=== PATIENT | female | born 1940 | race Caucasian/White ===

== ENCOUNTER 2016-09-05 13:29 | Emergency (ER) | payer MEDICARE ==
[~2016-09-05] VITALS: Ht 165.1 cm; Wt 73.0 kg
[~2016-09-05 13:29] MED LIST: AMLO10 PO; CLON.2 PO; ECOT81TA2 PO; ESTR.625 PO; LEVO.025 PO; LIPI10TA PO; LISI-363 PO; METO50TA PO; MULT-65 PO; OMEP20TA PO; TYLE3 PO
[2016-09-05 13:33] VITALS: BP 118/64; PULSE 64; RESP 16; TEMP 97.5; O2SAT 92
--- NOTE | 2016-09-05 15:45 | PD ---
HPI Chief Complaint: Fall Time Seen by Provider: 13:50 Travel History International Travel<30 days: No Contact w/Intl Traveler<30days: No Traveled to known affect area: No History of Present Illness HPI This 76-year-old woman who presents to the emergency department complaining of headache and drowsiness and dizziness since a fall about 7 AM. She has a history of chronic unsteadiness of frequent falls. States she always falls backwards. She has a meningioma, as well as vertebrobasilar vascular disease. She is not on any blood thinners. No other complaints. History Past Medical History Narrative Medical Meningioma Vertebrobasilar disease Recall his Hypertension AVR Hyperlipidemia Hypothyroidism Tetanus Vaccination: < 5 Years Influenza Vaccination: Yes Menopausal: Yes Social History Alcohol Use: No Tobacco Use: No Allergies-Medications (Allergen,Severity, Reaction): Coded Allergies: No Known Allergies (Verified , 09/05/16) Reported Meds & Prescriptions Reported Meds & Active Scripts Active Tylenol #3 (Acetaminophen/Codeine Phosphate) Acetaminophen 300/30 Codeine Tab 1 Tab PO Q6H PRN FOR PAIN Ecotrin (Aspirin) 81 Mg Tabec 81 Mg PO DAILY PRN Catapres 0.2 mg (Clonidine HCl) 0.2 Mg Tab 0.3 Mg PO BID Norvasc (Amlodipine Besylate) 10 Mg Tab 10 Mg PO DAILY PRN Reported Levothyroxine 25 mcg (Levothyroxine Sodium) 25 Mcg Tab 50 Mcg PO DAILY Multi-Vitamin Daily (Multivitamins) Daily Tab 1 PO Omeprazole 20 mg (Omeprazole) 20 Mg Tab 20 Mg PO DAILY Lipitor 10 Mg Tab (Atorvastatin Calcium) 10 Mg Tab 10 Mg PO HS Metoprolol Tartrate 50 mg (Metoprolol Tartrate) 50 Mg Tab 75 Mg PO BID Lisinopril 20 mg (Lisinopril) 20 Mg Tab 20 Mg PO BID Premarin (Estrogens Conjugated) 0.625 Mg Tab 0.5 Mg PO Review of Systems Except as stated in HPI: all other systems reviewed are Neg Physical Exam Narrative GENERAL: [-76-year-old woman, no acute distress. SKIN: Focused skin assessment warm/dry. HEAD: Normocephalic. Acetaminophen evidence of trauma. EYES: Pupils equal and round. No scleral icterus. No injection or drainage. ENT: No nasal bleeding or discharge. Mucous membranes pink and moist. NECK: Minimal midline tenderness. Moves neck freely. No guarding. CARDIOVASCULAR: Regular rate and rhythm. No murmur appreciated. RESPIRATORY: No accessory muscle use. Clear to auscultation. Breath sounds equal bilaterally. GASTROINTESTINAL: Abdomen soft, non-tender, nondistended. Hepatic and splenic margins not palpable. MUSCULOSKELETAL: No obvious deformities. No clubbing. No cyanosis. No edema. NEUROLOGICAL: Awake and alert. No obvious cranial nerve deficits. Motor grossly within normal limits. Normal speech. Data Data Last Documented VS Vital Signs Date Time Temp Pulse Resp B/P Pulse Ox O2 Delivery O2 Flow Rate FiO2 09/05/16 17:08 58 16 153/72 98 Room Air 09/05/16 13:[address] Brain W/O Iv Contrast(Rout) (09/05/16 ) [facility] Medical Decision Making Medical Screen Exam Complete: Yes Emergency Medical Condition: Yes Interpretation(s) CT head: Increase in size of injury cranial mass, as probable meningioma. Otherwise Negative. Differential Diagnosis Head injury, bleed, chronic dizziness, other Narrative Course Medical decision making INITIAL: 76-year-old woman, presents after a fall. History of chronic unsteadiness and frequent falls. We'll check CT, if negative discharge. Diagnosis Primary Impression: Headache Additional Impression: Fall Additional Instructions: Follow-up with your primary doctor in the next 2-4 days. Take every precaution prevent falls. Consider weaning off her sedating medication including Restoril, Xanax, and tramadol. Med/Other Pt SpecificInfo: No Change to Meds Disposition: 01 DISCHARGE HOME Condition: Stable Josep Garrison MD Sep 05, 2016 15:45
[2016-09-05 17:08] VITALS: BP 153/72; PULSE 58; RESP 16; O2SAT 98
--- NOTE | 2016-09-05 17:09 | RADRPT ---
EXAM DATE/TIME: 09/05/2016 16:22 [facility] COMPARISON: CT BRAIN W/O CONTRAST, September 05, 2014, 15:12. INDICATIONS : Fell today hit back of head. RADIATION DOSE: 56.37 CTDIvol (mGy) MEDICAL HISTORY : Hypertension. Hypothyroidism. Meningioma,vertebrobasilar disease SURGICAL HISTORY : None. ENCOUNTER: Initial ACUITY: 1 day PAIN SCALE: 3/10 LOCATION: cranial TECHNIQUE: Multiple contiguous axial images were obtained of the head. Using automated exposure control and adj ustment of the mA and/or kV according to patient size, radiation dose was kept as low as reasonably a chievable to obtain optimal diagnostic quality images. 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 No evidence of intracranial hemorrhage, new mass, or a cute infarct. Ventricles within normal limits. POSTERIOR FOSSA: The cerebellum and brainstem are intact. The 4th ventricle is midline. The cerebellopontine angle i s unremarkable. EXTRACRANIAL: The visualized portion of the orbits is intact. SKULL: The calvaria is intact. No evidence of skull fracture. CONCLUSION: 1. Right-sided lateral temporoparietal extra-axial mass is again identified. It has increased in size when compared to the prior study of 09/05/2014. Now measuring 2.8 x 1.4 cm compared to 2.1 x 1.0 cm. A gain may represent a meningioma but is nonspecific, particularly given its increase in size.. 2. No acute hemorrhage. Galdino Alegria MD on September 05, 2016 at 17:03 Board Certified Radiologist. This report was verified electronically.
== END 2016-09-05 17:38 | disposition home or self-care (01) ==
LOC: PHED 13:29
DX: R51 Headache (principal); W19.XXXA Unspecified fall, initial encounter
CPT/HCPCS: 70450; 99284

== ENCOUNTER 2017-03-03 12:56 | Emergency (ER) | payer MEDICARE ==
[~2017-03-03] VITALS: Ht 162.6 cm; Wt 85.0 kg
[2017-03-03 13:03] VITALS: BP 131/60; PULSE 51; RESP 16; TEMP 97.5; O2SAT 98
== END 2017-03-03 14:15 | disposition left against medical advice (07) ==
LOC: PHED 12:56
DX: S09.90XA Unspecified injury of head, initial encounter (principal); W01.0XXA Fall on same level from slipping, tripping and stumbling without subsequent striking against object, initial encounter; Z53.21 Procedure and treatment not carried out due to patient leaving prior to being seen by health care provider
CPT/HCPCS: 99281

== ENCOUNTER 2017-04-16 12:36 | Inpatient (IN) | payer MEDICARE ==
[~2017-04-16 12:36] MED LIST changes: +DEXAMETHASONE SOD PHOS 4 MG/ML VIAL IV ONE; +GLYCOPYRROLATE 1 MG/5 ML SYRINGE IV PUSH ONE; +LIDOCAINE HCL 1% PF 5 ML SYRINGE OTHER ONE; +ONDANSETRON HCL 4 MG/2 ML VIAL IV ONE; +PROPOFOL 200 MG/20 ML AMP IV ONE; +ROCURONIUM INJ 50 MG/5 ML SYRINGE IV PUSH ONE
[2017-04-16 12:47] VITALS: BP 144/63; PULSE 87; RESP 18; TEMP 97.8; O2SAT 96
--- NOTE | 2017-04-16 13:29 | PD ---
HPI Chief Complaint: Fall Time Seen by Provider: 13:18 Travel History International Travel<30 days: No Contact w/Intl Traveler<30days: No Traveled to known affect area: No History of Present Illness HPI 77-year-old female that presents to the ED for evaluation of head injury. Per patient apparently she was seen at a different hospital yesterday roxanna Bhat had a CAT scan that showed bleeding. The time patient apparently left the hospital. Unclear as to why. Apparently the patient no wide to stay at the hospital at the time. She apparently was contacted today and was told that she had a severe head bleed and needed to come to the ED immediately. She has a history of brain tumor and is currently being under the watch of Dr. Gutierres. Per patient she was referred to a neurosurgeon who "wanted to cut it off" but she did not believe him and did not want to have it done at the time. She states that she's been having problems with balance since around Christmastime she fell and hit her head. She has been having issues since. Unclear as to what brought the examination yesterday but she states that she had a fall. Again unclear what she left but it seems like she left AMA. She did not want to stay at the time. Unclear as to why. She reports that she still having balance issues. She does have a slight headache. She does have a skin abrasion to the right side of the head. Per patient she's been feeling a little more lethargic. She denies any chest pain or shortness of breath. No blood thinner use. No leg or arm weakness. Slight headache of 2 out of 10. PFSH Past Medical History Autoimmune Disease: No Blood Disorders: No Anxiety: Yes Heart Rhythm Problems: Yes Cancer: No Cardiovascular Problems: Yes High Cholesterol: Yes Cerebrovascular Accident: Yes (09/2014) Diminished Hearing: No Endocrine: No Gastrointestinal Disorders: Yes GERD: Yes Genitourinary: No Headaches: Yes Hypertension: Yes Immune Disorder: No Musculoskeletal: Yes Neurologic: No Psychiatric: No Reproductive: No Respiratory: No ?: Not Menopausal: Yes Past Surgical History Abdominal Aneurysm Repair: Yes Abdominal Surgery: Yes (AORTIC ANEURYSM REPAIR, appendectomy) AICD: No Appendectomy: Yes Arteriovenous Shunt: No Cardiac Surgery: Yes (2006 AORTIC ANEURYSM REPAIR WITH AORTIC VALVE REPLACEMENT) Cholecystectomy: Yes (1998) Gynecologic Surgery: Yes (HYSTERECTOMY) Hysterectomy: Yes (COMPLETE AGE 48) Insulin Pump: No Joint Replacement: No Pacemaker: No Thoracic Surgery: No Tonsillectomy: Yes ( CHILD) Valve Replacement: Yes (X2) Other Surgery: Yes Social History Alcohol Use: No Tobacco Use: No Substance Use: No Allergies-Medications (Allergen,Severity, Reaction): Coded Allergies: No Known Allergies (Verified Adverse Reaction, Unknown, 04/16/17) Reported Meds & Prescriptions Reported Meds & Active Scripts Active Reported Pilocarpine 5 Mg Tab 5 Mg PO Q6HR Tramadol (Tramadol HCl) 50 Mg Tab 50 Mg PO Q6H PRN Temazepam 15 Mg Cap 15 Mg PO HS PRN Multi-Vitamin Daily (Multiple Vitamin) 1 Tab Tab 1 Tab PO DAILY Omeprazole 20 Mg Tab 20 Mg PO DAILY Metoprolol Tartrate 25 Mg Tab 25 Mg PO BID Lisinopril 5 Mg Tab 5 Mg PO DAILY Levothyroxine (Levothyroxine Sodium) 50 Mcg Tab 50 Mcg PO DAILY Hydrocodone-Acetaminophen 5-325 mg Tab 1 Tab PO Q4H PRN Estradiol 1 Mg Tab 1 Mg PO DAILY Clonidine (Clonidine HCl) 0.1 Mg Tab 0.1 Mg PO BID Atorvastatin (Atorvastatin Calcium) 20 Mg Tab 20 Mg PO HS Aspirin Low Dose (Aspirin) 81 Mg Chew 81 Mg CHEW DAILY Amlodipine (Amlodipine Besylate) 10 Mg Tab 10 Mg PO DAILY Alprazolam 0.5 Mg Tab 0.5 Mg PO Q6H PRN Review of Systems Except as stated in HPI: all other systems reviewed are Neg Physical Exam Narrative GENERAL: SKIN: Warm and dry. HEAD: Atraumatic. Normocephalic. Patient has a skin abrasion with skin tear on the right side of the forehead. Slightly tender to touch. Minimal bleeding noted. EYES: Pupils equal and round 2 mm reactive to light and accommodation. No scleral icterus. No injection or drainage. ENT: No nasal bleeding or discharge. Mucous membranes pink and moist. Tongue is midline. No uvula deviation. NECK: Trachea midline. No JVD. CARDIOVASCULAR: Regular rate and rhythm. No murmurs, S3, S4. RESPIRATORY: No accessory muscle use. Clear to auscultation. Breath sounds equal bilaterally. GASTROINTESTINAL: Abdomen soft, non-tender, nondistended. Hepatic and splenic margins not palpable. MUSCULOSKELETAL: Extremities without clubbing, cyanosis, or edema. No obvious deformities. Full range of motion of the upper and lower extremities bilaterally. 2+ pulses bilaterally. NEUROLOGICAL: Awake and alert. No obvious cranial nerve deficits. Motor grossly within normal limits. Five out of 5 muscle strength in the arms and legs. Normal speech. PSYCHIATRIC: Appropriate mood and affect; insight and judgment normal. Data Data Last Documented VS Vital Signs Date Time Temp Pulse Resp B/P (MAP) Pulse Ox O2 Delivery O2 Flow Rate FiO2 04/16/17 14:05 52 18 173/71 (105) 95 Room Air 04/16/17 12:[address] Brain W/O Iv Contrast(Rout) (04/16/17 ) Ct Cerv Spine W/O Contrast (04/16/17 ) Complete Blood Count With Diff (04/16/17 13:26) Comprehensive Metabolic Panel (04/16/17 13:26) Prothrombin Time / Inr (Pt) (04/16/17 13:26) Act Partial Throm Time (Ptt) (04/16/17 13:26) Urinalysis - C+S If Indicated (04/16/17 13:26) Magnesium (Mg) (04/16/17 13:26) Chest, Single Ap (04/16/17 13:26) Iv Access Insert/Monitor (04/16/17 13:26) Ecg Monitoring (04/16/17 13:26) Oximetry (04/16/17 13:26) Admit Order (Ed Use Only) (04/16/17 14:09) Labs Laboratory Tests Test 04/16/17 13:50 White Blood Count 12.1 TH/MM3 Red Blood Count 3.90 MIL/MM3 Hemoglobin 11.4 GM/DL Hematocrit 35.0 % Mean Corpuscular Volume 89.9 FL Mean Corpuscular Hemoglobin 29.3 PG Mean Corpuscular Hemoglobin Concent 32.6 % Red Cell Distribution Width 14.5 % Platelet Count 197 TH/MM3 Mean Platelet Volume 8.4 FL Neutrophils (%) (Auto) 76.4 % Lymphocytes (%) (Auto) 15.5 % Monocytes (%) (Auto) 7.7 % Eosinophils (%) (Auto) 0.0 % Basophils (%) (Auto) 0.4 % Neutrophils # (Auto) 9.3 TH/MM3 Lymphocytes # (Auto) 1.9 TH/MM3 Monocytes # (Auto) 0.9 TH/MM3 Eosinophils # (Auto) 0.0 TH/MM3 Basophils # (Auto) 0.0 TH/MM3 CBC Comment DIFF FINAL Differential Comment Prothrombin Time 11.1 SEC Prothromb Time International Ratio 1.1 RATIO Activated Partial Thromboplast Time 22.7 SEC Blood Urea Nitrogen 24 MG/DL Creatinine 1.12 MG/DL Random Glucose 118 MG/DL Total Protein 6.8 GM/DL Albumin 3.5 GM/DL Calcium Level 8.8 MG/DL Magnesium Level 2.8 MG/DL Alkaline Phosphatase 114 U/L Aspartate Amino Transf (AST/SGOT) 23 U/L Alanine Aminotransferase (ALT/SGPT) 29 U/L Total Bilirubin 0.2 MG/DL Sodium Level 143 MEQ/L Potassium Level 4.1 MEQ/L Chloride Level 108 MEQ/L Carbon Dioxide Level 31.0 MEQ/L Anion Gap 4 MEQ/L Estimat Glomerular Filtration Rate 47 ML/MIN MDM Medical Decision Making Medical Screen Exam Complete: Yes Emergency Medical Condition: Yes Medical Record Reviewed: Yes Interpretation(s) CBC & BMP Diagram 04/16/17 13:50 Total Protein 6.8, Albumin 3.5, Calcium Level 8.8, Magnesium Level 2.8 H, Alkaline Phosphatase 114, Aspartate Amino Transf (AST/SGOT) 23, Alanine Aminotransferase (ALT/SGPT) 29, Total Bilirubin 0.[address] 04/16/17 0000 Signed Impressions: Service Date/Time: Sunday, April 16, 2017 13:22 - CONCLUSION: 1.8 cm left subdural hygroma. Acute blood products there is well. 7 mm left to right shift. Benito Dai MD FACR Cervical Spine CT 04/16/17 0000 Signed Impressions: Service Date/Time: Sunday, April 16, 2017 13:22 - CONCLUSION: Degenerative changes. Degenerative retrolisthesis C5 on C6 and anterolisthesis C4 on 5. No fracture. Ramiro Romeo MD Differential Diagnosis ICH versus brain bleed versus brain mass versus CVA versus TIA versus headache Narrative Course 77-year-old female that presents to the ED for evaluation of brain bleed. Patient was properly examined and was found to have signs and symptoms concerning for brain bleed. Labs and imaging were ordered. I instructed ED nurse in charge nurse to make a priority for this patient to have bedrest patient likely has a brain bleed. CT and labs were positive for brain bleed. Case discussed with [place] for Dr. España who states to admit patient to insurance agency manager and Dr. España will likely do surgery today. This was discussed with the patient and family who agree with plan. Case discussed with Dr. Macias who agrees to admission. Diagnosis Primary Impression: Subdural bleeding Additional Impressions: Brain bleed Brain mass Admitting Information Admitting Physician Requests: Admit Devon Melton Apr 16, 2017 13:29
--- NOTE | 2017-04-16 13:45 | RADRPT ---
EXAM DATE/TIME: 04/16/2017 13:22 [facility] COMPARISON: CT BRAIN W/O CONTRAST, September 05, 2016, 16:22. INDICATIONS : Head pain due to recent falls. RADIATION DOSE: 56.35 CTDIvol (mGy) MEDICAL HISTORY : Hypertension. Cerebrovascular disease. Cardiovascular disease SURGICAL HISTORY : Hysterectomy. ENCOUNTER: Initial ACUITY: 2 days PAIN SCALE: 3/10 LOCATION: Bilateral cranial TECHNIQUE: Multiple contiguous axial images were obtained of the head. Using automated exposure control and adj ustment of the mA and/or kV according to patient size, radiation dose was kept as low as reasonably a chievable to obtain optimal diagnostic quality images. DICOM format image data is available electro nically for review and comparison. FINDINGS: There is 1.8 cm left subdural hygroma does have some acute blood proximal. 7 millimeters of left-to- right shift with moderate ventricular mass effect.. Right hemisphere is unremarkable There is no skull fracture. Posterior fossa is unremarkable.. CONCLUSION: 1.8 cm left subdural hygroma. Acute blood products there is well. 7 mm left to right shift. Benito Dai MD FACR on April 16, 2017 at 13:38 Board Certified Radiologist. This report was verified electronically.
[2017-04-16 14:05] VITALS: BP 173/71; PULSE 51; PULSE 52; RESP 18; O2SAT 95; O2SAT 96
[2017-04-16 14:06] LABS: AUTOMATED NEUTROPHIL # 9.3 TH/MM3 (1.8-7.7); BASOPHIL % 0.4 % (0.0-2.0); HEMOGLOBIN 11.4 GM/DL (11.6-15.3); LYMPH % 15.5 % (9.0-44.0); LYMPHOCYTE # 1.9 TH/MM3 (1.0-4.8); MEAN CELL VOLUME 89.9 FL (80.0-100.0); MEAN CORPUSCULAR HEMOGLOBIN 29.3 PG (27.0-34.0); MEAN CORPUSCULAR HGB CONC 32.6 % (32.0-36.0); MEAN PLATELET VOLUME 8.4 FL (7.0-11.0); MONO % 7.7 % (0.0-8.0); MONOCYTE # 0.9 TH/MM3 (0-0.9); NEUT % 76.4 % (16.0-70.0); PLATELET COUNT 197 TH/MM3 (150-450); RED CELL DISTRIBUTION WIDTH 14.5 % (11.6-17.2); WHITE BLOOD COUNT 12.1 TH/MM3 (4.0-11.0)
--- NOTE | 2017-04-16 14:09 | PD.CONS ---
(Matti España MD) HPI Consult Requested By Primary Care Physician Unknown (Matti España MD) Service NRS Consult Requested By ED Physician Reason for Consult Subdural Hematoma History of Present Illness Ms. Uribe is a 77 year old female who presents to [facility] today following a fall and head trauma. Ms. Uribe has had repeated falls at home due to chronic gait and balance instability. She went to [facility] ED yesterday where a CT head showed a moderate left subdural hematoma. However it was reported the patient left AMA. She had a fall again this morning and hit her head. She has had progressive headaches. She also complains of some speech difficulties, some weakness to her right side. CT Head obtained today showed large left chronic subdural hygroma with acute components with significant mass effect and 7-8 mm midline shift. She is becoming increasingly drowsy. A neurosurgical evaluation was requested. (Bonny Salmon) Review of Systems Constitutional: DENIES: Fever, Chills Eyes: DENIES: Vision loss Respiratory: DENIES: Hemoptysis, Shortness of breath Cardiovascular: DENIES: Chest pain Gastrointestinal: DENIES: Nausea, Vomiting Neurologic: COMPLAINS OF: Abnormal gait, Headache, Localized weakness, Speech Problems, Poor Balance, DENIES: Paresthesias, Seizures (Bonny Salmon) Past Family Social History Allergies: Coded Allergies: No Known Allergies (Verified Adverse Reaction, Unknown, 04/16/17) Past Medical History History of known right side meningioma CVA Hypertension Hyperlipidemia GERD Anxiety Past Surgical History Appendectomy Aortic aneurysm repair Hysterectomy Cholecystectomy Tonsillectomy Reported Medications reviewed in EMR Family History reviewed, noncontributory to her current subdural hematoma Social History lives with , she denies tobacco, etoh, or illicit drug use (Bonny Salmon) Physical Exam Vital Signs Vital Signs Date Time Temp Pulse Resp B/P (MAP) Pulse Ox O2 Delivery O2 Flow Rate FiO2 04/16/17 14:05 52 18 173/71 (105) 95 Room Air 04/16/17 14:05 51 18 173/71 (105) 96 Room Air 04/16/17 12:47 97.8 87 18 144/63 (90) 96 Physical Exam Ms Uribe is awake but appears mildly drowsy, oriented to time, place and person. Speech is slow and intermittently aphasia. Following simple commands. Cranial nerve examination: pupils to be equal, round, and reactive to light. Extra-ocular movements are intact. Facial motor and sensory function are normal and symmetrical. The uvula is midline and elevates symmetrically with the soft palate. Gross hearing intact to finger rub bilaterally. Sternocleidomastoid and trapezius muscles have normal and symmetrical strength. Neck is soft and supple. Muscle testing reveals normal bulk and tone overall. 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 Right lower extremity 2-3/5, left lower extremity 4/5. Sensory examination is intact to light touch in both the upper and lower extremities, symmetrically. Deep tendon reflexes are 1+ and symmetrical in the biceps, triceps, and brachioradialis, bilaterally, in the upper extremities. In the lower extremities , the patellar and Achilles are 1+, bilaterally. There is a bilateral plantar flexion response. There is no ankle clonus. Cerebellar examination is grossly intact to [id number] test. Heart: Normal sinus rhythm Respiratory: clear to auscultate bilaterally Skin: Right forehead skin abrasion with bleeding. Diffuse bruising in her lower extremities Laboratory Laboratory Tests Test 04/16/17 13:50 White Blood Count 12.1 Red Blood Count 3.90 Hemoglobin 11.4 Hematocrit 35.0 Mean Corpuscular Volume 89.9 Mean Corpuscular Hemoglobin 29.3 Mean Corpuscular Hemoglobin Concent 32.6 Red Cell Distribution Width 14.5 Platelet Count 197 Mean Platelet Volume 8.4 Neutrophils (%) (Auto) 76.4 Lymphocytes (%) (Auto) 15.5 Monocytes (%) (Auto) 7.7 Eosinophils (%) (Auto) 0.0 Basophils (%) (Auto) 0.4 Neutrophils # (Auto) 9.3 Lymphocytes # (Auto) 1.9 Monocytes # (Auto) 0.9 Eosinophils # (Auto) 0.0 Basophils # (Auto) 0.0 CBC Comment DIFF FINAL Differential Comment (Matti España MD) Physical Exam Ms. Uribe is awake but appears mildly drowsy, oriented to time, place and person. Speech is slow and intermittently dysphasic. Following simple commands. Cranial nerve examination: pupils to be equal, round, and reactive to light. Extra-ocular movements are intact. Facial motor and sensory function are normal and symmetrical. The uvula is midline and elevates symmetrically with the soft palate. Gross hearing intact to finger rub bilaterally. Sternocleidomastoid and trapezius muscles have normal and symmetrical strength. Neck is soft and supple. Muscle testing reveals normal bulk and tone overall. 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 Right lower extremity 2-3/5, left lower extremity 4/5. Sensory examination is intact to light touch in both the upper and lower extremities, symmetrically. Deep tendon reflexes are 1+ and symmetrical in the biceps, triceps, and brachioradialis, bilaterally, in the upper extremities. In the lower extremities , the patellar and Achilles are 1+, bilaterally. There is a bilateral plantar flexion response. There is no ankle clonus. Cerebellar examination is grossly intact to [id number] test. Heart: Normal sinus rhythm Respiratory: clear, nonlabored breathing Skin: Right forehead skin abrasion with bleeding. Diffuse bruising in her lower extremities from recurrent falls. (Bonny Salmon) Result Diagram: 04/16/17 1350 Imaging Last [address] 04/16/17 0000 Signed Impressions: Service Date/Time: Sunday, April 16, 2017 13:22 - CONCLUSION: 1.8 cm left subdural hygroma. Acute blood products there is well. 7 mm left to right shift. Benito Dai MD FACR Last 48 hours Impressions Chest X-Ray 04/16/17 1326 Signed Impressions: Service Date/Time: Sunday, April 16, 2017 13:59 - CONCLUSION: 1. Minimal left lower lung zone airspace disease, likely atelectasis. Kaiden Shields MD Head CT 04/16/17 0000 Signed Impressions: Service Date/Time: Sunday, April 16, 2017 13:22 - CONCLUSION: 1.8 cm left subdural hygroma. Acute blood products there is well. 7 mm left to right shift. Benito Dai MD FACR Cervical Spine CT 04/16/17 0000 Signed Impressions: Service Date/Time: Sunday, April 16, 2017 13:22 - CONCLUSION: Degenerative changes. Degenerative retrolisthesis C5 on C6 and anterolisthesis C4 on 5. No fracture. Ramiro Romeo MD (Matti España MD) Imaging Laboratory Tests Test 04/16/17 13:50 White Blood Count 12.1 TH/MM3 Red Blood Count 3.90 MIL/MM3 Hemoglobin 11.4 GM/DL Hematocrit 35.0 % Mean Corpuscular Volume 89.9 FL Mean Corpuscular Hemoglobin 29.3 PG Mean Corpuscular Hemoglobin Concent 32.6 % Red Cell Distribution Width 14.5 % Platelet Count 197 TH/MM3 Mean Platelet Volume 8.4 FL Neutrophils (%) (Auto) 76.4 % Lymphocytes (%) (Auto) 15.5 % Monocytes (%) (Auto) 7.7 % Eosinophils (%) (Auto) 0.0 % Basophils (%) (Auto) 0.4 % Neutrophils # (Auto) 9.3 TH/MM3 Lymphocytes # (Auto) 1.9 TH/MM3 Monocytes # (Auto) 0.9 TH/MM3 Eosinophils # (Auto) 0.0 TH/MM3 Basophils # (Auto) 0.0 TH/MM3 CBC Comment DIFF FINAL Differential Comment Prothrombin Time 11.1 SEC Prothromb Time International Ratio 1.1 RATIO Activated Partial Thromboplast Time 22.7 SEC Blood Urea Nitrogen 24 MG/DL Creatinine 1.12 MG/DL Random Glucose 118 MG/DL Total Protein 6.8 GM/DL Albumin 3.5 GM/DL Calcium Level 8.8 MG/DL Magnesium Level 2.8 MG/DL Alkaline Phosphatase 114 U/L Aspartate Amino Transf (AST/SGOT) 23 U/L Alanine Aminotransferase (ALT/SGPT) 29 U/L Total Bilirubin 0.2 MG/DL Sodium Level 143 MEQ/L Potassium Level 4.1 MEQ/L Chloride Level 108 MEQ/L Carbon Dioxide Level 31.0 MEQ/L Anion Gap 4 MEQ/L Estimat Glomerular Filtration Rate 47 ML/MIN (Bonny Salmon) Assessment and Plan Assessment and Plan Caprini VTE Risk Assessment Caprini VTE Risk Assessment Caprini VTE Risk Assessment: Mod/High Risk (score >= 2) VTE Pharm Contraindication: Hemorrhage Caprini Risk Assessment Model Point Value = 1 Point Value = 2 Point Value = 3 Point Value = 5 Age 41-60 Minor surgery BMI > 25 kg/m2 Swollen legs Varicose veins or History of unexplained or recurrent spontaneous Oral contraceptives or hormone replacement Sepsis (< 1 month) Serious lung disease, including pneumonia (< 1 month) Abnormal pulmonary function Acute myocardial infarction Congestive heart failure (< 1 month) History of inflammatory bowel disease Medical patient at bed rest Age 61-74 Arthroscopic surgery Major open surgery (> 45 min) Laparoscopic surgery (> 45 min) Malignancy Confined to bed (> 72 hours) Immobilizing plaster cast Central venous access Age >= 75 History of VTE Family history of VTE Factor V Leiden Prothrombin [id number] Lupus anticoagulant Anticardiolipin antibodies Elevated serum homocysteine Heparin-induced thrombocytopenia Other congenital or acquired thrombophilia Stroke (< 1 month) Elective arthroplasty Hip, pelvis, or leg fracture Acute spinal cord injury (< 1 month) Prophylaxis Regimen Total Risk Factor Score Risk Level Prophylaxis Regimen 0-1 Low Early ambulation 2 Moderate Order ONE of the following: *Sequential Compression Device (SCD) *Heparin 5000 units SQ BID 3-4 Higher Order ONE of the following medications: *Heparin 5000 units SQ TID *Enoxaparin/Lovenox 40 mg SQ daily (WT < 150 kg, CrCl > 30 mL/min) *Enoxaparin/Lovenox 30 mg SQ daily (WT < 150 kg, CrCl > 10-29 mL/min) *Enoxaparin/Lovenox 30 mg SQ BID (WT < 150 kg, CrCl > 30 mL/min) AND/OR *Sequential Compression Device (SCD) 5 or more Highest Order ONE of the following medications: *Heparin 5000 units SQ TID (Preferred with Epidurals) *Enoxaparin/Lovenox 40 mg SQ daily (WT < 150 kg, CrCl > 30 mL/min) *Enoxaparin/Lovenox 30 mg SQ daily (WT < 150 kg, CrCl > 10-29 mL/min) *Enoxaparin/Lovenox 30 mg SQ BID (WT < 150 kg, CrCl > 30 mL/min) AND *Sequential Compression Device (SCD) (Matti España MD) Attending Statement neuro checks in a serial fashion. Given the large size location on mass effect I recommend a surgical decompression via a left frontal temporal parietal craniotomy with evacuation of subdural hematoma in an attempt to save her life.I have discussed the details including the [id number] details of the surgical procedure, its indications, alternatives, risks, and potential complications. Risks and potential complications include, but are not limited to, infection, blood loss, CSF leak, partial or complete loss of sight in one or both eyes, paresis, paralysis, permanent pain or difficulty swallowing, loss of bowel or bladder function, complications from anesthesia, blood clot, stroke , myocardial infarction, or even . Keppra for seizure prophylaxis A follow-up CT of the head will be obtained in 24 hours. acetaminophen/cooling blanket as needed for temperature greater than 100.4 Pulmonary. aggressive pulmonary toilette, nasotracheal suction, and breathing treatments with nebulizers. Nutrition. NPO Renal. monitor closely urine output, BUN and creatinine Ortega. Monitor intake and output. Monitor electrolytes and replace as indicated per ICU electrolyte replacement protocol. ENDO: Monitor bedside glucose and initiate low-dose insulin sliding scale as indicated for glucose greater than 180 Protonix for stress ulcer prophylaxis Yunior hose and SCD's for DVT prophylaxis. The exam, history, and the medical decision-making described in the above note were completed with the assistance of the mid-level provider. I reviewed and agree with the findings presented. I attest that I had a [id number] encounter with the patient on the same day, and personally performed and documented my assessment and findings in the medical record. (Matti España MD) Matti España MD Apr 16, 2017 14:09 Bonny Salmon Apr 16, 2017 14:41
--- NOTE | 2017-04-16 14:11 | RADRPT ---
EXAM DATE/TIME: 04/16/2017 13:22 [facility] COMPARISON: No previous studies available for comparison. INDICATIONS : Neck pain due to recent falls. RADIATION DOSE: 32.74 CTDIvol (mGy) MEDICAL HISTORY : Hypertension. Cerebrovascular disease. Cardiovascular disease SURGICAL HISTORY : Hysterectomy. ENCOUNTER: Initial ACUITY: 2 days PAIN SCALE: 4/10 LOCATION: Bilateral neck region. TECHNIQUE: Volumetric scanning of the cervical spine was performed. Multiplanar reconstructions in the sagittal, coronal and oblique axial planes were performed. Using automated exposure control and adjustment o f the mA and/or kV according to patient size, radiation dose was kept as low as reasonably achievable to obtain optimal diagnostic quality images. DICOM format image data is available electronically f or review and comparison. FINDINGS: VERTEBRAE: Normal vertebral body height. ALIGNMENT: Minimal anterolisthesis C4 on C5 and minimal retrolisthesis C5 on C6. Multilevel degenerative changes greatest from C4-C7.. C2-C3: The bony spinal canal is normal in size. No evidence of disc bulge or herniation. The neural forami na are bilaterally patent. C3-C4: The bony spinal canal is normal in size. No evidence of disc bulge or herniation. The neural forami na are bilaterally patent. C4-C5: The bony spinal canal is normal in size. No evidence of disc bulge or herniation. The neural forami na are bilaterally patent. C5-C6: Osteophytic ridging without canal stenosis. Bilateral neural foraminal encroachment, moderate severit y. C6-C7: Osteophytic ridging without canal stenosis. Bilateral neural foraminal encroachment, moderate severit y. C7-T1: The bony spinal canal is normal in size. No evidence of disc bulge or herniation. The neural forami na are bilaterally patent. CONCLUSION: Degenerative changes. Degenerative retrolisthesis C5 on C6 and anterolisthesis C4 on 5. No fracture. Ramiro Romeo MD on April 16, 2017 at 14:07 Board Certified Radiologist. This report was verified electronically.
[2017-04-16 14:17] LABS: INTERNATIONAL NORMALIZED RATIO 1.1 RATIO; PROTHROMBIN TIME - PATIENT 11.1 SEC (9.8-11.6)
[2017-04-16] MEDS ORDERED: METO25TA3 PO (14:27)
[2017-04-16] MEDS ORDERED: PILO5TAB3 PO (14:27)
[2017-04-16] MEDS ORDERED: OMEP20TA93 PO (14:27)
[2017-04-16] MEDS ORDERED: TRAM50TA PO (14:27)
[2017-04-16] MEDS ORDERED: CLON0.1T PO (14:27)
[2017-04-16] MEDS ORDERED: HYDR-3516 PO (14:27)
[2017-04-16] MEDS ORDERED: ESTR1TAB PO (14:27)
[2017-04-16] MEDS ORDERED: MULT-65 PO (14:27)
[2017-04-16] MEDS ORDERED: ASPI81CH6 CHEW (14:27)
[2017-04-16] MEDS ORDERED: LEVO50TA4 PO (14:27)
[2017-04-16] MEDS ORDERED: ALPR0.5T3 PO (14:27)
[2017-04-16] MEDS ORDERED: TEMA15CA PO (14:27)
[2017-04-16] MEDS ORDERED: AMLO10TA2 PO (14:27)
[2017-04-16] MEDS ORDERED: LISI-519 PO (14:27)
[2017-04-16] MEDS ORDERED: ATOR20TA15 PO (14:27)
[2017-04-16 14:31] LABS: ALBUMIN 3.5 GM/DL (3.4-5.0); ALT (GPT) 29 U/L (10-53); AST (GOT) 23 U/L (15-37); BLOOD UREA NITROGEN 24 MG/DL (7-18); CALCIUM 8.8 MG/DL (8.5-10.1); CHLORIDE 108 MEQ/L (98-107); CREATININE 1.12 MG/DL (0.50-1.00); GLOMERULAR FILTRATION RATE 47 ML/MIN (>89); GLUCOSE,RANDOM 118 MG/DL (74-106); MAGNESIUM 2.8 MG/DL (1.5-2.5); SODIUM (NA) 143 MEQ/L (136-145)
[2017-04-16 14:33] LABS: ALKALINE PHOSPHATASE 114 U/L (45-117); TOTAL BILIRUBIN ADULT 0.2 MG/DL (0.2-1.0); TOTAL PROTEIN 6.8 GM/DL (6.4-8.2)
[2017-04-16 14:58] VITALS: BP 179/76; PULSE 49; RESP 16; O2SAT 98
--- NOTE | 2017-04-16 14:58 | RADRPT ---
EXAM DATE/TIME: 04/16/2017 13:59 [facility] COMPARISON: No previous studies available for comparison. INDICATIONS : Syncope. MEDICAL HISTORY : Hypertension. Hypothyroidism. meningioma, vertrbrobasilar disease, anerysm SURGICAL HISTORY : CABG. ENCOUNTER: Initial ACUITY: 1 day PAIN SCORE: 0/10 LOCATION: Bilateral chest FINDINGS: Minimal airspace disease in the left lower lung zone. Post surgical features of prior cardiac surgery . Cardiomediastinal contours are within normal limits and portable technique. Likely tortuous thoraci c aorta. Osseous structures are intact. CONCLUSION: 1. Minimal left lower lung zone airspace disease, likely atelectasis. Kaiden Shields MD on April 16, 2017 at 14:53 Board Certified Radiologist. This report was verified electronically.
[2017-04-16 15:38] LABS: BILIRUBIN, URINE NEG (NEG); BLOOD, URINE NEG (NEG); GLUCOSE,URINE NEG (NEG); HYALINE CAST, URINE 10 /lpf (RARE); KETONE, URINE NEG (NEG); NITRITE,URINE NEG (NEG); PH, URINE 7.5 (5.0-8.5); SQUAMOUS EPITHELIAL CELL URINE 1 /hpf (0-5); TRANSITIONAL EPI CELLS, URINE <1 /hpf; URINE COLOR YELLOW (YELLW/STRAW); URINE LEUKOCYTE ESTERASE NEG (NEG)
[2017-04-16] MEDS ORDERED: ceFAZolin 2 GM PREMIX 50 ML ONE (15:47)
[2017-04-16] MEDS ORDERED: MICROFIBRILLAR COLLAGEN HEMOSTAT 70 X 35 MM BANDAGE ONE (15:47)
[2017-04-16] MEDS ORDERED: GELFOAM SIZE 100 ONE (15:47)
[2017-04-16] MEDS ORDERED: THROMBIN (TOPICAL) 5,000 UNIT VIAL ONE (15:49)
[2017-04-16] MEDS ORDERED: GENTAMICIN SULFATE 80 MG/2 ML VIAL ONE (15:49)
[2017-04-16] MEDS ORDERED: SODIUM CHLOR 0.9% 1000 ML INJ 1,000 ML IV SCH (16:00)
[2017-04-16] MEDS ORDERED: SENNOSIDES 8.6 MG TAB PO PRN (16:00)
[2017-04-16] MEDS ORDERED: ONDANSETRON HCL 4 MG/2 ML VIAL IV PUSH PRN ×2 (16:00→18:15)
[2017-04-16] MEDS ORDERED: CHLORHEXIDINE GLUCONATE 2 % 1 PACK (2 CLOTHS) TOP PRN (16:00)
[2017-04-16] MEDS ORDERED: ACETAMINOPHEN/HYDROcodone 325 MG/5 MG TAB PO PRN (16:00)
[2017-04-16] MEDS ORDERED: LACTULOSE SYRUP 20 GM/30 ML CUP PO PRN (16:00)
[2017-04-16] MEDS ORDERED: BISACODYL 10 MG SUPP RECTAL PRN ×2 (16:00→18:15)
[2017-04-16] MEDS ORDERED: RESP: ALBUTEROL 2.5 MG/3 ML NEB (PRN) INH (16:00)
[2017-04-16] MEDS ORDERED: MAGNESIUM HYDROXIDE SUSP 30 ML CUP PO PRN (16:00)
[2017-04-16] MEDS ORDERED: ACETAMINOPHEN 325 MG TAB PO PRN ×2 (16:00→18:15)
[2017-04-16] MEDS ORDERED: traMADol HCL 50 MG TAB PO PRN (16:00)
[2017-04-16] MEDS ORDERED: MISCELLANEOUS NURSING INFORMATION XX SCH (16:00)
[2017-04-16] MEDS ORDERED: SODIUM CHLORIDE 0.9% FLUSH 10 ML FLUSH IV FLUSH PRN (16:00)
--- NOTE | 2017-04-16 16:13 | HHI.HP ---
[facility] Service Critical Care Medicine Primary Care Physician Jonny Mcmillan MD Admission Diagnosis acute subdural with shift, traumatic head injury Diagnosis: (1) Subdural hygroma Diagnosis: Principal (2) Dyslipidemia Diagnosis: Secondary (3) Hypertension Diagnosis: Principal (4) History of meningioma of the brain Diagnosis: Principal (5) Sinus bradycardia Diagnosis: Secondary (6) Leukocytosis Diagnosis: Secondary (7) Hormone replacement therapy (HRT) Diagnosis: Secondary (8) Hypothyroidism Diagnosis: Secondary (9) Gastroesophageal reflux disease Diagnosis: Principal (10) Hypermagnesemia Diagnosis: Principal (11) Normocytic anemia Diagnosis: Secondary (12) Dry mouth, unspecified Diagnosis: Secondary (13) Gait disorder Diagnosis: Secondary (14) CKD (chronic kidney disease) stage 3, GFR 30-59 ml/min Diagnosis: Secondary Chief Complaint: Frequent falls, subdural hygroma left-sided Travel History International Travel<30 Days: No Contact w/Intl Traveler <30 Da: No Traveled to Known Affected Are: No History of Present Illness This is a 77-year-old female. Date of admission 04/16/2017. Past medical history includes anxiety, prior CVA, known meningioma, hypertension, disc edema, hypothyroidism, gastroesophageal reflux disease, hormone replacement therapy, chronic kidney disease stage IIIa, history of aVR, history of thoracic aortic aneurysm repaired 2006. Dyslipidemia [facility] yesterday status post fall which is diagnosed with a "brain bleed". She left the facility. She had another mechanical fall today presented to [facility] for further evaluation treatment. This revealed a 1.8 cm left subdural hygroma. Components with a 7 mm [id number]-[id number] shift. Due to these findings, neurosurgery consultation recommended evacuation which was performed on 04/16. Patient focal weakness in the right lower greater than left lower extremity. Positive headache. Visible trauma to the right forehead. Patient is not on any systemic blood thinners however is on aspirin 81 mg daily. Review of Systems Constitutional: COMPLAINS OF: Fatigue, Fever, DENIES: Diaphoretic episodes, Weight gain, Weight loss Endocrine: DENIES: Polydipsia, Polyuria Eyes: DENIES: Blurred vision, Vision loss Ears, nose, mouth, throat: DENIES: Tinnitus, Epistaxis, Sinus Pain, Toothache Respiratory: DENIES: Apneas Cardiovascular: DENIES: Chest pain Gastrointestinal: DENIES: Abdominal pain Genitourinary: DENIES: Urinary incontinence Musculoskeletal: COMPLAINS OF: Joint pain, Neck pain, DENIES: Joint Swelling, Back pain Integumentary: DENIES: Rash Hematologic/lymphatic: DENIES: Bruising Immunologic/allergic: DENIES: Eczema Neurologic: COMPLAINS OF: Headache, Localized weakness, Poor Balance, DENIES: Seizures Psychiatric: COMPLAINS OF: Anxiety, Confusion, DENIES: Agitation, Delusions Past Family Social History Allergies: Coded Allergies: No Known Allergies (Verified Adverse Reaction, Unknown, 04/16/17) Past Medical History Hormone replacement therapy History meningioma History of CVA Hypertension Dyslipidemia Hypothyroidism Gastroesophageal reflux disease Dry mouth Chronic kidney disease stage IIIa Past Surgical History Appendectomy Brow left Porcine aVR Thoracic aortic aneurysm. 2006 Hysterectomy T&A Cholecystectomy Left rotator cuff repair Reported Medications Pilocarpine 5 mg every 6 hours Atorvastatin 20 mg by mouth daily Clonidine 0.1 mg by mouth twice a day Metoprolol 25 mg by mouth twice a day Amlodipine 10 mg by mouth daily Lisinopril 5 mg by mouth daily Aspirin 81 mg by mouth daily Tramadol 50 mg every 6 hours when necessary pain Alprazolam 0.5 mg by mouth every 6 hours when necessary anxiety Temazepam 15 mg at night as needed insomnia Omeprazole 20 mg by mouth daily Levothyroxine 50 g daily Estradiol 1 mg by mouth daily Active Ordered Medications Reviewed in EMR Family History Positive for hypertension, dyslipidemia, coronary disease Social History Denies tobacco, alcohol or illicit drug use Physical Exam Vital Signs Vital Signs Date Time Temp Pulse Resp B/P (MAP) Pulse Ox O2 Delivery O2 Flow Rate FiO2 04/16/17 14:58 49 16 179/76 (110) 98 Nasal Cannula 2.00 04/16/17 14:05 52 18 173/71 (105) 95 Room Air 04/16/17 14:05 51 18 173/71 (105) 96 Room Air 04/16/17 12:47 97.8 87 18 144/63 (90) 96 Physical Exam GENERAL: 77-year-old male resting in bed in no acute distress SKIN: Warm and dry. Abrasions over right forehead. HEAD: Traumatic as above. EYES: Pupils equal and round around 2-3 mm bilaterally and reactive. No scleral icterus. No injection or drainage. ENT: No nasal bleeding or discharge. Mucous membranes pink and moist. NECK: Trachea midline. No JVD. CARDIOVASCULAR: Bradycardic, RR. S1, S2. No S4. Without murmur RESPIRATORY: No accessory muscle use. Clear to auscultation. Breath sounds equal bilaterally. GASTROINTESTINAL: Abdomen soft, non-tender, nondistended. Hypoactive bowel sounds appreciated MUSCULOSKELETAL: Extremities with trace lower extremity edema. 5 NEUROLOGICAL: Awake and alert. No obvious cranial nerve deficits. Strength Right upper extremity 4-5. Right lower extremity 3 out of 5. Left lower extremity 4/5. Left upper extremity 5 out of 5 Laboratory Laboratory Tests Test 04/16/17 13:50 04/16/17 14:45 White Blood Count 12.1 Red Blood Count 3.90 Hemoglobin 11.4 Hematocrit 35.0 Mean Corpuscular Volume 89.9 Mean Corpuscular Hemoglobin 29.3 Mean Corpuscular Hemoglobin Concent 32.6 Red Cell Distribution Width 14.5 Platelet Count 197 Mean Platelet Volume 8.4 Neutrophils (%) (Auto) 76.4 Lymphocytes (%) (Auto) 15.5 Monocytes (%) (Auto) 7.7 Eosinophils (%) (Auto) 0.0 Basophils (%) (Auto) 0.4 Neutrophils # (Auto) 9.3 Lymphocytes # (Auto) 1.9 Monocytes # (Auto) 0.9 Eosinophils # (Auto) 0.0 Basophils # (Auto) 0.0 CBC Comment DIFF FINAL Differential Comment Prothrombin Time 11.1 Prothromb Time International Ratio 1.1 Activated Partial Thromboplast Time 22.7 Blood Urea Nitrogen 24 Creatinine 1.12 Random Glucose 118 Total Protein 6.8 Albumin 3.5 Calcium Level 8.8 Magnesium Level 2.8 Alkaline Phosphatase 114 Aspartate Amino Transf (AST/SGOT) 23 Alanine Aminotransferase (ALT/SGPT) 29 Total Bilirubin 0.2 Sodium Level 143 Potassium Level 4.1 Chloride Level 108 Carbon Dioxide Level 31.0 Anion Gap 4 Estimat Glomerular Filtration Rate 47 Urine Color YELLOW Urine Turbidity CLEAR Urine pH 7.5 Urine Specific [place] 1.019 Urine Protein TRACE Urine Glucose (UA) NEG Urine Ketones NEG Urine Occult Blood NEG Urine Nitrite NEG Urine Bilirubin NEG Urine Urobilinogen LESS THAN 2.0 Urine Leukocyte Esterase NEG Urine RBC 1 Urine WBC 2 Urine Squamous Epithelial Cells 1 Urine Transitional Epithelial Cells <1 Urine Hyaline Casts 10 Microscopic Urinalysis Comment CULT NOT INDICATED Result Diagram: 04/16/17 1350 04/16/17 1350 Imaging Last Impressions Chest X-Ray 04/16/17 1326 Signed Impressions: Service Date/Time: Sunday, April 16, 2017 13:59 - CONCLUSION: 1. Minimal left lower lung zone airspace disease, likely atelectasis. Kaiden Shields MD Head CT 04/16/17 0000 Signed Impressions: Service Date/Time: Sunday, April 16, 2017 13:22 - CONCLUSION: 1.8 cm left subdural hygroma. Acute blood products there is well. 7 mm left to right shift. Benito Dai MD FACR Cervical Spine CT 04/16/17 0000 Signed Impressions: Service Date/Time: Sunday, April 16, 2017 13:22 - CONCLUSION: Degenerative changes. Degenerative retrolisthesis C5 on C6 and anterolisthesis C4 on 5. No fracture. Ramiro Romeo MD Septic Shock Reassessment Septic shock perfusion: reassessment completed Caprini VTE Risk Assessment Caprini VTE Risk Assessment: Mod/High Risk (score >= 2) VTE Pharm Contraindication: Active bleeding Caprini Risk Assessment Model Point Value = 1 Point Value = 2 Point Value = 3 Point Value = 5 Age 41-60 Minor surgery BMI > 25 kg/m2 Swollen legs Varicose veins or History of unexplained or recurrent spontaneous Oral contraceptives or hormone replacement Sepsis (< 1 month) Serious lung disease, including pneumonia (< 1 month) Abnormal pulmonary function Acute myocardial infarction Congestive heart failure (< 1 month) History of inflammatory bowel disease Medical patient at bed rest Age 61-74 Arthroscopic surgery Major open surgery (> 45 min) Laparoscopic surgery (> 45 min) Malignancy Confined to bed (> 72 hours) Immobilizing plaster cast Central venous access Age >= 75 History of VTE Family history of VTE Factor V Leiden Prothrombin [id number] Lupus anticoagulant Anticardiolipin antibodies Elevated serum homocysteine Heparin-induced thrombocytopenia Other congenital or acquired thrombophilia Stroke (< 1 month) Elective arthroplasty Hip, pelvis, or leg fracture Acute spinal cord injury (< 1 month) Prophylaxis Regimen Total Risk Factor Score Risk Level Prophylaxis Regimen 0-1 Low Early ambulation 2 Moderate Order ONE of the following: *Sequential Compression Device (SCD) *Heparin 5000 units SQ BID 3-4 Higher Order ONE of the following medications: *Heparin 5000 units SQ TID *Enoxaparin/Lovenox 40 mg SQ daily (WT < 150 kg, CrCl > 30 mL/min) *Enoxaparin/Lovenox 30 mg SQ daily (WT < 150 kg, CrCl > 10-29 mL/min) *Enoxaparin/Lovenox 30 mg SQ BID (WT < 150 kg, CrCl > 30 mL/min) AND/OR *Sequential Compression Device (SCD) 5 or more Highest Order ONE of the following medications: *Heparin 5000 units SQ TID (Preferred with Epidurals) *Enoxaparin/Lovenox 40 mg SQ daily (WT < 150 kg, CrCl > 30 mL/min) *Enoxaparin/Lovenox 30 mg SQ daily (WT < 150 kg, CrCl > 10-29 mL/min) *Enoxaparin/Lovenox 30 mg SQ BID (WT < 150 kg, CrCl > 30 mL/min) AND *Sequential Compression Device (SCD) Assessment and Plan Assessment and Plan Neuro/Psych: Postop day #0 Left frontal craniotomy, evacuation of subdural hematoma 1.8 cm left frontal hygroma with 7 mm bbdv-sm-ubcuy shift C4/C5 anterolisthesis C 5/C6 retrolisthesis Anxiety disorder NOS History meningioma History of CVA Dry mouth Chronic benzodiazepine use Insomnia Postop day #0 for left frontal craniotomy with evacuation of left subdural hematomata by Dr. España CT brain on admission revealed 1.8 cm left frontal hygroma with a 7 mm left-to- right shift. Goal keep systolic blood pressure less than 160 Currently holding alprazolam 0.5 milligrams every 6 hours when necessary Holding temazepam 15 mg a night for insomnia Holding tramadol 50 mill grams every 6 hours Continue pilocarpine 5 mill grams every 6 hours for dry mouth CV: Hypertension Dyslipidemia Continue clonidine 0.1 mg twice a day, metoprolol 25 mg by mouth twice a day, amlodipine 10 mg daily lisinopril 5 mg daily for hypertension. Continue atorvastatin 20 mg daily for dyslipidemia As needed labetalol and hydralazine to keep systolic blood pressure less than 160 Holding aspirin 81 mg daily light of subdural hematoma as above Resp: Nasal cannula to maintain saturations greater than equal to 92% Incentive spirometry while awake GI: Gastroesophageal reflux disease Patient is currently nothing by mouth. 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 Resume when clinically indicated Endo: Hypothyroidism Sliding-scale insulin with Novulin N with Accu-Cheks before meals/at bedtime to maintain euglycemia/low regimen Continue levothyroxine 50 mcg by mouth daily. Check TSH Renal: Chronic kidney disease stage IIIa Monitor urine output Accurate I's and O's Currently on normal saline with KCl at 100 cc an hour per neurosurgery Heme: Normocytic anemia Leukocytosis Monitor CBC daily. Follow trends Does not meet transfusion thresholds at this time. ID: Monitor for infection Follow-up on UA MSK: Gait and balance disorder PT/OT evaluate and treat FEN: Hyper-magnesium Replace electrolytes as clinically indicated Access - utilize peripheral IV. Central line if indicated Prophylaxis - GI - pantoprazole - DVT - SCD/pharmacological prophylaxis when okay with neurosurgery Level III admission Code Status Full code Discussed Condition With Patient and . Care plan discussed and all questions answered. Problem Qualifiers (1) Hypertension: Qualified Codes: I10 - Essential (primary) hypertension (2) Leukocytosis: Qualified Codes: D72.829 - Elevated white blood cell count, unspecified (3) Hypothyroidism: Qualified Codes: E03.9 - Hypothyroidism, unspecified (4) Gastroesophageal reflux disease: Qualified Codes: K21.9 - Gastro-esophageal reflux disease without esophagitis Alexander Macias MD Apr 16, 2017 16:13
[2017-04-16 16:27] VITALS: BP 181/84
[2017-04-16] MEDS ORDERED: MORPHINE SULFATE 2 MG/ML INJ IV PUSH PRN (16:30)
[2017-04-16] MEDS ORDERED: BUPIVACAINE/EPINEPHRINE 0.25% PF 30 ML VIAL ONE (16:58)
[2017-04-16] MEDS ORDERED: levETIRAcetam 500 MG/5 ML VIAL IV ONE (17:20)
[2017-04-16] MEDS ORDERED: SUGAMMADEX SODIUM 200 MG/2 ML VIAL IV PUSH ONE (17:37)
[2017-04-16] MEDS: levETIRAcetam INJ 500 MG in SODIUM CHLORIDE 0.9% INJ 100 ML IV SCH (18:00)
[2017-04-16] MEDS: NS + KCL 20 MEQ INJ 1,000 ML IV SCH (18:04)
--- NOTE | 2017-04-16 18:12 | PD.OP ---
Operative Report Date of Surgery: Apr 16, 2017 Preoperative Diagnosis: Leftt subdural hematoma Postoperative Diagnosis: Leftt subdural hematoma Procedure: Left frontal craniotomy, evacuation of subdural hematoma Anesthesia: general Surgeon: Matti España Network Intern(s): Beau Lr Operation and Findings: INDICATIONS FOR THE PROCEDURE Ms Uribe is a 66 year old male who was brought to [facility] with recurrent spells of altered mental status. CT of the brain showed a large subdural hematoma on the left parietasl region with increasing maximun thickness of 18mm, mass effect and midline shift of 7mm. A surgical decompression was indicated as recommended by the Trauma Committee of [employer] I have discussed the details including the [id number] details of the surgical procedure, its indications, alternatives, risks, and potential complications. Risks and potential complications include, but are not limited to, infection, blood loss, CSF leak, partial or complete loss of sight in one or both eyes, paresis, paralysis, permanent pain or difficulty swallowing, loss of bowel or bladder function, complications from anesthesia, blood clot, stroke, myocardial infarction, or even . He fully understood. All his questions were answered. No guaranties were given. He voiced requesting the procedure and signed informed consents. He was offered the possibility of delaying the procedure and continues nonoperative treatment. DETAILS OF THE SURGICAL PROCEDURE After the induction of general anesthesia the patient was endotracheally intubated and mechanically ventilated. A Ortega catheter, bilateral SHAHEEN hose and sequential compression devices were placed and kept throughout the procedure. The patient was positioned supine on a 3080 table over a soft mattress. The eyes were tapped shut after ointment was applied by the anesthesiologist to prevent corneal abrasion. A Christine hugger was placed over the exposed lower body to maintain control of the core body temperature. The head was placed on a horseshoe gamboa. All pressure points were carefully padded with egg crate mattress. The left parietal area was shaved, prepped and draped in the usual sterile fashion. Initially, a small linear incision was outlined on the left frontal scalp and infiltrated with 1% lidocaine with epinephrine. A skin incision was made with a #10 blade down to the level of the periosteum. Using the TPS drill and craniotome attachment, a jeevan hole was made in the left fontal region. Small bleeders were coagulated with a bipolar. The dura was carefully coagulated with the bipolar in a cruciform fashion and opened with a 15 blade. There was a thick hematoma with associated thick membranes, and despite attempt, a proper decompression could not be achieved through the jeevan hole. The incision was then extended with a #10 blade, and a withlander retractor was placed. Using the TPS and using the footplate attachment, a parietal craniotomy flap was elevated. The dura was bulging, with underlying dark coloration related to the subdural hematoma. The dura was opened with a 15 blade and metzembaun scissors and a the subdural hematoma was causing significant mass effect over the brain, was evacuated by gentle irrigation and sent to the lab for histologic analysis. The subdural membranes were opened under direct visualization, and bleeding was controlled using the bipolar transformer mechanic. Then the incision was irrigated with saline solution. The dural edges were tacked to the bone. The craniotomy flap was then repositioned and secured in place using Striker plates and screws. A 7 millimeter Bud-Gomez drain was then left in the subdural space and externalized through a separate stab incision. The incision was then closed in layers. 0 Vicryl in interrupted sutures were used to close the temporalis fascia. The galea was closed with interrupted 3- 0 Vicryl. Grant were applied to the skin. The drain was secured with a 3-0 nylon. At the end of the procedure, the sponge, needle and instrument counts were all correct. Estimated blood loss was less than 50 cc. No blood transfusion was given. No intraoperative complications occurred. The patient received prophylactic antibiotics. The patient was then transferred to the recovery room in stable condition. Matti España MD Apr 16, 2017 18:12
[2017-04-16] MEDS ORDERED: DO NOT ADM ANY ANTICOAGULANT DRUGS PRN (18:14)
[2017-04-16] MEDS ORDERED: MAGNESIUM SULFATE INJ 4 GM in SODIUM CHLORIDE 0.9% INJ 100 ML IV PRN (18:15)
[2017-04-16] MEDS ORDERED: POTASSIUM CHLOR 20 MEQ PREMIX 100 ML IV PRN (18:15)
[2017-04-16] MEDS ORDERED: CALCIUM GLUCONATE 10% 1 GM/10 ML VIAL IV PRN (18:15)
[2017-04-16] MEDS ORDERED: MORPHINE SULFATE 2 MG/ML INJ IV PRN (18:15)
[2017-04-16] MEDS: MORPHINE SULFATE 2 MG/ML INJ IV PRN ×2 (18:30→23:38)
[2017-04-16] MEDS ORDERED: DEXTROSE 50% IN WATER 50 ML VIAL(D50) IV PUSH PRN (18:30)
[2017-04-16] MEDS ORDERED: GLUCAGON 1 MG/ML VIAL OTHER PRN (18:30)
[2017-04-16] MEDS: hydrALAZINE HCL 20 MG/ML VIAL IV PUSH PRN ×2 (18:40→23:39)
[2017-04-16 19:52] VITALS: O2SAT 97
[2017-04-16 20:00] VITALS: BP 132/67; PULSE 62; RESP 16; TEMP 97.6; O2SAT 97
[2017-04-16] MEDS: ACETAMINOPHEN/HYDROcodone 325 MG/10 MG TAB PO PRN (20:10)
[2017-04-16] MEDS: ALPRAZolam 0.5 MG TAB PO PRN (20:10)
[2017-04-16] MEDS: SODIUM CHLORIDE 0.9% FLUSH 10 ML FLUSH IV FLUSH SCH (20:10)
[2017-04-16] MEDS: DOCUSATE SODIUM 100 MG CAP PO SCH (20:11)
[2017-04-16] MEDS: METOPROLOL TARTRATE 25 MG TAB PO SCH (20:11)
[2017-04-16] MEDS: ATORVASTATIN 20 MG TAB PO SCH (20:11)
[2017-04-16] MEDS: cloNIDine HCL 0.1 MG TAB PO SCH (20:11)
[2017-04-16] MEDS ORDERED: DOCUSATE SODIUM 50 MG/SENNA 8.6 MG TAB PO SCH (21:00)
[2017-04-16] MEDS: INSULIN NovoLIN REGULAR SUPPLEMENTAL SCALE SQ SCH (21:00)
[2017-04-16] MEDS: ARTIFICIAL TEARS OPTH SOLN 15 ML BTL EACH EYE SCH (23:38)
[2017-04-16] MEDS: LABETALOL HCL 100 MG/20 ML VIAL IV PUSH PRN (23:40)
[2017-04-17] VITALS (8 sets, daily range): BP systolic 148–167; BP diastolic 67–70; PULSE 56–76; RESP 13–18; TEMP 97.7–98.4; O2SAT 92–97
[2017-04-17] MEDS: ACETAMINOPHEN/HYDROcodone 325 MG/10 MG TAB PO PRN (03:30)
[2017-04-17] MEDS: CHLORHEXIDINE GLUCONATE 2 % 1 PACK (2 CLOTHS) TOP SCH (03:42)
[2017-04-17 04:50] LABS: INTERNATIONAL NORMALIZED RATIO 1.1 RATIO; PROTHROMBIN TIME - PATIENT 11.1 SEC (9.8-11.6)
[2017-04-17 05:01] LABS: ALBUMIN 3.2 GM/DL (3.4-5.0); ALT (GPT) 29 U/L (10-53); AST (GOT) 21 U/L (15-37); BICARBONATE 26.8 MEQ/L (21.0-32.0); BLOOD UREA NITROGEN 14 MG/DL (7-18); CALCIUM 8.3 MG/DL (8.5-10.1); CHLORIDE 110 MEQ/L (98-107); CREATININE 0.98 MG/DL (0.50-1.00); GLOMERULAR FILTRATION RATE 55 ML/MIN (>89); GLUCOSE,RANDOM 143 MG/DL (74-106); MAGNESIUM 2.2 MG/DL (1.5-2.5); PHOSPHORUS 3.3 MG/DL (2.5-4.9); SODIUM (NA) 144 MEQ/L (136-145)
[2017-04-17 05:11] LABS: ALKALINE PHOSPHATASE 118 U/L (45-117); TOTAL BILIRUBIN ADULT 0.2 MG/DL (0.2-1.0); TOTAL PROTEIN 6.6 GM/DL (6.4-8.2)
[2017-04-17] MEDS: PILOCARPINE HCL 5 MG TAB PO SCH ×5 (06:07→23:05)
[2017-04-17] MEDS: NS + KCL 20 MEQ INJ 1,000 ML IV SCH ×3 (06:08→20:45)
[2017-04-17] MEDS: levETIRAcetam INJ 500 MG in SODIUM CHLORIDE 0.9% INJ 100 ML IV SCH ×2 (06:09→17:16)
[2017-04-17] MEDS: ceFAZolin 2 GM PREMIX 50 ML IV SCH ×2 (06:09→12:53)
[2017-04-17] MEDS: LEVOTHYROXINE SODIUM 50 MCG TAB PO SCH (06:09)
--- NOTE | 2017-04-17 06:19 | HHI.CCPN ---
Subjective Remarks/Hospital Course This is a 77-year-old female. Date of admission 04/16/2017. Past medical history includes anxiety, prior CVA, known meningioma, hypertension, disc edema, hypothyroidism, gastroesophageal reflux disease, hormone replacement therapy, chronic kidney disease stage IIIa, history of aVR, history of thoracic aortic aneurysm repaired 2006. Dyslipidemia [facility] yesterday status post fall which is diagnosed with a "brain bleed". She left the facility. She had another mechanical fall today presented to [facility] for further evaluation treatment. This revealed a 1.8 cm left subdural hygroma. Components with a 7 mm yrsw-gw-pgblg shift. Due to these findings, neurosurgery consultation recommended evacuation which was performed on 04/16. Patient focal weakness in the right lower greater than left lower extremity. Positive headache. Visible trauma to the right forehead. Patient is not on any systemic blood thinners however is on aspirin 81 mg daily. Subjective 04/17: Afebrile. Resting comfortably in bed in no acute distress. No seizure activity. No change in mental status. Objective Vital Signs Date Time Temp Pulse Resp B/P (MAP) Pulse Ox O2 Delivery O2 Flow Rate FiO2 04/17/17 04:30 16 04/17/17 04:00 97.8 63 148/70 (96) 92 04/16/17 19:52 Nasal Cannula 1.00 Intake and Output 04/17/17 04/17/17 04/18/17 08:00 16:00 00:00 Intake Total 420 ml Output Total 1125 ml Balance -705 ml Result Diagram: 04/16/17 1350 04/17/17 0354 Imaging Last Impressions Chest X-Ray 04/16/17 1326 Signed Impressions: Service Date/Time: Sunday, April 16, 2017 13:59 - CONCLUSION: 1. Minimal left lower lung zone airspace disease, likely atelectasis. Kaiden Shields MD Head CT 04/16/17 0000 Signed Impressions: Service Date/Time: Sunday, April 16, 2017 13:22 - CONCLUSION: 1.8 cm left subdural hygroma. Acute blood products there is well. 7 mm left to right shift. Benito Dai MD FACR Cervical Spine CT 04/16/17 0000 Signed Impressions: Service Date/Time: Sunday, April 16, 2017 13:22 - CONCLUSION: Degenerative changes. Degenerative retrolisthesis C5 on C6 and anterolisthesis C4 on 5. No fracture. Ramiro Romeo MD Objective Remarks GENERAL: 77-year-old male resting in bed in no acute distress SKIN: Warm and dry. Abrasions over right forehead. HEAD: Head wrapped in Kerlix status post craniotomy. THANG -125 SS EYES: Pupils equal and round around 2-3 mm bilaterally and reactive. No scleral icterus. No injection or drainage. ENT: No nasal bleeding or discharge. Mucous membranes pink and moist. NECK: Trachea midline. No JVD. CARDIOVASCULAR: Bradycardic, RR. S1, S2. No S4. Without murmur RESPIRATORY: No accessory muscle use. Clear to auscultation. Breath sounds equal bilaterally. GASTROINTESTINAL: Abdomen soft, non-tender, nondistended. Hypoactive bowel sounds appreciated MUSCULOSKELETAL: Extremities with trace lower extremity edema. 5 NEUROLOGICAL: Awake and alert. No obvious cranial nerve deficits. Strength Right upper extremity 4-5. Right lower extremity 4 out of 5. Left lower extremity 4/5. Left upper extremity 5 out of 5 A/P Assessment and Plan Neuro/Psych: Postop day #1 Left frontal craniotomy, evacuation of subdural hematoma 1.8 cm left frontal hygroma with 7 mm fyjb-ka-mfysr shift C4/C5 anterolisthesis C 5/C6 retrolisthesis Anxiety disorder NOS History meningioma History of CVA Dry mouth Chronic benzodiazepine use Insomnia Postop day #0 for left frontal craniotomy with evacuation of left subdural hematomata by Dr. España CT brain on admission revealed 1.8 cm left frontal hygroma with a 7 mm left-to- right shift. Goal keep systolic blood pressure less than 160 Currently continuing alprazolam 0.5 milligrams every 6 hours when necessary On hydrocodone/acetaminophen 10/325 one to 2 tablets every 4 hours when necessary pain 1-10 Morphine sulfate 2-4 mg IV every 2 hours. Pain 1/10 Acetaminophen 650 mg every 4 hours when necessary fever Levetiracetam 500 mg IV twice a day seizure prophylaxis 7 days Holding temazepam 15 mg a night for insomnia Holding tramadol 50 mill grams every 6 hours Continue pilocarpine 5 mill grams every 6 hours for dry mouth CV: Hypertension Dyslipidemia Continue clonidine 0.1 mg twice a day, metoprolol 25 mg by mouth twice a day, amlodipine 10 mg daily lisinopril 5 mg daily for hypertension. 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 Resume when clinically indicated Endo: Hypothyroidism Sliding-scale insulin with Novulin N with Accu-Cheks before meals/at bedtime to maintain euglycemia/low regimen Continue levothyroxine 50 mcg by mouth daily. Check TSH - 1.3 Renal: Chronic kidney disease stage IIIa Monitor urine output Accurate I's and O's Currently on normal saline with KCl at 100 cc an hour per neurosurgery Heme: Normocytic anemia Leukocytosis Monitor CBC daily. Follow trends Does not meet transfusion thresholds at this time. ID: Monitor for infection Follow-up on UA MSK: Gait and balance disorder PT/OT evaluate and treat FEN: Hyper-magnesium Replace electrolytes as clinically indicated Access - utilize peripheral IV. Central line if indicated Prophylaxis - GI - pantoprazole - DVT - SCD/pharmacological prophylaxis when okay with neurosurgery Level II follow-up Alexander Macias MD Apr 17, 2017 06:19
[2017-04-17 07:03] LABS: AUTOMATED NEUTROPHIL # 10.8 TH/MM3 (1.8-7.7); BASOPHIL % 0.1 % (0.0-2.0); HEMATOCRIT 33.8 % (35.0-46.0); HEMOGLOBIN 10.8 GM/DL (11.6-15.3); LYMPH % 7.4 % (9.0-44.0); LYMPHOCYTE # 0.9 TH/MM3 (1.0-4.8); MEAN CELL VOLUME 89.5 FL (80.0-100.0); MEAN CORPUSCULAR HEMOGLOBIN 28.5 PG (27.0-34.0); MEAN CORPUSCULAR HGB CONC 31.9 % (32.0-36.0); MEAN PLATELET VOLUME 8.5 FL (7.0-11.0); MONO % 2.5 % (0.0-8.0); MONOCYTE # 0.3 TH/MM3 (0-0.9); PLATELET COUNT 179 TH/MM3 (150-450); RED BLOOD COUNT 3.78 MIL/MM3 (4.00-5.30); RED CELL DISTRIBUTION WIDTH 14.6 % (11.6-17.2); WHITE BLOOD COUNT 11.9 TH/MM3 (4.0-11.0)
[2017-04-17] MEDS: INSULIN NovoLIN REGULAR SUPPLEMENTAL SCALE SQ SCH ×4 (07:55→21:00)
[2017-04-17] MEDS ORDERED: PANTOPRAZOLE SODIUM 40 MG VIAL IVP SCH (09:00)
[2017-04-17] MEDS ORDERED: PANTOPRAZOLE SOD 20 MG DELAYED RELEASE TAB PO SCH (09:00)
[2017-04-17] MEDS: cloNIDine HCL 0.1 MG TAB PO SCH ×2 (09:18→20:44)
[2017-04-17] MEDS: MULTIVITAMIN TAB PO SCH (09:18)
[2017-04-17] MEDS: PANTOPRAZOLE SOD 40 MG DELAYED RELEASE TAB PO SCH (09:18)
[2017-04-17] MEDS: DOCUSATE SODIUM 100 MG CAP PO SCH ×2 (09:18→20:44)
[2017-04-17] MEDS: METOPROLOL TARTRATE 25 MG TAB PO SCH ×2 (09:18→20:44)
[2017-04-17] MEDS: LISINOPRIL 5 MG TAB PO SCH (09:18)
[2017-04-17] MEDS: SODIUM CHLORIDE 0.9% FLUSH 10 ML FLUSH IV FLUSH SCH ×2 (09:19→20:44)
[2017-04-17] MEDS: ARTIFICIAL TEARS OPTH SOLN 15 ML BTL EACH EYE SCH ×3 (09:19→17:16)
--- NOTE | 2017-04-17 13:41 | HHI.NSPN ---
(Bonny Salmon) Note Status Status: Progress Note (Bonny Salmon) Interval History Interval History 04/17: s/p left frontal craniotomy for evac of SDH 04/16/17. currently doing well , she appears more awake, surgical pain controlled. no new neurological complaints (Bonny Salmon) Labs, Micro, & Vital Signs Results Date Time Temp Pulse Resp B/P (MAP) Pulse Ox O2 Delivery O2 Flow Rate FiO2 04/17/17 12:00 98.4 60 14 167/70 (102) 97 04/17/17 08:00 98.2 62 17 157/67 (97) 93 04/17/17 07:00 Room Air 04/17/17 04:30 16 04/17/17 04:00 97.8 63 16 148/70 (96) 92 04/17/17 00:00 97.7 70 13 152/69 (96) 94 04/16/17 20:00 97.6 62 16 132/67 (88) 97 04/16/17 19:52 97 Nasal Cannula 1.00 04/16/17 18:45 62 16 148/68 (94) 99 Nasal Cannula 2 04/16/17 18:35 64 16 162/64 (96) 99 Nasal Cannula 2 04/16/17 18:28 63 16 147/62 (90) 99 Nasal Cannula 2 04/16/17 18:20 62 16 151/67 (95) 99 Nasal Cannula 2 04/16/17 18:11 97.5 65 16 170/72 (104) 99 Nasal Cannula 2 04/16/17 16:27 49 18 181/84 (116) 96 Nasal Cannula 2.00 04/16/17 14:58 49 16 179/76 (110) 98 Nasal Cannula 2.00 04/16/17 14:05 52 18 173/71 (105) 95 Room Air 04/16/17 14:05 51 18 173/71 (105) 96 Room Air Constitutional Vital Signs Date Time Temp Pulse Resp B/P (MAP) Pulse Ox O2 Delivery O2 Flow Rate FiO2 04/17/17 12:00 98.4 60 14 167/70 (102) 97 04/17/17 08:00 98.2 62 17 157/67 (97) 93 04/17/17 07:00 Room Air 04/17/17 04:30 16 04/17/17 04:00 97.8 63 16 148/70 (96) 92 04/17/17 00:00 97.7 70 13 152/69 (96) 94 04/16/17 20:00 97.6 62 16 132/67 (88) 97 04/16/17 19:52 97 Nasal Cannula 1.00 04/16/17 18:45 62 16 148/68 (94) 99 Nasal Cannula 2 04/16/17 18:35 64 16 162/64 (96) 99 Nasal Cannula 2 04/16/17 18:28 63 16 147/62 (90) 99 Nasal Cannula 2 04/16/17 18:20 62 16 151/67 (95) 99 Nasal Cannula 2 04/16/17 18:11 97.5 65 16 170/72 (104) 99 Nasal Cannula 2 04/16/17 16:27 49 18 181/84 (116) 96 Nasal Cannula 2.00 04/16/17 14:58 49 16 179/76 (110) 98 Nasal Cannula 2.00 04/16/17 14:05 52 18 173/71 (105) 95 Room Air 04/16/17 14:05 51 18 173/71 (105) 96 Room Air (Bonny Salmon) Review of Systems Constitutional: DENIES: Fever Neurologic: COMPLAINS OF: Abnormal gait, Headache (better), Poor Balance (Bonny Salmon) Physical Exam Alert, mildly confused but conversing. follows commands pupils equal, facial motor symmetric Moves all four extremities, mild right lower extremity paresis Wound clean and dry, karoline intact Left THANG drain intact with moderate serosanguineous drainage (Bonny Salmon) Medications Current Medications Current Medications Medications (Trade) Dose Ordered Sig/Felice Route PRN Reason Start Time Stop Time Status Last Admin Dose Admin Alprazolam (Xanax) 0.5 mg Q6H PRN PO ANXIETY 04/16/17 16:00 04/16/17 20:10 Amlodipine Besylate (Norvasc) 10 mg DAILY PO 04/17/17 09:00 04/17/17 09:18 Atorvastatin Calcium (Lipitor) 20 mg HS PO 04/16/17 21:00 04/16/17 20:11 Clonidine (Catapres) 0.1 mg BID PO 04/16/17 21:00 04/17/17 09:18 Levothyroxine Sodium (Synthroid) 50 mcg DAILY@0600 PO 04/17/17 06:00 04/17/17 06:09 Lisinopril (Prinivil) 5 mg DAILY PO 04/17/17 09:00 04/17/17 09:18 Metoprolol Tartrate (Lopressor) 25 mg BID PO 04/16/17 21:00 04/17/17 09:18 Pilocarpine (Salagen) 5 mg Q6HR PO 04/16/17 18:00 04/17/17 12:53 Multivitamins (Theragran) 1 tab DAILY PO 04/17/17 09:00 04/17/17 09:18 Sodium Chloride (NS Flush) 2 ml UNSCH PRN IV FLUSH FLUSH AFTER USING IV ACCESS 04/16/17 16:00 Sodium Chloride (NS Flush) 2 ml BID IV FLUSH 04/16/17 21:00 04/17/17 09:19 Artificial Tears (Tears Naturale Opth Soln) 1 drop TID EACH EYE 04/16/17 18:00 04/17/17 12:53 Albuterol Sulfate (Albuterol Neb) 2.5 mg Q2HR NEB PRN INH SOB/WHEEZING 04/16/17 16:00 Miscellaneous Information 1 Q361D XX 04/16/17 16:00 Chlorhexidine Gluconate (Chlorhexidine 2% Cloth) 3 pack Taper DAILY@04 TOP 04/17/17 04:00 04/13/18 03:59 04/17/17 03:42 Chlorhexidine Gluconate (Chlorhexidine 2% Cloth) 3 pack UNSCH PRN TOP HYGIENIC CARE 04/16/17 16:00 Magnesium Hydroxide (Milk Of Magnesia Liq) 30 ml Q12H PRN PO Mild constipation 04/16/17 16:00 Sennosides (Senokot) 17.2 mg Q12H PRN PO Moderate constipation 04/16/17 16:00 Bisacodyl (Dulcolax Supp) 10 mg DAILY PRN RECTAL SEVERE CONSITIPATION 04/16/17 16:00 Lactulose (Lactulose Liq) 30 ml DAILY PRN PO SEVERE CONSITIPATION 04/16/17 16:00 Potassium Chloride/Sodium Chloride 1,000 ml @ 100 mls/hr Q10H IV 04/16/17 18:04 04/17/17 06:08 Levetriacetam 500 mg/Sodium Chloride 105 ml @ 400 mls/hr Q12H IV 04/16/17 18:00 04/17/17 06:09 Docusate Sodium (Colace) 100 mg BID PO 04/16/17 21:00 04/17/17 09:18 Pantoprazole Sodium (Protonix) 40 mg DAILY PO 04/17/17 09:00 04/17/17 09:18 Ondansetron HCl (Zofran Inj) 4 mg Q6H PRN IV PUSH NAUSEA OR VOMITING 04/16/17 18:15 Calcium Gluconate (Calcium Gluconate Inj) 1 gm UNSCH PRN IV SEE LABEL COMMENTS 04/16/17 18:15 Potassium Chloride 100 ml @ 50 mls/hr UNSCH PRN IV POTASSIUM LESS THAN 4 04/16/17 18:15 Magnesium Sulfate 4 gm/Sodium Chloride 108 ml @ 108 mls/hr UNSCH PRN IV MAGNESIUM LESS THAN 2 04/16/17 18:15 Acetaminophen/ Hydrocodone Bitart ([place] 10-325 Mg) 1 tab Q4H PRN PO PAIN SCALE 1 TO 5 04/16/17 18:15 04/17/17 03:30 Acetaminophen/ Hydrocodone Bitart ([place] 10-325 Mg) 2 tab Q4H PRN PO PAIN SCALE 6 TO 10 04/16/17 18:15 Morphine Sulfate (Morphine Inj) 2 mg Q2H PRN IV PAIN 1-6 04/16/17 18:15 04/16/17 23:38 Morphine Sulfate (Morphine Inj) 4 mg Q2H PRN IV PAIN 7-10 04/16/17 18:15 Acetaminophen (Tylenol) 650 mg Q4H PRN PO TEMPERATURE > 101.5 F 04/16/17 18:15 Dextrose (D50w (Vial) Inj) 50 ml UNSCH PRN IV PUSH HYPOGLYCEMIA-SEE COMMENTS 04/16/17 18:30 Glucagon (Glucagon Inj) 1 mg UNSCH PRN OTHER HYPOGLYCEMIA-SEE COMMENTS 04/16/17 18:30 Insulin Human Regular (NovoLIN R SUPPLEMENTAL SCALE) 1 ACHS SLIDING SCALE SQ 04/16/17 21:00 Labetalol HCl (Trandate Inj) 10 mg Q1HR PRN IV PUSH SBP>160, DBP>90, HR>65 04/16/17 19:00 04/16/17 23:40 Hydralazine HCl (Apresoline Inj) 10 mg Q1HR PRN IV PUSH SBP>160, DBP>90 04/16/17 19:00 04/16/17 23:39 Miscellaneous Information ALL NURSING DEPARTME... UNSCH PRN .XX SEE LABEL COMMENTS 04/16/17 18:14 04/17/17 18:13 (Bonny Salmon) Medical Decision Making MDM Remarks 77 y/o female with acute on chronic subdural hematoma s/p left frontal craniotomy evac of SDH 04/16/17 (Bonny Salmon) Plan Plan Remarks cont neuro checks in [facility] PT, start mobilize OOB cont nonchemical dvt prophylaxis in view of ICH Protonix for stress ulcer proph critical care management (Bonny Salmon) Attending Statement The exam, history, and the medical decision-making described in the above note were completed with the assistance of the mid-level provider. I reviewed and agree with the findings presented. I attest that I had a [id number] encounter with the patient on the same day, and personally performed and documented my assessment and findings in the medical record. (Matti España MD) Bonny Salmon Apr 17, 2017 13:41 Matti España MD Apr 20, 2017 10:27
--- NOTE | 2017-04-17 16:16 | ECHRPT ---
Indication: HEART FAILURE CONCLUSIONS Normal left ventricular size. Mild concentric left ventricular hypertrophy. The left ventricular systolic function is low normal with an estimated ejection fraction in the rang e of 50- 55%. Trace mitral valve regurgitation. Mild aortic valve regurgitation. There is mild to moderate tricuspid valve regurgitation. The estimated pulmonary arterial pressure is 40.8 mmHg. There is a trivial pericardial effusion present. BP: 148 / 70 HR: 63 Rhythm: MEASUREMENTS (Male / Female) Normal Values Technical Quality:Good 2D ECHO LV Diastolic Diameter PLAX 4.6 cm 4.2 - 5.9 / 3.9 - 5.3 cm LV Systolic Diameter PLAX 3.6 cm IVS Diastolic Thickness 1.6 cm 0.6 - 1.0 / 0.6 - 0.9 cm LVPW Diastolic Thickness 0.6 cm 0.6 - 1.0 / 0.6 - 0.9 cm LV Relative Wall Thickness 0.5 RV Internal Dim ED PLAX 2.0 cm LA Systolic Diameter LX 3.4 cm 3.0 - 4.0 / 2.7 - 3.8 cm M-MODE Aortic Root Diameter MM 3.0 cm AV Cusp Separation MM 1.8 cm DOPPLER Mitral E Point Velocity 84.9 cm/s Mitral A Point Velocity 73.5 cm/s Mitral E to A Ratio 1.2 TR Peak Velocity 299.0 cm/s TR Peak Gradient 35.8 mmHg Right Atrial Pressure 5.0 mmHg Pulmonary Artery Systolic Pressu 40.8 mmHg Right Ventricular Systolic Press 40.8 mmHg FINDINGS LEFT VENTRICLE Normal left ventricular size. Mild concentric left ventricular hypertrophy. The left ventricular systolic function is low normal with an estimated ejection fraction in the rang e of 50- 55%. RIGHT VENTRICLE Normal right ventricular size and systolic function. LEFT ATRIUM The left atrial size is normal. RIGHT ATRIUM The right atrial size is normal. ATRIAL SEPTUM Normal atrial septal thickness without atrial level shunting by limited color doppler interrogation. AORTA The aortic root and proximal ascending aorta are normal in size on limited imaging. MITRAL VALVE Trace mitral valve regurgitation. AORTIC VALVE Mild aortic valve regurgitation. TRICUSPID VALVE There is mild to moderate tricuspid valve regurgitation. The estimated pulmonary arterial pressure is 40.8 mmHg. PULMONARY VALVE No pulmonary valve regurgitation or stenosis. VESSELS The inferior vena cava is normal in size. PERICARDIUM There is a trivial pericardial effusion present. Adria Gallardo MD (Electronically Signed) Final Date:17 April 2017 16:15
[2017-04-17] MEDS: ALPRAZolam 0.5 MG TAB PO PRN ×2 (16:29→23:06)
[2017-04-17] MEDS: hydrALAZINE HCL 20 MG/ML VIAL IV PUSH PRN ×2 (17:23→23:38)
[2017-04-17] MEDS: ATORVASTATIN 20 MG TAB PO SCH (20:44)
[2017-04-18] VITALS (9 sets, daily range): BP systolic 156–182; BP diastolic 69–74; PULSE 66–78; RESP 15–22; TEMP 98.2–98.6; O2SAT 94–95
[2017-04-18] MEDS: ACETAMINOPHEN/HYDROcodone 325 MG/10 MG TAB PO PRN ×3 (00:08→18:39)
[2017-04-18] MEDS: LABETALOL HCL 100 MG/20 ML VIAL IV PUSH PRN ×2 (01:32→03:12)
[2017-04-18] MEDS: CHLORHEXIDINE GLUCONATE 2 % 1 PACK (2 CLOTHS) TOP SCH ×2 (03:10→23:58)
[2017-04-18] MEDS: PILOCARPINE HCL 5 MG TAB PO SCH ×3 (05:25→18:00)
[2017-04-18] MEDS: levETIRAcetam INJ 500 MG in SODIUM CHLORIDE 0.9% INJ 100 ML IV SCH ×2 (05:25→18:00)
--- NOTE | 2017-04-18 06:18 | EKG ---
Date Performed: 04/16/2017 Time Performed: 14:43:56 PTAGE: 77 years EKG: SINUS BRADYCARDIA PROLONGED QT INTERVAL ABNORMAL ECG Compared to PREVIOUS TRACING , there has been resolution of the inferior lateral ST segment changes. PREVIOUS TRACIN09/05/2014 14.54 DOCTOR: Samina Quinteros Interpretating Date/Time 04/18/2017 06:16:13
[2017-04-18] MEDS: LEVOTHYROXINE SODIUM 50 MCG TAB PO SCH (07:12)
[2017-04-18] MEDS: INSULIN NovoLIN REGULAR SUPPLEMENTAL SCALE SQ SCH ×4 (08:00→21:50)
[2017-04-18] MEDS: DOCUSATE SODIUM 100 MG CAP PO SCH ×2 (08:40→20:25)
[2017-04-18] MEDS: ALPRAZolam 0.5 MG TAB PO PRN ×2 (08:40→18:39)
[2017-04-18] MEDS: PANTOPRAZOLE SOD 40 MG DELAYED RELEASE TAB PO SCH (08:40)
[2017-04-18] MEDS: METOPROLOL TARTRATE 25 MG TAB PO SCH ×2 (08:40→20:24)
[2017-04-18] MEDS: cloNIDine HCL 0.1 MG TAB PO SCH (08:40)
[2017-04-18] MEDS: MULTIVITAMIN TAB PO SCH (08:40)
[2017-04-18] MEDS: LISINOPRIL 5 MG TAB PO SCH ×2 (08:40→20:25)
[2017-04-18] MEDS: SODIUM CHLORIDE 0.9% FLUSH 10 ML FLUSH IV FLUSH SCH ×2 (08:41→20:25)
[2017-04-18] MEDS: NS + KCL 20 MEQ INJ 1,000 ML IV SCH (08:41)
[2017-04-18] MEDS: ARTIFICIAL TEARS OPTH SOLN 15 ML BTL EACH EYE SCH (08:41)
[2017-04-18] MEDS: cloNIDine HCL 0.2 MG TAB PO SCH ×2 (09:46→20:24)
--- NOTE | 2017-04-18 09:53 | HHI.NSPN ---
(Bonny Salmon) Note Status Status: Progress Note (Bonny Salmon) Interval History Interval History 04/17: s/p left frontal craniotomy for evac of SDH 04/16/17. currently doing well , she appears more awake, surgical pain controlled. no new neurological complaints 04/18: headaches much better today, very eager to go home. blood pressure still elevated - being managed per critical care. reports increased strength right side (Bonny Salmon) Labs, Micro, & Vital Signs Results Date Time Temp Pulse Resp B/P (MAP) Pulse Ox O2 Delivery O2 Flow Rate FiO2 04/18/17 07:00 92 Room Air 04/18/17 06:00 68 04/18/17 04:00 71 04/18/17 04:00 71 16 162/69 (100) 94 04/18/17 02:00 74 04/18/17 00:00 75 22 164/70 (101) 94 04/18/17 00:00 75 04/17/17 22:00 76 04/17/17 21:58 95 21 04/17/17 21:33 90 Nasal Cannula 2.00 04/17/17 20:00 97.9 63 16 161/67 (98) 94 04/17/17 20:00 63 04/17/17 19:00 94 Room Air 04/17/17 16:00 98.2 56 18 165/70 (101) 93 04/17/17 12:00 98.4 60 14 167/70 (102) 97 Constitutional Vital Signs Date Time Temp Pulse Resp B/P (MAP) Pulse Ox O2 Delivery O2 Flow Rate FiO2 04/18/17 07:00 92 Room Air 04/18/17 06:00 68 04/18/17 04:00 71 04/18/17 04:00 71 16 162/69 (100) 94 04/18/17 02:00 74 04/18/17 00:00 75 22 164/70 (101) 94 04/18/17 00:00 75 04/17/17 22:00 76 04/17/17 21:58 95 21 04/17/17 21:33 90 Nasal Cannula 2.00 04/17/17 20:00 97.9 63 16 161/67 (98) 94 04/17/17 20:00 63 04/17/17 19:00 94 Room Air 04/17/17 16:00 98.2 56 18 165/70 (101) 93 04/17/17 12:00 98.4 60 14 167/70 (102) 97 (Bonny Salmon) Physical Exam Alert and oriented, conversing well. follows commands well pupils equal, facial motor symmetric Moves all four extremities, mild right lower extremity paresis 4/5 Wound clean and dry, karoline intact Left THANG drain intact serosanguineous drainage (Bonny Salmon) Medications Current Medications Current Medications Medications (Trade) Dose Ordered Sig/Felice Route PRN Reason Start Time Stop Time Status Last Admin Dose Admin Alprazolam (Xanax) 0.5 mg Q6H PRN PO ANXIETY 04/16/17 16:00 04/18/17 08:40 Amlodipine Besylate (Norvasc) 10 mg DAILY PO 04/17/17 09:00 04/18/17 08:40 Atorvastatin Calcium (Lipitor) 20 mg HS PO 04/16/17 21:00 04/17/17 20:44 Levothyroxine Sodium (Synthroid) 50 mcg DAILY@0600 PO 04/17/17 06:00 04/18/17 07:12 Metoprolol Tartrate (Lopressor) 25 mg BID PO 04/16/17 21:00 04/18/17 08:40 Pilocarpine (Salagen) 5 mg Q6HR PO 04/16/17 18:00 04/18/17 05:25 Multivitamins (Theragran) 1 tab DAILY PO 04/17/17 09:00 04/18/17 08:40 Sodium Chloride (NS Flush) 2 ml UNSCH PRN IV FLUSH FLUSH AFTER USING IV ACCESS 04/16/17 16:00 Sodium Chloride (NS Flush) 2 ml BID IV FLUSH 04/16/17 21:00 04/18/17 08:41 Artificial Tears (Tears Naturale Opth Soln) 1 drop TID EACH EYE 04/16/17 18:00 04/18/17 08:41 Albuterol Sulfate (Albuterol Neb) 2.5 mg Q2HR NEB PRN INH SOB/WHEEZING 04/16/17 16:00 Miscellaneous Information 1 Q361D XX 04/16/17 16:00 Chlorhexidine Gluconate (Chlorhexidine 2% Cloth) 3 pack Taper DAILY@04 TOP 04/17/17 04:00 04/13/18 03:59 04/17/17 03:42 Chlorhexidine Gluconate (Chlorhexidine 2% Cloth) 3 pack UNSCH PRN TOP HYGIENIC CARE 04/16/17 16:00 Magnesium Hydroxide (Milk Of Magnesia Liq) 30 ml Q12H PRN PO Mild constipation 04/16/17 16:00 Sennosides (Senokot) 17.2 mg Q12H PRN PO Moderate constipation 04/16/17 16:00 Bisacodyl (Dulcolax Supp) 10 mg DAILY PRN RECTAL SEVERE CONSITIPATION 04/16/17 16:00 Lactulose (Lactulose Liq) 30 ml DAILY PRN PO SEVERE CONSITIPATION 04/16/17 16:00 Potassium Chloride/Sodium Chloride 1,000 ml @ 100 mls/hr Q10H IV 04/16/17 18:04 04/17/17 20:45 Levetriacetam 500 mg/Sodium Chloride 105 ml @ 400 mls/hr Q12H IV 04/16/17 18:00 04/18/17 05:25 Docusate Sodium (Colace) 100 mg BID PO 04/16/17 21:00 04/18/17 08:40 Pantoprazole Sodium (Protonix) 40 mg DAILY PO 04/17/17 09:00 04/18/17 08:40 Ondansetron HCl (Zofran Inj) 4 mg Q6H PRN IV PUSH NAUSEA OR VOMITING 04/16/17 18:15 Calcium Gluconate (Calcium Gluconate Inj) 1 gm UNSCH PRN IV SEE LABEL COMMENTS 04/16/17 18:15 Potassium Chloride 100 ml @ 50 mls/hr UNSCH PRN IV POTASSIUM LESS THAN 4 04/16/17 18:15 Magnesium Sulfate 4 gm/Sodium Chloride 108 ml @ 108 mls/hr UNSCH PRN IV MAGNESIUM LESS THAN 2 04/16/17 18:15 Acetaminophen/ Hydrocodone Bitart ([place] 10-325 Mg) 1 tab Q4H PRN PO PAIN SCALE 1 TO 5 04/16/17 18:15 04/17/17 03:30 Acetaminophen/ Hydrocodone Bitart ([place] 10-325 Mg) 2 tab Q4H PRN PO PAIN SCALE 6 TO 10 04/16/17 18:15 04/18/17 08:40 Morphine Sulfate (Morphine Inj) 2 mg Q2H PRN IV PAIN 1-6 04/16/17 18:15 04/16/17 23:38 Morphine Sulfate (Morphine Inj) 4 mg Q2H PRN IV PAIN 7-10 04/16/17 18:15 Acetaminophen (Tylenol) 650 mg Q4H PRN PO TEMPERATURE > 101.5 F 04/16/17 18:15 Dextrose (D50w (Vial) Inj) 50 ml UNSCH PRN IV PUSH HYPOGLYCEMIA-SEE COMMENTS 04/16/17 18:30 Glucagon (Glucagon Inj) 1 mg UNSCH PRN OTHER HYPOGLYCEMIA-SEE COMMENTS 04/16/17 18:30 Insulin Human Regular (NovoLIN R SUPPLEMENTAL SCALE) 1 ACHS SLIDING SCALE SQ 04/16/17 21:00 Labetalol HCl (Trandate Inj) 10 mg Q1HR PRN IV PUSH SBP>160, DBP>90, HR>65 04/16/17 19:00 04/18/17 03:12 Hydralazine HCl (Apresoline Inj) 10 mg Q1HR PRN IV PUSH SBP>160, DBP>90 04/16/17 19:00 04/17/17 23:38 Clonidine (Catapres) 0.2 mg BID PO 04/18/17 09:00 04/18/17 09:46 Lisinopril (Prinivil) 5 mg BID PO 04/18/17 21:00 (Bonny Salmon) Medical Decision Making MDM Remarks 77 y/o female with acute on chronic subdural hematoma s/p left frontal craniotomy evac of SDH 04/16/17 (Bonny Salmon) Plan Plan Remarks for f/u CT head, cont PT mobilize OOB cont nonchemical dvt prophylaxis in view of ICH Protonix for stress ulcer proph ok NRS to transfer out of [facility] to 5N f/u CT Head completed and reviewed with near resolution of SDH, returned and removed THANG drain, steri-strips placed. (Bonny Salmon) Attending Statement The exam, history, and the medical decision-making described in the above note were completed with the assistance of the mid-level provider. I reviewed and agree with the findings presented. I attest that I had a [id number] encounter with the patient on the same day, and personally performed and documented my assessment and findings in the medical record. (Matti España MD) Bonny Salmon Apr 18, 2017 09:53 Matti España MD Apr 20, 2017 10:40
--- NOTE | 2017-04-18 11:06 | HHI.CCPN ---
Subjective Remarks/Hospital Course This is a 77-year-old female. Date of admission 04/16/2017. Past medical history includes anxiety, prior CVA, known meningioma, hypertension, disc edema, hypothyroidism, gastroesophageal reflux disease, hormone replacement therapy, chronic kidney disease stage IIIa, history of aVR, history of thoracic aortic aneurysm repaired 2006. Dyslipidemia [facility] yesterday status post fall which is diagnosed with a "brain bleed". She left the facility. She had another mechanical fall today presented to [facility] for further evaluation treatment. This revealed a 1.8 cm left subdural hygroma. Components with a 7 mm [id number] shift. Due to these findings, neurosurgery consultation recommended evacuation which was performed on 04/16. Patient focal weakness in the right lower greater than left lower extremity. Positive headache. Visible trauma to the right forehead. Patient is not on any systemic blood thinners however is on aspirin 81 mg daily. 04/17: Afebrile. Resting comfortably in bed in no acute distress. No seizure activity. No change in mental status. Subjective 04/18: Afebrile. Resting comfortably in bed in no acute distress. No seizure activity. No change in mental status. Desires to go home. Objective Vital Signs Date Time Temp Pulse Resp B/P (MAP) Pulse Ox O2 Delivery O2 Flow Rate FiO2 04/18/17 10:00 70 04/18/17 08:00 98.2 17 169/70 (103) 95 04/18/17 07:00 Room Air 04/17/17 21:58 21 04/17/17 21:33 2.00 Intake and Output 04/18/17 04/18/17 04/19/17 08:00 16:00 00:00 Intake Total 1164 ml Output Total 50 ml Balance 1114 ml Result Diagram: 04/17/17 0631 04/17/17 0354 Imaging Last Impressions Chest X-Ray 04/16/17 1326 Signed Impressions: Service Date/Time: Sunday, April 16, 2017 13:59 - CONCLUSION: 1. Minimal left lower lung zone airspace disease, likely atelectasis. Kaiden Shields MD Head CT 04/16/17 0000 Signed Impressions: Service Date/Time: Sunday, April 16, 2017 13:22 - CONCLUSION: 1.8 cm left subdural hygroma. Acute blood products there is well. 7 mm left to right shift. Benito Dai MD FACR Cervical Spine CT 04/16/17 0000 Signed Impressions: Service Date/Time: Sunday, April 16, 2017 13:22 - CONCLUSION: Degenerative changes. Degenerative retrolisthesis C5 on C6 and anterolisthesis C4 on 5. No fracture. Ramiro Romeo MD Objective Remarks GENERAL: 77-year-old male resting in bed in no acute distress SKIN: Warm and dry. Abrasions over right forehead. HEAD: Head wrapped in Kerlix status post craniotomy. THANG -140 SS EYES: Pupils equal and round around 2-3 mm bilaterally and reactive. No scleral icterus. No injection or drainage. ENT: No nasal bleeding or discharge. Mucous membranes pink and moist. NECK: Trachea midline. No JVD. CARDIOVASCULAR: Bradycardic, RR. S1, S2. No S4. Without murmur RESPIRATORY: No accessory muscle use. Clear to auscultation. Breath sounds equal bilaterally. GASTROINTESTINAL: Abdomen soft, non-tender, nondistended. Hypoactive bowel sounds appreciated MUSCULOSKELETAL: Extremities with trace lower extremity edema. 5 NEUROLOGICAL: Awake and alert. No obvious cranial nerve deficits. Strength Right upper extremity 4-5. Right lower extremity 4 out of 5. Left lower extremity 4/5. Left upper extremity 5 out of 5 A/P Assessment and Plan Neuro/Psych: Postop day #2 Left frontal craniotomy, evacuation of subdural hematoma 1.8 cm left frontal hygroma with 7 mm [id number] shift C4/C5 anterolisthesis C 5/C6 retrolisthesis Anxiety disorder NOS History meningioma History of CVA Dry mouth Chronic benzodiazepine use Insomnia Postop day #0 for left frontal craniotomy with evacuation of left subdural hematomata by Dr. España CT brain on admission revealed 1.8 cm left frontal hygroma with a 7 mm left-to- right shift. Goal keep systolic blood pressure less than 160 Currently continuing alprazolam 0.5 milligrams every 6 hours when necessary On hydrocodone/acetaminophen 10/325 one to 2 tablets every 4 hours when necessary pain 1-10 Morphine sulfate 2-4 mg IV every 2 hours. Pain 1/10 Acetaminophen 650 mg every 4 hours when necessary fever Levetiracetam 500 mg IV twice a day seizure prophylaxis 7 days Holding temazepam 15 mg a night for insomnia Holding tramadol 50 mill grams every 6 hours Continue pilocarpine 5 mill grams every 6 hours for dry mouth CV: Hypertension Dyslipidemia Continue clonidine 0.1 mg twice a day but increased to 0.2 mg twice daily, metoprolol 25 mg by mouth twice a day, amlodipine 10 mg daily lisinopril 5 mg daily for hypertension increased to 5 mg twice a day. Continue atorvastatin 20 mg daily for dyslipidemia As needed labetalol and hydralazine to keep systolic blood pressure less than 160 Holding aspirin 81 mg daily light of subdural hematoma as above Echo - Normal left ventricular size. Mild concentric left ventricular hypertrophy. The left ventricular systolic function is low normal with an estimated ejection fraction in the range of 50-55%. Trace mitral valve regurgitation. Mild aortic valve regurgitation. There is mild to moderate tricuspid valve regurgitation. The estimated pulmonary arterial pressure is 40.8 mmHg. There is a trivial pericardial effusion present. Resp: Nasal cannula to maintain saturations greater than equal to 92% Incentive spirometry while awake Chest x-ray admission revealed left lower lobe atelectasis GI: Gastroesophageal reflux disease Regular diet Continue omeprazole 20 mg daily/home medication substitution pantoprazole 40 mg daily Docusate sodium/100 mg twice a day for bowel regimen : No indication for Ortega catheter [employer]: Holding the estradiol 1 mg by mouth daily. Resume when clinically indicated Endo: Hypothyroidism Sliding-scale insulin with Novulin N with Accu-Cheks before meals/at bedtime to maintain euglycemia/low regimen Continue levothyroxine 50 mcg by mouth daily. Check TSH - 1.3 Renal: Chronic kidney disease stage IIIa Monitor urine output Accurate I's and O's Currently on normal saline with KCl at 50 cc an hour per neurosurgery Heme: Normocytic anemia Leukocytosis Monitor CBC daily. Follow trends Does not meet transfusion thresholds at this time. ID: Monitor for infection Follow-up on UA MSK: Gait and balance disorder PT/OT evaluate and treat FEN: Hyper-magnesium Replace electrolytes as clinically indicated Access - utilize peripheral IV. Central line if indicated Prophylaxis - GI - pantoprazole - DVT - SCD/pharmacological prophylaxis when okay with neurosurgery Level II follow-up. Patient is stable from a critical care medicine standpoint. Assign care to hospitalist in a.m. 04/19. Transfer to floor Alexander Macias MD Apr 18, 2017 11:06
--- NOTE | 2017-04-18 12:02 | RADRPT ---
EXAM DATE/TIME: 04/18/2017 11:38 [place] COMPARISON: CT BRAIN W/O CONTRAST, April 16, 2017, 13:22. INDICATIONS : Acute subdural hematoma. RADIATION DOSE: 35.23 CTDIvol (mGy) MEDICAL HISTORY : Cerebrovascular disease. Cardiovascular disease Hypertension. SURGICAL HISTORY : Abdominal aortic aneurysm repair. Appendectomy.Cholecystectomy.Left frontal craniotomy ENCOUNTER: Initial ACUITY: 3 days PAIN SCALE: Non-responsive LOCATION: cranial TECHNIQUE: Multiple contiguous axial images were obtained of the head. Using automated exposure control and adj ustment of the mA and/or kV according to patient size, radiation dose was kept as low as reasonably a chievable to obtain optimal diagnostic quality images. DICOM format image data is available electro nically for review and comparison. FINDINGS: There has been interval placement of a left frontal subdural drain. There is been near complete evacu ation of subdural fluid. Minimal residual subfalcine midline shift. No new acute findings are identif ied. CONCLUSION: Interval subdural drain placement with near complete evacuation of left subdural. Martin Altamirano MD on April 18, 2017 at 11:57 Board Certified Radiologist. This report was verified electronically.
[2017-04-18 12:56] LABS: HEMATOCRIT 32.2 % (35.0-46.0); HEMOGLOBIN 10.3 GM/DL (11.6-15.3); MEAN CELL VOLUME 88.4 FL (80.0-100.0); MEAN CORPUSCULAR HEMOGLOBIN 28.3 PG (27.0-34.0); MEAN PLATELET VOLUME 8.2 FL (7.0-11.0); PLATELET COUNT 183 TH/MM3 (150-450); RED BLOOD COUNT 3.65 MIL/MM3 (4.00-5.30); RED CELL DISTRIBUTION WIDTH 14.5 % (11.6-17.2); WHITE BLOOD COUNT 10.9 TH/MM3 (4.0-11.0)
[2017-04-18 13:17] LABS: BICARBONATE 26.6 MEQ/L (21.0-32.0); CALCIUM 8.3 MG/DL (8.5-10.1); CREATININE 0.87 MG/DL (0.50-1.00)
[2017-04-18] MEDS: ATORVASTATIN 20 MG TAB PO SCH (20:25)
[2017-04-19] VITALS: BP 195/81; PULSE 71; RESP 21; TEMP 98.3; O2SAT 95
[2017-04-19] MEDS: PILOCARPINE HCL 5 MG TAB PO SCH ×4 (00:03→17:38)
[2017-04-19] MEDS: ACETAMINOPHEN/HYDROcodone 325 MG/10 MG TAB PO PRN ×2 (00:08→04:38)
[2017-04-19] MEDS: hydrALAZINE HCL 20 MG/ML VIAL IV PUSH PRN ×3 (00:45→08:03)
[2017-04-19] MEDS: LABETALOL HCL 100 MG/20 ML VIAL IV PUSH PRN ×2 (02:30→08:29)
[2017-04-19] MEDS: ALPRAZolam 0.5 MG TAB PO PRN ×3 (03:20→20:56)
[2017-04-19 04:00] VITALS: BP 167/81; PULSE 74; PULSE 81; RESP 24; TEMP 98.2; O2SAT 96
[2017-04-19] MEDS: LEVOTHYROXINE SODIUM 50 MCG TAB PO SCH (04:38)
[2017-04-19] MEDS: levETIRAcetam INJ 500 MG in SODIUM CHLORIDE 0.9% INJ 100 ML IV SCH ×2 (04:39→18:00)
[2017-04-19] MEDS: NS + KCL 20 MEQ INJ 1,000 ML IV SCH (04:39)
[2017-04-19 06:07] LABS: BASOPHIL # 0.1 TH/MM3 (0-0.2); BASOPHIL % 0.5 % (0.0-2.0); HEMATOCRIT 34.2 % (35.0-46.0); HEMOGLOBIN 11.1 GM/DL (11.6-15.3); LYMPH % 14.1 % (9.0-44.0); LYMPHOCYTE # 1.7 TH/MM3 (1.0-4.8); MEAN CELL VOLUME 88.3 FL (80.0-100.0); MEAN CORPUSCULAR HEMOGLOBIN 28.7 PG (27.0-34.0); MEAN CORPUSCULAR HGB CONC 32.6 % (32.0-36.0); MEAN PLATELET VOLUME 8.3 FL (7.0-11.0); MONO % 9.6 % (0.0-8.0); MONOCYTE # 1.1 TH/MM3 (0-0.9); NEUT % 75.8 % (16.0-70.0); PLATELET COUNT 187 TH/MM3 (150-450); RED BLOOD COUNT 3.87 MIL/MM3 (4.00-5.30); RED CELL DISTRIBUTION WIDTH 14.5 % (11.6-17.2); WHITE BLOOD COUNT 11.9 TH/MM3 (4.0-11.0)
[2017-04-19 07:18] LABS: ALBUMIN 3.3 GM/DL (3.4-5.0); ALKALINE PHOSPHATASE 114 U/L (45-117); ALT (GPT) 15 U/L (10-53); AST (GOT) 27 U/L (15-37); BICARBONATE 24.9 MEQ/L (21.0-32.0); BLOOD UREA NITROGEN 8 MG/DL (7-18); CALCIUM 8.4 MG/DL (8.5-10.1); CHLORIDE 109 MEQ/L (98-107); CREATININE 0.77 MG/DL (0.50-1.00); GLOMERULAR FILTRATION RATE 73 ML/MIN (>89); GLUCOSE,RANDOM 141 MG/DL (74-106); MAGNESIUM 1.7 MG/DL (1.5-2.5); PHOSPHORUS 2.6 MG/DL (2.5-4.9); SODIUM (NA) 143 MEQ/L (136-145); TOTAL BILIRUBIN ADULT 0.4 MG/DL (0.2-1.0); TOTAL PROTEIN 6.6 GM/DL (6.4-8.2)
[2017-04-19 08:00] VITALS: BP 210/89; PULSE 84; RESP 16; TEMP 98.2; O2SAT 95
[2017-04-19] MEDS: INSULIN NovoLIN REGULAR SUPPLEMENTAL SCALE SQ SCH ×4 (08:00→20:56)
[2017-04-19] MEDS: SODIUM CHLORIDE 0.9% FLUSH 10 ML FLUSH IV FLUSH SCH ×2 (08:02→20:56)
[2017-04-19] MEDS: MULTIVITAMIN TAB PO SCH (08:03)
[2017-04-19] MEDS: PANTOPRAZOLE SOD 40 MG DELAYED RELEASE TAB PO SCH (08:03)
[2017-04-19] MEDS: LISINOPRIL 5 MG TAB PO SCH (08:03)
[2017-04-19] MEDS: cloNIDine HCL 0.2 MG TAB PO SCH (08:03)
[2017-04-19] MEDS: METOPROLOL TARTRATE 25 MG TAB PO SCH (08:03)
[2017-04-19] MEDS: DOCUSATE SODIUM 100 MG CAP PO SCH ×2 (08:04→20:56)
[2017-04-19] MEDS ORDERED: POTASSIUM PHOSPHATE MONOBASIC 500 MG TAB PO/TUBE PRN (09:30)
[2017-04-19] MEDS ORDERED: POTASSIUM PHOSPHATE INJ 30 MMOL in SODIUM CHLOR 0.9% 250 ML INJ 250 ML IV PRN (09:30)
[2017-04-19] MEDS ORDERED: MAGNESIUM SULFATE INJ 4 GM in SODIUM CHLORIDE 0.9% INJ 92 ML IV PRN (09:30)
[2017-04-19] MEDS ORDERED: POTASSIUM CHLORIDE 25 MEQ EFFERVESCENT TAB PO PRN (09:30)
[2017-04-19] MEDS ORDERED: POTASSIUM PHOSPHATE MONOBASIC 500 MG TAB PO PRN (09:30)
[2017-04-19] MEDS ORDERED: POTASSIUM CHLOR 20 MEQ PREMIX 100 ML IV PRN ×2 (09:30)
[2017-04-19] MEDS ORDERED: MAGNESIUM SULFATE INJ 2 GM in SODIUM CHLORIDE 0.9% INJ 96 ML IV PRN (09:30)
[2017-04-19] MEDS ORDERED: MAGNESIUM OXIDE 400 MG TAB PO PRN (09:30)
[2017-04-19] MEDS ORDERED: SODIUM PHOSPHATE INJ 30 MMOL in SODIUM CHLOR 0.9% 250 ML INJ 240 ML IV PRN (09:30)
[2017-04-19] MEDS ORDERED: POTASSIUM CHLOR 40 MEQ PREMIX 100 ML IV PRN ×2 (09:30)
--- NOTE | 2017-04-19 09:30 | HHI.CCPN ---
Subjective Remarks/Hospital Course This is a 77-year-old female. Date of admission 04/16/2017. Past medical history includes anxiety, prior CVA, known meningioma, hypertension, disc edema, hypothyroidism, gastroesophageal reflux disease, hormone replacement therapy, chronic kidney disease stage IIIa, history of aVR, history of thoracic aortic aneurysm repaired 2006. Dyslipidemia [facility] yesterday status post fall which is diagnosed with a "brain bleed". She left the facility. She had another mechanical fall today presented to [facility] for further evaluation treatment. This revealed a 1.8 cm left subdural hygroma. Components with a 7 mm [id number] shift. Due to these findings, neurosurgery consultation recommended evacuation which was performed on 04/16. Patient focal weakness in the right lower greater than left lower extremity. Positive headache. Visible trauma to the right forehead. Patient is not on any systemic blood thinners however is on aspirin 81 mg daily. 04/17: Afebrile. Resting comfortably in bed in no acute distress. No seizure activity. No change in mental status. Subjective 04/18: Afebrile. Resting comfortably in bed in no acute distress. No seizure activity. No change in mental status. Desires to go home. 04/19: BP control problematic; will increase clonidine and lisinopril. Objective Vital Signs Date Time Temp Pulse Resp B/P (MAP) Pulse Ox O2 Delivery O2 Flow Rate FiO2 04/19/17 08:44 Nasal Cannula 04/19/17 07:05 20 04/19/17 04:00 98.2 74 167/81 (109) 96 04/17/17 21:58 21 04/17/17 21:33 2.00 Intake and Output 04/19/17 04/19/17 04/20/17 08:00 16:00 00:00 Intake Total 720 ml Balance 720 ml Result Diagram: 04/19/17 0523 04/19/17 0523 Imaging Last Impressions Chest X-Ray 04/16/17 1326 Signed Impressions: Service Date/Time: Sunday, April 16, 2017 13:59 - CONCLUSION: 1. Minimal left lower lung zone airspace disease, likely atelectasis. Kaiden Shields MD Head CT 04/16/17 0000 Signed Impressions: Service Date/Time: Sunday, April 16, 2017 13:22 - CONCLUSION: 1.8 cm left subdural hygroma. Acute blood products there is well. 7 mm left to right shift. Benito Dai MD FACR Cervical Spine CT 04/16/17 0000 Signed Impressions: Service Date/Time: Sunday, April 16, 2017 13:22 - CONCLUSION: Degenerative changes. Degenerative retrolisthesis C5 on C6 and anterolisthesis C4 on 5. No fracture. Ramiro Romeo MD Objective Remarks GENERAL: 77-year-old male resting in bed in no acute distress SKIN: Warm and dry. Abrasions over right forehead. HEAD: Head wrapped in Kerlix status post craniotomy. EYES: Pupils equal and round around 2 mm bilaterally and reactive. No scleral icterus. No injection or drainage. ENT: No nasal bleeding or discharge. Mucous membranes pink and moist. NECK: Trachea midline. Airway patent. CARDIOVASCULAR: Bradycardic, RR. S1, S2. No S4. Without murmur RESPIRATORY: No accessory muscle use. Clear to auscultation. Breath sounds equal bilaterally. GASTROINTESTINAL: Abdomen soft, non-tender, nondistended. Hypoactive bowel sounds appreciated MUSCULOSKELETAL: Extremities with trace lower extremity edema. 5 NEUROLOGICAL: Awake and alert. No obvious cranial nerve deficits. Strength Right upper extremity 4-5. Right lower extremity 4 out of 5. Left lower extremity 4/5. Left upper extremity 5 out of 5 A/P Assessment and Plan Neuro/Psych: Postop day #3 Left frontal craniotomy, evacuation of subdural hematoma 1.8 cm left frontal hygroma with 7 mm [id number]-[id number] shift C4/C5 anterolisthesis C 5/C6 retrolisthesis Anxiety disorder NOS History meningioma History of CVA Dry mouth Chronic benzodiazepine use Insomnia Postop day #3 for left frontal craniotomy with evacuation of left subdural hematomata by Dr. España CT brain on admission revealed 1.8 cm left frontal hygroma with a 7 mm left-to- right shift. Goal keep systolic blood pressure less than 160 Currently continuing alprazolam 0.5 milligrams every 6 hours when necessary On hydrocodone/acetaminophen 10/325 one to 2 tablets every 4 hours when necessary pain 1-10 Morphine sulfate 2-4 mg IV every 2 hours. Pain 1/10 Acetaminophen 650 mg every 4 hours when necessary fever Levetiracetam 500 mg IV twice a day seizure prophylaxis 7 days Holding temazepam 15 mg a night for insomnia Holding tramadol 50 mill grams every 6 hours Continue pilocarpine 5 mill grams every 6 hours for dry mouth CV: Hypertension Dyslipidemia Continue clonidine 0.1 mg twice a day but increased to 0.2 mg twice daily, metoprolol 25 mg by mouth twice a day, amlodipine 10 mg daily lisinopril 5 mg daily for hypertension increased to 5 mg twice a day. Continue atorvastatin 20 mg daily for dyslipidemia As needed labetalol and hydralazine to keep systolic blood pressure less than 160 Holding aspirin 81 mg daily light of subdural hematoma as above Echo - Normal left ventricular size. Mild concentric left ventricular hypertrophy. The left ventricular systolic function is low normal with an estimated ejection fraction in the range of 50-55%. Trace mitral valve regurgitation. Mild aortic valve regurgitation. There is mild to moderate tricuspid valve regurgitation. The estimated pulmonary arterial pressure is 40.8 mmHg. There is a trivial pericardial effusion present. Clonidine to tid, 0.3 mg. 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 Resume when clinically indicated Endo: Hypothyroidism Sliding-scale insulin with Novulin N with Accu-Cheks before meals/at bedtime to maintain euglycemia/low regimen Continue levothyroxine 50 mcg by mouth daily. Check TSH - 1.3 Renal: Chronic kidney disease stage IIIa Monitor urine output Accurate I's and O's d/c currently on normal saline with KCl at 50 cc an hour per neurosurgery Heme: Normocytic anemia Leukocytosis Monitor CBC daily. Follow trends Does not meet transfusion thresholds at this time. ID: Monitor for infection Follow-up on UA MSK: Gait and balance disorder PT/OT evaluate and treat FEN: Hyper-magnesium Replace electrolytes as clinically indicated Access - utilize peripheral IV. Central line if indicated Prophylaxis - GI - pantoprazole - DVT - SCD/pharmacological prophylaxis when okay with neurosurgery Level II follow-up. Patient is stable from a critical care medicine standpoint. Assign care to hospitalist in a.m. 1/13. Transfer to floor Chato Hankins MD Apr 19, 2017 09:30
--- NOTE | 2017-04-19 10:01 | HHI.NSPN ---
History Interval History Interval History 04/17: s/p left frontal craniotomy for evac of SDH 04/16/17. currently doing well , she appears more awake, surgical pain controlled. no new neurological complaints 04/18: headaches much better today, very eager to go home. blood pressure still elevated - being managed per critical care. reports increased strength right side 04/19: Patient is awake and alert. Feeling much better and is expressing desire to go home. Her potassium was fairly low and she is getting potassium replacement and according to nursing she has a very labile blood pressure today. Exam Results Vital Signs Date Time Temp Pulse Resp B/P (MAP) Pulse Ox O2 Delivery O2 Flow Rate FiO2 04/19/17 08:44 Nasal Cannula 04/19/17 07:05 20 04/19/17 04:00 98.2 74 167/81 (109) 96 04/17/17 21:58 21 04/17/17 21:33 2.00 Intake and Output 04/19/17 04/19/17 04/20/17 08:00 16:00 00:00 Intake Total 720 ml 250 ml Balance 720 ml 250 ml Physical Examination Alert and oriented, conversing well. follows commands well pupils equal, facial motor symmetric Moves all four extremities, mild right lower extremity paresis 4/5 Wound clean and dry, karoline intact Lab, Micro, Other Results Last [address] 04/18/17 0000 Signed Impressions: Service Date/Time: Tuesday, April 18, 2017 11:38 - CONCLUSION: Interval subdural drain placement with near complete evacuation of left subdural. Martin Altamirano MD Laboratory Tests Test 04/18/17 12:35 04/19/17 05:23 White Blood Count 10.9 11.9 Red Blood Count 3.65 3.87 Hemoglobin 10.3 11.1 Hematocrit 32.2 34.2 Mean Corpuscular Volume 88.4 88.3 Mean Corpuscular Hemoglobin 28.3 28.7 Mean Corpuscular Hemoglobin Concent 32.0 32.6 Red Cell Distribution Width 14.5 14.5 Platelet Count 183 187 Mean Platelet Volume 8.2 8.3 Blood Urea Nitrogen 11 8 Creatinine 0.87 0.77 Random Glucose 143 141 Calcium Level 8.3 8.4 Sodium Level 143 143 Potassium Level 3.5 2.9 Chloride Level 111 109 Carbon Dioxide Level 26.6 24.9 Anion Gap 5 9 Estimat Glomerular Filtration Rate 63 73 Neutrophils (%) (Auto) 75.8 Lymphocytes (%) (Auto) 14.1 Monocytes (%) (Auto) 9.6 Eosinophils (%) (Auto) 0.0 Basophils (%) (Auto) 0.5 Neutrophils # (Auto) 9.0 Lymphocytes # (Auto) 1.7 Monocytes # (Auto) 1.1 Eosinophils # (Auto) 0.0 Basophils # (Auto) 0.1 CBC Comment DIFF FINAL Differential Comment Total Protein 6.6 Albumin 3.3 Phosphorus Level 2.6 Magnesium Level 1.7 Alkaline Phosphatase 114 Aspartate Amino Transf (AST/SGOT) 27 Alanine Aminotransferase (ALT/SGPT) 15 Total Bilirubin 0.4 Medical Decision Making Impression and Plan 77 y/o female with acute on chronic subdural hematoma s/p left frontal craniotomy evac of SDH 04/16/17 Hypokalemia. Labile blood pressure. 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 We'll continue attempts at stabilizing her blood pressure. Patient adamant about being discharged today but I have tried to indicate to her that she cannot be discharged until her chemistries are normalized and her blood pressure has been stabilized. Devin Boyd MD Apr 19, 2017 10:01
[2017-04-19] MEDS: cloNIDine HCL 0.3 MG TAB PO SCH ×2 (11:53→17:38)
[2017-04-19 12:00] VITALS: BP 156/69; PULSE 77; PULSE 80; RESP 21; TEMP 98.4; O2SAT 96
[2017-04-19] MEDS ORDERED: hydrALAZINE HCL 50 MG TAB PO ONE (14:15)
[2017-04-19] MEDS ORDERED: LABETALOL HCL 100 MG/20 ML VIAL IV PUSH PRN (14:15)
[2017-04-19 16:00] VITALS: BP 143/68; PULSE 86; RESP 18; TEMP 98.4; O2SAT 99
[2017-04-19] MEDS ORDERED: MAGNESIUM CITRATE SOLN 300 ML BTL PO ONE (16:00)
[2017-04-19 20:00] VITALS: BP 151/60; PULSE 88; RESP 25; TEMP 97.8; O2SAT 96
[2017-04-19] MEDS: METOPROLOL TARTRATE 50 MG TAB PO SCH (20:56)
[2017-04-19] MEDS: LISINOPRIL 10 MG TAB PO SCH (20:56)
[2017-04-19] MEDS: ATORVASTATIN 20 MG TAB PO SCH (20:56)
[2017-04-19] MEDS: MORPHINE SULFATE 2 MG/ML INJ IV PRN (22:00)
[2017-04-19] MEDS: CHLORHEXIDINE GLUCONATE 2 % 1 PACK (2 CLOTHS) TOP SCH (23:17)
[2017-04-20] VITALS: BP 175/81; PULSE 78; RESP 18; TEMP 98.1; O2SAT 99
[2017-04-20] MEDS: PILOCARPINE HCL 5 MG TAB PO SCH ×3 (01:23→13:19)
[2017-04-20] MEDS: MORPHINE SULFATE 2 MG/ML INJ IV PRN (01:24)
[2017-04-20] MEDS: ALPRAZolam 0.5 MG TAB PO PRN (01:30)
[2017-04-20 04:00] VITALS: BP 158/73; PULSE 80; RESP 20; TEMP 97.6; O2SAT 99
[2017-04-20] MEDS: LEVOTHYROXINE SODIUM 50 MCG TAB PO SCH (05:41)
[2017-04-20] MEDS: levETIRAcetam INJ 500 MG in SODIUM CHLORIDE 0.9% INJ 100 ML IV SCH (05:41)
[2017-04-20 08:00] VITALS: BP 182/88; PULSE 88; RESP 22; TEMP 98.2; O2SAT 98
[2017-04-20] MEDS: INSULIN NovoLIN REGULAR SUPPLEMENTAL SCALE SQ SCH ×2 (08:00→12:00)
[2017-04-20] MEDS ORDERED: cloNIDine HCL 0.2 MG TAB PO PRN (08:30)
--- NOTE | 2017-04-20 08:38 | HHI.CCPN ---
Subjective Remarks/Hospital Course This is a 77-year-old female. Date of admission 04/16/2017. Past medical history includes anxiety, prior CVA, known meningioma, hypertension, disc edema, hypothyroidism, gastroesophageal reflux disease, hormone replacement therapy, chronic kidney disease stage IIIa, history of aVR, history of thoracic aortic aneurysm repaired 2006. Dyslipidemia [facility] yesterday status post fall which is diagnosed with a "brain bleed". She left the facility. She had another mechanical fall today presented to [facility] for further evaluation treatment. This revealed a 1.8 cm left subdural hygroma. Components with a 7 mm ucpg-lc-[id number] shift. Due to these findings, neurosurgery consultation recommended evacuation which was performed on 04/16. Patient focal weakness in the right lower greater than left lower extremity. Positive headache. Visible trauma to the right forehead. Patient is not on any systemic blood thinners however is on aspirin 81 mg daily. 04/17: Afebrile. Resting comfortably in bed in no acute distress. No seizure activity. No change in mental status. Subjective 04/18: Afebrile. Resting comfortably in bed in no acute distress. No seizure activity. No change in mental status. Desires to go home. 04/19: BP control problematic; will increase clonidine and lisinopril. 04/20: Still hypertensive - states she is on Clonidine 0.5 mg po tid at home. Will increase dose further. Lopressor, hydralazine, norvasc already added. Her Data Entry Technician is Dr. Anthony Carrasco. Objective Vital Signs Date Time Temp Pulse Resp B/P (MAP) Pulse Ox O2 Delivery O2 Flow Rate FiO2 04/20/17 07:32 Nasal Cannula 04/20/17 04:00 80 04/20/17 04:00 97.6 20 158/73 (101) 99 04/17/17 21:58 21 04/17/17 21:33 2.00 Intake and Output 04/20/17 04/20/17 04/21/17 08:00 16:00 00:00 Intake Total 480 ml Balance 480 ml Result Diagram: 04/19/17 0523 04/19/17 0523 Imaging Last Impressions Chest X-Ray 04/16/17 1326 Signed Impressions: Service Date/Time: Sunday, April 16, 2017 13:59 - CONCLUSION: 1. Minimal left lower lung zone airspace disease, likely atelectasis. Kaiden Shields MD Head CT 04/16/17 0000 Signed Impressions: Service Date/Time: Sunday, April 16, 2017 13:22 - CONCLUSION: 1.8 cm left subdural hygroma. Acute blood products there is well. 7 mm left to right shift. Benito Dai MD FACR Cervical Spine CT 04/16/17 0000 Signed Impressions: Service Date/Time: Sunday, April 16, 2017 13:22 - CONCLUSION: Degenerative changes. Degenerative retrolisthesis C5 on C6 and anterolisthesis C4 on 5. No fracture. Ramiro Romeo MD Objective Remarks GENERAL: 77-year-old female. SKIN: Warm and dry. Dry abrasions over right forehead. HEAD: Incision site clean, dry status post craniotomy. EYES: Pupils equal and round around 2 mm bilaterally and reactive. No scleral icterus. No injection or drainage. ENT: No nasal bleeding or discharge. Mucous membranes pink and moist. NECK: Trachea midline. Airway patent. CARDIOVASCULAR: Bradycardic, RR. S1, S2. No S4. Without murmur, rub. RESPIRATORY: No accessory muscle use. Clear to auscultation. Breath sounds equal bilaterally. GASTROINTESTINAL: Abdomen soft, non-tender, nondistended. Bowel sounds appreciated, no guarding. MUSCULOSKELETAL: Extremities with trace lower extremity edema. Well perfused. NEUROLOGICAL: Awake and alert. No obvious cranial nerve deficits. Strength Right upper extremity 4-5. Right lower extremity 4 out of 5. Left lower extremity 4/5. Left upper extremity 5 out of 5 A/P Assessment and Plan Neuro/Psych: Postop day #4 Left frontal craniotomy, evacuation of subdural hematoma 1.8 cm left frontal hygroma with 7 mm uasp-dl-utufr shift C4/C5 anterolisthesis C 5/C6 retrolisthesis Anxiety disorder NOS History meningioma History of CVA Dry mouth Chronic benzodiazepine use Insomnia Postop day #4 for left frontal craniotomy with evacuation of left subdural hematomata by Dr. [place] CT brain on admission revealed 1.8 cm left frontal hygroma with a 7 mm left-to- right shift. Goal keep systolic blood pressure less than 160 Currently continuing alprazolam 0.5 milligrams every 6 hours when necessary On hydrocodone/acetaminophen 10/325 one to 2 tablets every 4 hours when necessary pain 1-10 Morphine sulfate 2-4 mg IV every 2 hours. Pain 1/10 Acetaminophen 650 mg every 4 hours when necessary fever Levetiracetam 500 mg IV twice a day seizure prophylaxis 7 days Holding temazepam 15 mg a night for insomnia Holding tramadol 50 mill grams every 6 hours Continue pilocarpine 5 mill grams every 6 hours for dry mouth CV: Hypertension Dyslipidemia Continue clonidine 0.1 mg twice a day but increased to 0.2 mg twice daily, metoprolol 25 mg by mouth twice a day, amlodipine 10 mg daily lisinopril 5 mg daily for hypertension increased to 5 mg twice a day. Continue atorvastatin 20 mg daily for dyslipidemia As needed labetalol and hydralazine to keep systolic blood pressure less than 160 Holding aspirin 81 mg daily light of subdural hematoma as above Echo - Normal left ventricular size. Mild concentric left ventricular hypertrophy. The left ventricular systolic function is low normal with an estimated ejection fraction in the range of 50-55%. Trace mitral valve regurgitation. Mild aortic valve regurgitation. There is mild to moderate tricuspid valve regurgitation. The estimated pulmonary arterial pressure is 40.8 mmHg. There is a trivial pericardial effusion present. Clonidine to tid, 0.5 mg. Hydralazine 100 bid, norvasc 10 daily, lisinopril 20 bid. 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 Resume when clinically indicated Endo: Hypothyroidism Sliding-scale insulin with Novulin N with Accu-Cheks before meals/at bedtime to maintain euglycemia/low regimen Continue levothyroxine 50 mcg by mouth daily. Check TSH - 1.3 Renal: Chronic kidney disease stage IIIa Monitor urine output Accurate I's and O's d/c normal saline. Heme: Normocytic anemia Leukocytosis Monitor CBC daily. Follow trends Does not meet transfusion thresholds at this time. ID: Monitor for infection Follow-up on UA MSK: Gait and balance disorder PT/OT evaluate and treat FEN: Hyper-magnesium Replace electrolytes as clinically indicated Access - utilize peripheral IV. Central line if indicated Prophylaxis - GI - pantoprazole - DVT - SCD/pharmacological prophylaxis when okay with neurosurgery Overall impression: Patient is stable from a critical care medicine standpoint. Assign care to hospitalist. Transfer to floor. BP control remains major issue - still requiring frequent PRN meds for control. Chato Hankins MD Apr 20, 2017 08:38
[2017-04-20] MEDS: METOPROLOL TARTRATE 50 MG TAB PO SCH (08:58)
[2017-04-20] MEDS: MULTIVITAMIN TAB PO SCH (08:58)
[2017-04-20] MEDS: PANTOPRAZOLE SOD 40 MG DELAYED RELEASE TAB PO SCH (08:58)
[2017-04-20] MEDS: DOCUSATE SODIUM 100 MG CAP PO SCH (08:58)
[2017-04-20] MEDS: LISINOPRIL 10 MG TAB PO SCH (08:58)
[2017-04-20] MEDS: cloNIDine HCL 0.2 MG TAB PO SCH ×2 (08:59→13:00)
[2017-04-20] MEDS: cloNIDine HCL 0.3 MG TAB PO SCH ×2 (08:59→13:20)
[2017-04-20] MEDS: SODIUM CHLORIDE 0.9% FLUSH 10 ML FLUSH IV FLUSH SCH (08:59)
[2017-04-20] MEDS ORDERED: hydrALAZINE HCL 100 MG TAB PO SCH (09:00)
--- NOTE | 2017-04-20 09:32 | HHI.NSPN ---
History Interval History Interval History 04/17: s/p left frontal craniotomy for evac of SDH 04/16/17. currently doing well , she appears more awake, surgical pain controlled. no new neurological complaints 04/18: headaches much better today, very eager to go home. blood pressure still elevated - being managed per critical care. reports increased strength right side 04/19: Patient is awake and alert. Feeling much better and is expressing desire to go home. Her potassium was fairly low and she is getting potassium replacement and according to nursing she has a very labile blood pressure today. 04/20: Patient is awake and alert this morning with no new complaints. She is anxious to go home with blood pressure continues to be a problem. Exam Results Vital Signs Date Time Temp Pulse Resp B/P (MAP) Pulse Ox O2 Delivery O2 Flow Rate FiO2 04/20/17 08:00 88 04/20/17 08:00 98.2 22 98 04/20/17 07:32 Nasal Cannula 04/20/17 04:00 158/73 (101) 04/17/17 21:58 21 04/17/17 21:33 2.00 Intake and Output 04/20/17 04/20/17 04/21/17 08:00 16:00 00:00 Intake Total 480 ml Balance 480 ml Physical Examination Alert and oriented, conversing well. follows commands well pupils equal, facial motor symmetric Moves all four extremities, mild right lower extremity paresis 4/5 Wound clean and dry, kraoline intact Medical Decision Making Impression and Plan 77 y/o female with acute on chronic subdural hematoma s/p left frontal craniotomy evac of SDH 04/16/17 Hypokalemia. Labile blood pressure. Plan Plan Plan Remarks Blood pressure management as per nurse assessor. Patient clear for discharge when medically stable. Devin Boyd MD Apr 20, 2017 09:32
[2017-04-20 09:45] VITALS: BP 102/51; PULSE 70
[2017-04-20 12:00] VITALS: BP 130/69; PULSE 70; PULSE 74; RESP 21; TEMP 98.1; O2SAT 98
[2017-04-20 12:26] LABS: BICARBONATE 24.4 MEQ/L (21.0-32.0); CALCIUM 8.5 MG/DL (8.5-10.1); CREATININE 1.01 MG/DL (0.50-1.00)
[2017-04-20] MEDS ORDERED: CLON.2 PO (16:02)
[2017-04-20] MEDS ORDERED: LISI10TA3 PO (16:02)
[2017-04-20] MEDS ORDERED: HYDR-3516 PO (16:02)
[2017-04-20] MEDS ORDERED: LEVE500 PO (16:02)
[2017-04-20] MEDS ORDERED: HYDR-3801 PO (16:02)
[2017-04-20] MEDS ORDERED: CLON-481 PO (16:02)
[2017-04-20] MEDS ORDERED: METO-309 PO (16:02)
[2017-04-20] MEDS ORDERED: ALPR0.5T3 PO (16:02)
--- NOTE | 2017-04-20 16:05 | HHI.FF ---
Face to Face Verification Diagnosis: (1) Hypertensive urgency (2) Fall (3) Brain bleed Physical Therapy Order: Evaluate and Treat, Improve ambulation, Strength and gait training Home Health Nursing Order: Medical education Signs/symptoms of disease process Medication education-adverse effect Nursing assessment with vital signs I have seen patient Bre Uribe on 04/20/17. My clinical findings support the need for the requested home health care services because: Deconditioned w/ increased weakness Med compliance is questionable Limited ability to care for self Need for psychosocial assistance I certify that my clinical findings support that this patient is homebound because: Impaired cognitive ability/safety Unsafe to leave home unassisted Need for psychosocial assistance Unable to use public transportation Khoa Morgan DO Apr 20, 2017 16:05
--- NOTE | 2017-04-20 16:11 | HHI.DS ---
Discharge Summary Admission Date Apr 16, 2017 at 14:10 Discharge Date: Apr 20, 2017 Admitting Diagnosis acute subdural with shift, traumatic head injury (1) Subdural hygroma Diagnosis: Principal ICD Codes: D18.1 - Lymphangioma, any site (2) Hypertension Diagnosis: Principal ICD Codes: I10 - Essential (primary) hypertension (3) Dyslipidemia Diagnosis: Secondary ICD Codes: E78.5 - Hyperlipidemia, unspecified (4) History of meningioma of the brain Diagnosis: Secondary ICD Codes: Z86.011 - Personal history of benign neoplasm of the brain (5) Sinus bradycardia Diagnosis: Secondary ICD Codes: R00.1 - Bradycardia, unspecified (6) Hypothyroidism Diagnosis: Secondary ICD Codes: E03.9 - Hypothyroidism, unspecified (7) Normocytic anemia Diagnosis: Secondary ICD Codes: D64.9 - Anemia, unspecified (8) Dry mouth, unspecified Diagnosis: Secondary ICD Codes: R68.2 - Dry mouth, unspecified (9) Gait disorder Diagnosis: Secondary ICD Codes: R26.9 - Gait disorder Status: Acute (10) CKD (chronic kidney disease) stage 3, GFR 30-59 ml/min Diagnosis: Secondary ICD Codes: N18.3 - CKD (chronic kidney disease) stage 3, GFR 30-59 ml/min Status: Acute Consultants Dr. España Neurosurgery Brief History This is a 77-year-old female. Date of admission 04/16/2017. Past medical history includes anxiety, prior CVA, known meningioma, hypertension, disc edema, hypothyroidism, gastroesophageal reflux disease, hormone replacement therapy, chronic kidney disease stage IIIa, history of aVR, history of thoracic aortic aneurysm repaired 2006. Dyslipidemia [facility] yesterday status post fall which is diagnosed with a "brain bleed". She left the facility. She had another mechanical fall today presented to [facility] for further evaluation treatment. This revealed a 1.8 cm left subdural hygroma. Components with a 7 mm [id number] shift. Due to these findings, neurosurgery consultation recommended evacuation which was performed on 04/16. Patient focal weakness in the right lower greater than left lower extremity. Positive headache. Visible trauma to the right forehead. Patient is not on any systemic blood thinners however is on aspirin 81 mg daily. CBC/BMP: 04/19/17 0523 04/20/17 1104 Significant Findings Laboratory Tests Test 04/18/17 12:35 04/19/17 05:23 04/20/17 11:04 Red Blood Count 3.65 MIL/MM3 (4.00-5.30) 3.87 MIL/MM3 (4.00-5.30) Hemoglobin 10.3 GM/DL (11.6-15.3) 11.1 GM/DL (11.6-15.3) Hematocrit 32.2 % (35.0-46.0) 34.2 % (35.0-46.0) Random Glucose 143 MG/DL (74-106) 141 MG/DL (74-106) 134 MG/DL (74-106) Calcium Level 8.3 MG/DL (8.5-10.1) 8.4 MG/DL (8.5-10.1) Chloride Level 111 MEQ/L (98-107) 109 MEQ/L (98-107) 109 MEQ/L (98-107) Estimat Glomerular Filtration Rate 63 ML/MIN (>89) 73 ML/MIN (>89) 53 ML/MIN (>89) White Blood Count 11.9 TH/MM3 (4.0-11.0) Neutrophils (%) (Auto) 75.8 % (16.0-70.0) Monocytes (%) (Auto) 9.6 % (0.0-8.0) Neutrophils # (Auto) 9.0 TH/MM3 (1.8-7.7) Monocytes # (Auto) 1.1 TH/MM3 (0-0.9) Albumin 3.3 GM/DL (3.4-5.0) Potassium Level 2.9 MEQ/L (3.5-5.1) Creatinine 1.01 MG/DL (0.50-1.00) Imaging Last Impressions Head CT 04/18/17 0000 Signed Impressions: Service Date/Time: Tuesday, April 18, 2017 11:38 - CONCLUSION: Interval subdural drain placement with near complete evacuation of left subdural. Martin Altamirano MD Chest X-Ray 04/16/17 1326 Signed Impressions: Service Date/Time: Sunday, April 16, 2017 13:59 - CONCLUSION: 1. Minimal left lower lung zone airspace disease, likely atelectasis. Kaiden Shields MD Cervical Spine CT 04/16/17 0000 Signed Impressions: Service Date/Time: Sunday, April 16, 2017 13:22 - CONCLUSION: Degenerative changes. Degenerative retrolisthesis C5 on C6 and anterolisthesis C4 on 5. No fracture. Ramiro Romeo MD Hospital Course Subdural Hematoma, Left - pt had AMS, recurrent - pt had recurrent falls at home - CT of the brain showed a large subdural hematoma on the left parietasl region with increasing maximun thickness of 18mm, mass effect and midline shift of 7mm. A surgical decompression was indicated as recommended by the Trauma Committee of [employer] - Pt underwent evac of SDH 04/16/[address] España - pt cleared for discharge by Neurosurgery - Pt to f/u with Dr. España in 2 weeks - continue keppra - In view of pt's recurrent falls at home, serious/complicated admission, recent surgery and advanced age, I recommended discharge to SNF for continued rehabilitation and physical therapy as well as to observe pt with new blood pressure regiment. Pt adamantly refused. - I also suggested one additional day of hospitalization to ensure that pt's blood pressure was stable. Pt refuses continued hospitalization. - I will arrange for HHC and home PT with Case Management. HTN - Pt is on multiple BP medications. Per pt, BP regimen is controlled by Dr. Jonny Mcmillan, and she discussed all medication changes with Dr. Mcmillan. - Pt's blood pressure was difficult to control during this hospitalization, and there were a number of medication changes per CCM. - I will discharge her to home with medication regimen per critical care. - I would have greatly preferred an additional day of hospitalization to ensure stability of her blood pressure, but pt adamantly refuses. - Alternatively, it would be reasonable to discharge to SNF for close follow and observation of her blood pressure. Again, pt refuses. - I will discharge her to home today, per her wishes, with HHC and home physical therapy. - I will contacted pt's PCP, Dr. Jonny Mcmillan, to update him on pt's medication changes and complicated hospitalization. - Pt is to f/u with Dr. Mcmillan in 2-3 days Pt Condition on Discharge: Stable Discharge Disposition: Disch w/ Home Health Serv Discharge Instructions DIET: Follow Instructions for: Heart Healthy Diet Activities you can perform: Weight Bearing as [place] Activities to Avoid: Strenuous Activity Follow up Referrals: Neurosurgery - 2 Weeks with Matti España MD PCP Follow-up - 2-[address] Jonny Mcmillan New Medications: Levetiracetam (Keppra) 500 Mg Tab 500 MG PO BID for Control Seizures, #60 TAB 0 Refills Clonidine (Catapres) 0.2 Mg Tab 0.2 MG PO TID for htn, #30 TAB 0 Refills Clonidine (Catapres) 0.3 Mg Tab 0.3 MG PO TID for htn, #30 TAB 0 Refills Hydralazine (Hydralazine) 100 Mg Tab 100 MG PO Q12HR for htn, #20 TAB Take with meals Lisinopril (Lisinopril) 10 Mg Tab 10 MG PO BID for htn, #60 TAB 0 Refills Metoprolol Tartrate (Lopressor) 50 Mg Tab 50 MG PO BID for htn, #60 TAB 0 Refills Continued Medications: Alprazolam (Alprazolam) 0.5 Mg Tab 0.5 MG PO Q6H PRN for ANXIETY, #15 TAB 0 Refills (This prescription has been renewed) Amlodipine (Amlodipine) 10 Mg Tab 10 MG PO DAILY for Blood Pressure Management, #30 TAB 0 Refills Atorvastatin (Atorvastatin) 20 Mg Tab 20 MG PO HS for Cholesterol Management, #30 TAB 0 Refills Hydrocodone-Acetaminophen (Hydrocodone-Acetaminophen) 5-325 mg Tab 1 TAB PO Q4H PRN for PAIN, #10 TAB 0 Refills (This prescription has been renewed ) Levothyroxine (Levothyroxine) 50 Mcg Tab 50 MCG PO DAILY for Thyroid, #30 TAB 0 Refills Multiple Vitamin (Multi-Vitamin Daily) 1 Tab Tab 1 TAB PO DAILY for Nutritional Supplement, TAB 0 Refills Omeprazole (Omeprazole) 20 Mg Tab 20 MG PO DAILY, #30 TAB 0 Refills Discontinued Medications: Aspirin (Aspirin Low Dose) 81 Mg Chew 81 MG CHEW DAILY, TAB 0 Refills Clonidine (Clonidine) 0.1 Mg Tab 0.1 MG PO BID for Blood Pressure Management, #60 TAB 0 Refills Estradiol (Estradiol) 1 Mg Tab 1 MG PO DAILY for Estrogen Supplements, #30 TAB 0 Refills Lisinopril (Lisinopril) 5 Mg Tab 5 MG PO DAILY for Blood Pressure Management, #30 TAB 0 Refills Metoprolol Tartrate (Metoprolol Tartrate) 25 Mg Tab 25 MG PO BID, #60 TAB 0 Refills Pilocarpine (Pilocarpine) 5 Mg Tab 5 MG PO Q6HR for Dry Mouth, #120 TAB 0 Refills Temazepam (Temazepam) 15 Mg Cap 15 MG PO HS PRN for INSOMNIA, #30 CAP 0 Refills Khoa Morgan DO Apr 20, 2017 16:11
== END 2017-04-20 17:42 | disposition home health service (06) | DRG 26 ==
LOC: HOR 12:36 → NEDA 14:10 → N03A 18:55
PROVIDERS: ADMIT Internal Medicine Critical Care Medicine; ATTEND Internal Medicine Critical Care Medicine
PROC: 00C40ZZ Extirpation of Matter from Intracranial Subdural Space, Open Approach (ICD-10-PCS; principal; 2017-04-16 16:41)
DX: S06.5X9A Traumatic subdural hemorrhage with loss of consciousness of unspecified duration, initial encounter (principal); J98.11 Atelectasis; R00.1 Bradycardia, unspecified; E83.41 Hypermagnesemia; N18.3 Chronic kidney disease, stage 3 (moderate); E78.5 Hyperlipidemia, unspecified; I12.9 Hypertensive chronic kidney disease with stage 1 through stage 4 chronic kidney disease, or unspecified chronic kidney disease; D18.1 Lymphangioma, any site; D64.9 Anemia, unspecified; E03.9 Hypothyroidism, unspecified; K21.9 Gastro-esophageal reflux disease without esophagitis; R68.2 Dry mouth, unspecified; R26.9 Unspecified abnormalities of gait and mobility; F41.9 Anxiety disorder, unspecified; M43.12 Spondylolisthesis, cervical region; G47.00 Insomnia, unspecified; E87.6 Hypokalemia; R29.6 Repeated falls; I08.1 Rheumatic disorders of both mitral and tricuspid valves; D72.829 Elevated white blood cell count, unspecified; Z79.899 Other long term (current) drug therapy; Z79.82 Long term (current) use of aspirin; Z79.890 Hormone replacement therapy; Z95.3 Presence of xenogenic heart valve; Z86.73 Personal history of transient ischemic attack (TIA), and cerebral infarction without residual deficits; Z86.011 Personal history of benign neoplasm of the brain; W19.XXXA Unspecified fall, initial encounter; Z86.79 Personal history of other diseases of the circulatory system
CPT/HCPCS: 70450; 71045; 72125; 80048; 80053; 81001; 82948; 83735; 84100; 84443; 85025; 85027; 85610; 85730; 88304; 93005; 93306; J0360; J0690; J1100; J1580; J1953; J2270; J2405; J3010; J3480

== ENCOUNTER 2017-06-25 09:46 | Inpatient (IN) | payer MEDICARE ==
[2017-06-25] VITALS (13 sets, daily range): BP systolic 138–146; BP diastolic 61–66; PULSE 76–88; RESP 13–14; TEMP 96.1–98.1; O2SAT 98–100
[~2017-06-25] VITALS: Ht 165.1 cm; Wt 70.2 kg
[~2017-06-25 09:46] MED LIST changes: +ALPR0.5T3 PO; -AMLO10 PO; +AMLO10TA2 PO; +ATOR20TA15 PO; +BACL10TA PO; +CLON-481 PO; -DEXAMETHASONE SOD PHOS 4 MG/ML VIAL IV ONE; +DONE10TA7 PO; -ECOT81TA2 PO; -ESTR.625 PO; +ESTR0.5T PO; +FURO20TA PO; -GLYCOPYRROLATE 1 MG/5 ML SYRINGE IV PUSH ONE; +HYDR-3516 PO; +HYDR-3801 PO; +HYDR200T3 PO; +LAMO100T PO; +LEVE500 PO; -LEVO.025 PO; +LEVO50TA4 PO; -LIDOCAINE HCL 1% PF 5 ML SYRINGE OTHER ONE; -LIPI10TA PO; -LISI-363 PO; +LISI10TA3 PO; +METO-309 PO; -METO50TA PO; -OMEP20TA PO; +OMEP20TA93 PO; -ONDANSETRON HCL 4 MG/2 ML VIAL IV ONE; -PROPOFOL 200 MG/20 ML AMP IV ONE; -ROCURONIUM INJ 50 MG/5 ML SYRINGE IV PUSH ONE; +TRAM50TA PO; -TYLE3 PO
[2017-06-25] MEDS ORDERED: DIPHTH/TETANUS/ACEL PERTUSSIS (BOOSTER) 0.5 ML VIAL/PFS IM ONE (09:53)
[2017-06-25] MEDS ORDERED: IOHEXOL 350 MG/ML 10 ML VIAL (for RAD DIAG) IVCONTRAST ONE (10:13)
[2017-06-25 10:15] LABS: AUTOMATED NEUTROPHIL # 8.8 TH/MM3 (1.8-7.7); BASOPHIL # 0.1 TH/MM3 (0-0.2); BASOPHIL % 0.6 % (0.0-2.0); HEMATOCRIT 36.6 % (35.0-46.0); LYMPH % 24.5 % (9.0-44.0); LYMPHOCYTE # 3.1 TH/MM3 (1.0-4.8); MEAN CELL VOLUME 83.9 FL (80.0-100.0); MEAN CORPUSCULAR HEMOGLOBIN 27.4 PG (27.0-34.0); MEAN CORPUSCULAR HGB CONC 32.7 % (32.0-36.0); MEAN PLATELET VOLUME 8.3 FL (7.0-11.0); MONO % 6.2 % (0.0-8.0); MONOCYTE # 0.8 TH/MM3 (0-0.9); NEUT % 68.7 % (16.0-70.0); PLATELET COUNT 188 TH/MM3 (150-450); RED BLOOD COUNT 4.36 MIL/MM3 (4.00-5.30); RED CELL DISTRIBUTION WIDTH 15.4 % (11.6-17.2); WHITE BLOOD COUNT 12.8 TH/MM3 (4.0-11.0)
[2017-06-25] MEDS ORDERED: MANNITOL INJ 200 ML ONE (10:23)
[2017-06-25] MEDS ORDERED: GELFOAM SIZE 100 ONE (10:24)
[2017-06-25] MEDS ORDERED: GENTAMICIN SULFATE 80 MG/2 ML VIAL ONE (10:24)
[2017-06-25] MEDS ORDERED: ceFAZolin INJ 1,000 MG VIAL ONE (10:24)
[2017-06-25] MEDS ORDERED: THROMBIN (TOPICAL) 5,000 UNIT VIAL ONE (10:24)
[2017-06-25] MEDS ORDERED: levETIRAcetam 500 MG/5 ML VIAL IV ONE (10:25)
--- NOTE | 2017-06-25 10:27 | PD ---
HPI Chief Complaint: Trauma alert Time Seen by Provider: 09:47 Travel History International Travel<30 days: No Contact w/Intl Traveler<30days: No History of Present Illness HPI Patient is a 77 year old female BIBEMS as a trauma alert. She was found by her on the ground in the garage. Per EMS, she was last seen at 3AM. He did not know why she was in the garage. Patient was intubated on scene. She is unresponsive on arrival, unable to provide any history. PFSH Past Medical History Congestive Heart Failure: No Hypertension: Yes Past Surgical History Surgical History: Unable to Obtain Social History Tobacco Use: No Allergies-Medications (Allergen,Severity, Reaction): Coded Allergies: No Known Allergies (Unverified , 06/25/17) Reported Meds & Prescriptions Reported Meds & Active Scripts Active Review of Systems ROS Limitations: Altered Mental Status, Unresponsive Physical Exam Narrative GENERAL: Patient intubated, unresponsive. SKIN: Focused skin assessment warm/dry. HEAD: Atraumatic. Normocephalic. EYES: Right pupil 6mm, nonreactive, left pupil 3mm and reactive. ENT: Mucous membranes pink and moist. NECK: Trachea midline. No JVD. CARDIOVASCULAR: Regular rate and rhythm. No murmur appreciated. RESPIRATORY: No accessory muscle use. Clear to auscultation. Breath sounds equal bilaterally. GASTROINTESTINAL: Abdomen soft, non-tender, nondistended. MUSCULOSKELETAL: No obvious deformities. No clubbing. No cyanosis. No edema. NEUROLOGICAL: Not moving, not sedated. Data Data Last Documented VS Vital Signs Date Time Temp Pulse Resp B/P (MAP) Pulse Ox O2 Delivery O2 Flow Rate FiO2 06/25/17 10:27 100 100 Orders Orders I-Stat Profile (06/25/17 09:47) Complete Blood Count With Diff (06/25/17 09:47) Prothrombin Time / Inr (Pt) (06/25/17 09:47) Act Partial Throm Time (Ptt) (06/25/17 09:47) Type And Screen (06/25/17 09:47) Chest, Single Ap (06/25/17 09:47) Pelvis, Ap Only (Routine) (06/25/17 09:47) Ct Brain W/O Iv Contrast(Rout) (06/25/17 09:47) Ct Cerv Spine W/O Contrast (06/25/17 09:47) Ct Thorax/ Chest W Iv Contrast (06/25/17 09:47) Iv Access Insert/Monitor (06/25/17 09:47) Ecg Monitoring (06/25/17 09:47) Oximetry (06/25/17 09:47) Oxygen Administration (06/25/17 09:47) Rrot-Yhs-Ynrmqp (Booster) Inj (Boostrix (06/25/17 09:53) Ct Abd/Pel W Iv Contrast(Rout) (06/25/17 ) Iohexol 350 Inj (Omnipaque 350 Inj) (06/25/17 10:13) Nicardipine Inj (Cardene Inj) (06/25/17 10:30) Mannitol Inj (Mannitol Inj) (06/25/17 10:30) Mannitol Inj (Mannitol Inj) (06/25/17 10:23) Nicardipine Inj (Cardene Inj) (06/25/17 10:23) Cefazolin Inj (Ancef Inj) (06/25/17 10:24) Thrombin Top Soln (Thrombin Top Soln) (06/25/17 10:24) Gelfoam 100 Top (Gelfoam 100 Top) (06/25/17 10:24) Gentamicin Inj (Gentamicin Inj) (06/25/17 10:24) Levetiracetam Inj (Keppra Inj) (06/25/17 10:25) Admit Order (Ed Use Only) (06/25/17 ) Labs Laboratory Tests Test 06/25/17 09:45 White Blood Count 12.8 TH/MM3 Red Blood Count 4.36 MIL/MM3 Hemoglobin 12.0 GM/DL Bedside Hemoglobin 11.9 G/DL Hematocrit 36.6 % Bedside Hematocrit 35.0 % Mean Corpuscular Volume 83.9 FL Mean Corpuscular Hemoglobin 27.4 PG Mean Corpuscular Hemoglobin Concent 32.7 % Red Cell Distribution Width 15.4 % Platelet Count 188 TH/MM3 Mean Platelet Volume 8.3 FL Neutrophils (%) (Auto) 68.7 % Lymphocytes (%) (Auto) 24.5 % Monocytes (%) (Auto) 6.2 % Eosinophils (%) (Auto) 0.0 % Basophils (%) (Auto) 0.6 % Neutrophils # (Auto) 8.8 TH/MM3 Lymphocytes # (Auto) 3.1 TH/MM3 Monocytes # (Auto) 0.8 TH/MM3 Eosinophils # (Auto) 0.0 TH/MM3 Basophils # (Auto) 0.1 TH/MM3 CBC Comment DIFF FINAL Differential Comment Prothrombin Time 11.7 SEC Prothromb Time International Ratio 1.2 RATIO Activated Partial Thromboplast Time 19.6 SEC Bedside Sodium 146 MMOL/L Bedside Potassium 2.6 MMOL/L Bedside Chloride 106 MMOL/L Bedside Blood Urea Nitrogen 17 MG/DL Bedside Creatinine 1.5 MG/DL Bedside Glucose 229 MG/DL MDM Medical Decision Making Medical Screen Exam Complete: Yes Emergency Medical Condition: Yes Interpretation(s) ECG shows NSR, no ST elevation Differential Diagnosis ICH vs subdural vs subarachnoid vs epidural hematoma Narrative Course Patient is a 77 year old female BIBEMS as a trauma alert. She was found down in the garage. She was intubated by EMS prior to arrival. On arrival, she is not moving, unresponsive. She was taken to CT which revealed a subdural hematoma. Neurosurgery was called, they will take her to the OR for drainage. Patient admitted to the trauma service. Diagnosis Primary Impression: Subdural hematoma Admitting Information Admitting Physician Requests: Admit Jocelyn Alba MD Jun 25, 2017 10:27
[2017-06-25] MEDS ORDERED: fentaNYL CITRATE 250 MCG/5 ML AMP ONE (10:28)
[2017-06-25 10:30] LABS: INTERNATIONAL NORMALIZED RATIO 1.2 RATIO; PROTHROMBIN TIME - PATIENT 11.7 SEC (9.8-11.6)
[2017-06-25] MEDS ORDERED: niCARdipine INJ 25 MG in SODIUM CHLOR 0.9% 250 ML INJ 240 ML IV ONE (10:30)
[2017-06-25] MEDS ORDERED: MANNITOL 12.5 GM/50 ML VIAL IV ONE (10:30)
--- NOTE | 2017-06-25 10:33 | RADRPT ---
EXAM DATE/TIME: 06/25/2017 09:46 [facility] COMPARISON: No previous studies available for comparison. INDICATIONS : Trauma to head, unresponsive. MEDICAL HISTORY : None. SURGICAL HISTORY : None. ENCOUNTER: Initial ACUITY: 1 day PAIN SCORE: Non-responsive. LOCATION: Bilateral chest FINDINGS: Endotracheal tube is present with tip 8 cm above the nick. Lungs are focally clear. No effusion or pneumothorax is identified. Accounting for rotation, the cardiac contours are satisfactory. Sternotom y wires are present. CONCLUSION: Satisfactory endotracheal tube positioning. Grossly negative trauma chest Martin Altamirano MD on June 25, 2017 at 10:28 Board Certified Radiologist. This report was verified electronically.
--- NOTE | 2017-06-25 10:46 | RADRPT ---
EXAM DATE/TIME: 06/25/2017 09:46 [facility] COMPARISON: No previous studies available for comparison. INDICATIONS : Trauma to head, bruising to left side, lacerations to left forearm. MEDICAL HISTORY : None. SURGICAL HISTORY : None. ENCOUNTER: Initial ACUITY: 1 day PAIN SCORE: Non-responsive. LOCATION: Bilateral pelvis FINDINGS: Artifact is present from backboard A single frontal view of the pelvis demonstrates no evidence of fr acture. The bony pelvic ring is intact. Bony mineralization is normal. The soft tissues are intact . CONCLUSION: Artifact, negative for acute process Benito Dai MD FACR on June 25, 2017 at 10:43 Board Certified Radiologist. This report was verified electronically.
--- NOTE | 2017-06-25 10:50 | RADRPT ---
EXAM DATE/TIME: 06/25/2017 10:00 [facility] COMPARISON: No previous studies available for comparison. INDICATIONS : Trauma alert, fall. RADIATION DOSE: 16.68 CTDIvol (mGy) MEDICAL HISTORY : Non-responsive. SURGICAL HISTORY : Non-responsive. ENCOUNTER: Initial ACUITY: 1 day PAIN SCALE: Non-responsive LOCATION: neck TECHNIQUE: Volumetric scanning of the cervical spine was performed. Multiplanar reconstructions in the sagittal, coronal and oblique axial planes were performed. Using automated exposure control and adjustment o f the mA and/or kV according to patient size, radiation dose was kept as low as reasonably achievable to obtain optimal diagnostic quality images. DICOM format image data is available electronically f or review and comparison. FINDINGS: VERTEBRAE: Normal vertebral body height. ALIGNMENT: No evidence of subluxation. C2-C3: The bony spinal canal is normal in size. No evidence of disc bulge or herniation. The neural forami na are bilaterally patent. C3-C4: The bony spinal canal is normal in size. No evidence of disc bulge or herniation. The neural forami na are bilaterally patent. C4-C5: The bony spinal canal is normal in size. No evidence of disc bulge or herniation. The neural forami na are bilaterally patent. C5-C6: Moderate uncinate ridging is present with minimal spinal stenosis. Bilateral neural foraminal encroa chment worse in the left. C6-C7: Moderately ridging present with mild cervical spinal stenosis. Bilateral foraminal encroachment wors e on the left. C7-T1: The bony spinal canal is normal in size. No evidence of disc bulge or herniation. The neural forami na are bilaterally patent. CONCLUSION: Significant degenerative changes at C5-C6 and C6-C7. Negative for acute fracture. Benito Dai MD FACR on June 25, 2017 at 10:47 Board Certified Radiologist. This report was verified electronically.
--- NOTE | 2017-06-25 10:53 | RADRPT ---
EXAM DATE/TIME: 06/25/2017 10:05 [facility] COMPARISON: No previous studies available for comparison. INDICATIONS : Trauma alert, fall. IV CONTRAST: 93 cc Omnipaque 350 (iohexol) IV ; Cumulative dose for multiple exams. ORAL CONTRAST: No oral contrast ingested. RADIATION DOSE: 5.53 CTDIvol (mGy) ; Combined studies - Thorax/Abdomen/Pelvis MEDICAL HISTORY : Non-responsive. SURGICAL HISTORY : Non-responsive. ENCOUNTER: Initial ACUITY: 1 day PAIN SCALE: Non-responsive LOCATION: abdomen/pelvis TECHNIQUE: Volumetric scanning of the abdomen and pelvis was performed. Using automated exposure control and ad justment of the mA and/or kV according to patient size, radiation dose was kept as low as reasonably achievable to obtain optimal diagnostic quality images. DICOM format image data is available electro nically for review and comparison. FINDINGS: Lung spaces are clear lower lungs are clear. There is mild compensated cardiomegaly The liver is free of focal defects spleen, pancreas and adrenal glands appear normal. Dense calcific ations are seen in the gallbladder fossa. There symmetrical renal function without renal mass There is no free fluid or free air Extensive vascular calcifications are noted. Large cystic mass measuring 4 cm is present in the right adnexa region. There is no inguinal adenopathy Review of bone windows reveals degenerative changes in the lumbar spine without fracture. CONCLUSION: Negative for acute traumatic injury. Extensive atherosclerotic vascular calcifications. 4 cm cystic mass right adnexa region Benito Dai MD FACR on June 25, 2017 at 10:48 Board Certified Radiologist. This report was verified electronically.
--- NOTE | 2017-06-25 10:55 | PD.CONS ---
[facility] Service neurosurgery Consult Requested By Dr Varela Reason for Consult Trauma alert Primary Care Physician Unknown History of Present Illness This is an elderly lady fell under unknown circumstances at home. She lost consiousness. No seizure activity reported. No tongue bitting. No incontinence of stool or urine. No tonic clonic movements Apparently she was found on the ground this morning and was transferred to our institution as priority 1 trauma alert with a C-collar in place and on spinal board. On the scene, patient was unconscious with a low Bk coma scale of 4, and anisocoria. She was intubated, ventilated, resuscitated according to the ATLS protocol, and then transferred to CAT scan. She was extending her extremities to pain CT of the brain show a large right-sided acute subdural hematoma with severe mass-effect and midline shift. Neurosurgical consultation was requested Review of Systems Unobtainable patient is sedated and intubated ROS Limitations: Intoxication, Altered Mental Status Past Family Social History Allergies: Coded Allergies: No Known Allergies (Unverified , 06/25/17) Past Medical History Unobtainable patient is sedated and comatose Past Surgical History Unobtainable patient is sedated and comatose Reported Medications Unobtainable patient is sedated and comatose Active Ordered Medications Current Medications Diphtheria/ Tetanus/Acell Pertussis (Boostrix Inj) 0.5 ml STK-MED ONCE IM ; Start 06/25/17 at 09:53; Stop 06/25/17 at 09:54; Status DC Iohexol (Omnipaque 350 Inj) 93 ml STK-MED ONCE IVCONTRAST Last administered on 06/25/17at 10:13; Start 06/25/17 at 10:13; Stop 06/25/17 at 10:14; Status DC Nicardipine HCl 25 mg/Sodium Chloride 250 ml @ 0 mls/hr TITRATE ONCE IV ; Start 06/25/17 at 10:30; Stop 06/25/17 at 10:31; Status DC Mannitol (Mannitol Inj) 50 gm ONCE ONCE IV ; Start 06/25/17 at 10:30; Stop 3/ 21/18 at 10:31; Status DC Mannitol 200 ml @ As Directed STK-MED ONCE .ROUTE ; Start 06/25/17 at 10:23; Stop 06/25/17 at 10:24; Status DC Nicardipine HCl (Cardene Inj) 25 mg STK-MED ONCE .ROUTE ; Start 06/25/17 at 10: 23; Stop 06/25/17 at 10:24; Status DC Cefazolin Sodium (Ancef Inj) 2,000 mg STK-MED ONCE .ROUTE ; Start 06/25/17 at 10 :24; Stop 06/25/17 at 10:25; Status DC Thrombin (Thrombin Top Soln) 10,000 units STK-MED ONCE .ROUTE ; Start 06/25/17 at 10:24; Stop 06/25/17 at 10:25; Status DC Gelatin (Gelfoam 100 Top) 1 foam STK-MED ONCE .ROUTE ; Start 06/25/17 at 10:24; Stop 06/25/17 at 10:25; Status DC Gentamicin Sulfate (Gentamicin Inj) 240 mg STK-MED ONCE .ROUTE ; Start 06/25/17 at 10:24; Stop 06/25/17 at 10:25; Status DC Levetriacetam (Keppra Inj) 1,000 mg STK-MED ONCE IV ; Start 06/25/17 at 10:25; Stop 06/25/17 at 10:26; Status DC Fentanyl Citrate (fentaNYL INJ) 500 mcg STK-MED ONCE .ROUTE ; Start 06/25/17 at 10:28; Stop 06/25/17 at 10:29; Status DC Family History Unobtainable patient is sedated and comatose Social History Unobtainable patient is sedated and comatose Physical Exam Vital Signs Vital Signs Date Time Temp Pulse Resp B/P (MAP) Pulse Ox O2 Delivery O2 Flow Rate FiO2 06/25/17 10:30 100 100 06/25/17 10:27 100 100 06/25/17 10:15 100 100 Physical Exam The patient is intubated and sedated. Extends to pain with her extremities. Cranial Nerves: Pupils uneequal, with a right 6mm and the left round, reactive to light. Eyes appear non conjugated. No nystagmus Face musculature appeared symmetrical at rest. Face sensation, olfaction, visual moe, and hearing cannot be adequately assessed due to his neurological condition. The patient has a corneal reflex. He has a gag reflex. The sternocleidomastoid and trapezius are symmetrical. Cervical Spine: His neck is soft, supple, without nuchal rigidity. Motor: Her muscle tone and bulk are normal. She extends all 4 extremities to pain Reflexes: Deep tendon reflexes are 1+ and symmetrical in the biceps, triceps, and brachioradialis, bilaterally, in the upper extremities. In the lower extremities, the patellar and ankles are 1+, bilaterally. There is a bilateral Babinski. There is no clonus Sensory: On examination there is response to painful stimuli, extending with her upper and lower extremities. Cerebellar: Examination cannot be adequately assessed due to the patient's neurological condition. Lungs are clear Heart regular rhythm and rate Skin warm and dry Laboratory Laboratory Tests Test 06/25/17 09:45 White Blood Count 12.8 Red Blood Count 4.36 Hemoglobin 12.0 Bedside Hemoglobin 11.9 Hematocrit 36.6 Bedside Hematocrit 35.0 Mean Corpuscular Volume 83.9 Mean Corpuscular Hemoglobin 27.4 Mean Corpuscular Hemoglobin Concent 32.7 Red Cell Distribution Width 15.4 Platelet Count 188 Mean Platelet Volume 8.3 Neutrophils (%) (Auto) 68.7 Lymphocytes (%) (Auto) 24.5 Monocytes (%) (Auto) 6.2 Eosinophils (%) (Auto) 0.0 Basophils (%) (Auto) 0.6 Neutrophils # (Auto) 8.8 Lymphocytes # (Auto) 3.1 Monocytes # (Auto) 0.8 Eosinophils # (Auto) 0.0 Basophils # (Auto) 0.1 CBC Comment DIFF FINAL Differential Comment Prothrombin Time 11.7 Prothromb Time International Ratio 1.2 Activated Partial Thromboplast Time 19.6 Bedside Sodium 146 Bedside Potassium 2.6 Bedside Chloride 106 Bedside Blood Urea Nitrogen 17 Bedside Creatinine 1.5 Bedside Glucose 229 Result Diagram: 06/25/17 0945 Attending Statement Acute subdural hematoma with mass effect, midline shift, and evidence of herniation. An emergency surgical procedure is indicated in an attempt to save her life, with a decompressive craniectomy or craniotomy. Placement of IVP monitor indicated as recommended by the [place] [employer] of Neurological surgeons. Mannitol followed by treatment with hypertonic saline. Controlled hyperventilation with PCO2 around 33. Follow up CT in AM. If she developes hydrocephalus will place a ventriculostomy catheter Poor prognosis due to hemorrhage in an elderly patient Uncontrolled arterial hypertension. start Cardene drip with a goal to maintain the systolic blood pressure less than 160 Electrolytes replacement per ICU protocol Endocrine. Monitor serial Acu checks and SSI as needed in detail PT/OT evaluation Nutrition. NPO Renal. monitor closely urine output, BUN and creatinine ID monitor for signs of infection Protonix for stress ulcer prophylaxis Yunior hose and SCD's for DVT prophylaxis, - No pharmacological DVT prophylaxis due to traumatic ICH Further recommendations will be provided depending on the patient's clinical evaluation and follow up studies. Matti España MD Jun 25, 2017 10:55
[2017-06-25] MEDS ORDERED: VANCOMYCIN HCL 1000 MG VIAL ONE (10:56)
[2017-06-25] MEDS ORDERED: SODIUM CHLOR 0.9% 250 ML INJ 250 ML ONE (10:56)
--- NOTE | 2017-06-25 11:02 | RADRPT ---
EXAM DATE/TIME: 06/25/2017 10:05 [facility] COMPARISON: CT CERVICAL SPINE W/O CONTRAST, June 25, 2017, 10:00. INDICATIONS : Trauma alert, fall. IV CONTRAST: 93 cc Omnipaque 350 (iohexol) IV ; Cumulative dose for multiple exams. RADIATION DOSE: 5.53 CTDIvol (mGy) ; Combined studies - Thorax/Abdomen/Pelvis MEDICAL HISTORY : Non-responsive. SURGICAL HISTORY : Non-responsive. ENCOUNTER: Initial ACUITY: 1 day PAIN SCALE: Non-responsive LOCATION: chest TECHNIQUE: Volumetric scanning of the chest was performed. Using automated exposure control and adjustment of t he mA and/or kV according to patient size, radiation dose was kept as low as reasonably achievable to obtain optimal diagnostic quality images. DICOM format image data is available electronically for review and comparison. Follow-up recommendations for detected pulmonary nodules are based at a minimum on nodule size and pa tient risk factors according to Fleischner Society Guidelines. FINDINGS: Imaging through the pulmonary parenchyma demonstrates the lungs to be clear. No pneumothorax is ident ified. The endotracheal tube appears in satisfactory position. Soft tissue windowed images demonstrate the patient to be post median sternotomy. The tubular portion of the ascending aorta is abnormal in appearance. There is a small amount of mural thrombus. 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 The proximal arch remain s aneurysmal with a maximum dimension of 4.1 cm. The descending thoracic aorta is mildly aneurysmal a t 3.5 cm throughout its course. The origins of the great vessels are widely patent. There is no significant hilar, mediastinal or axillary adenopathy. No pericardial effusion is seen. N o pleural effusion is present. The limited portions of upper abdomen are unremarkable appearance. There mild degenerative changes throughout the spine. CONCLUSION: 1. There is an abnormal appearance of the ascending aorta suggesting previous repair of the aortic ro ot possibly secondary to either aneurysmal dilation or an old dissection. There is no evidence of rup ture of the aortic root. The arch is aneurysmal at 4.1 cm. The descending thoracic aorta is aneurysma l at 3.5 cm. 2. The lungs are clear. John Dai MD on June 25, 2017 at 10:53 Board Certified Radiologist. This report was verified electronically.
[2017-06-25] MEDS ORDERED: LIDOCAINE 1%/EPINEPHrine 1:100,000 SOLN 50 ML VIAL ONE (11:03)
[2017-06-25] MEDS ORDERED: POTASSIUM CHLOR 20 MEQ PREMIX 200 ML ONE (11:07)
--- NOTE | 2017-06-25 11:07 | RADRPT ---
EXAM DATE/TIME: 06/25/2017 10:00 [facility] COMPARISON: No previous studies available for comparison. INDICATIONS : Trauma alert, fall. RADIATION DOSE: 56.35 CTDIvol (mGy) MEDICAL HISTORY : Non-responsive. SURGICAL HISTORY : Non-responsive. ENCOUNTER: Initial ACUITY: 1 day PAIN SCALE: Non-responsive LOCATION: cranial TECHNIQUE: Multiple contiguous axial images were obtained of the head. Using automated exposure control and adj ustment of the mA and/or kV according to patient size, radiation dose was kept as low as reasonably a chievable to obtain optimal diagnostic quality images. DICOM format image data is available electro nically for review and comparison. FINDINGS: The examination demonstrates a large subdural hematoma surrounding the right hemisphere. The maximum thickness of this is 2.1 cm. There is very significant mass effect associated with this. There is 1.4 cm of right to left falcine shift. There is effacement of the perimesencephalic cisterns inferiorly. There are some punctate areas of increased parenchymal density within the left occipital cortex and the medial aspect of the right temporal lobe. This would be concerning for intraparenchymal contusion . The examination also demonstrates a thin rim of extra-axial hemorrhage along the left hemisphere rita uring approximately 1-2 mm in size. No mass lesion is identified. No intraventricular hemorrhage is seen. The osseous structures of the skull demonstrate previous craniotomy changes on the left. The sinuses are clear. The orbits are intact. The brain parenchyma demonstrates decreased attenuation in the white matter indicating some degree of diffuse edema within the white matter. CONCLUSION: 1. Large subdural hematoma on the right measuring 2.1 cm in thickness. There is significant mass effe ct with 1.4 cm of right to left falcine shift. There is effacement of the perimesencephalic cisterns indicating some degree of downward herniation. There is fairly diffuse edema within the white matter. 2. Small rim of extra-axial hemorrhage along the left hemisphere as well measuring approximately 1-2 mm in thickness. 3. Punctate areas of intraparenchymal hemorrhage in the left occipital cortex and medial aspect of th e right temporal cortex. John Dai MD on June 25, 2017 at 11:00 Board Certified Radiologist. This report was verified electronically.
[2017-06-25] MEDS ORDERED: ONDANSETRON HCL 4 MG/2 ML VIAL IV PUSH PRN (11:15)
[2017-06-25] MEDS ORDERED: PROPOFOL 1000 MG/100 ML INJ 100 ML IV PRN ×3 (11:15→16:45)
[2017-06-25] MEDS ORDERED: NALOXONE HCL 0.4 MG/ML AMP IV PUSH PRN (11:15)
[2017-06-25] MEDS ORDERED: SODIUM CHLORIDE 0.9% FLUSH 10 ML FLUSH IV FLUSH PRN (11:15)
[2017-06-25] MEDS ORDERED: Post-op Orders (for Pharmacy) XX ONE (11:15)
[2017-06-25] MEDS ORDERED: fentaNYL DRIP 250 ML IV PRN ×3 (11:15→16:45)
[2017-06-25] MEDS ORDERED: levETIRAcetam INJ 500 MG in SODIUM CHLORIDE 0.9% INJ 100 ML IV SCH (12:00)
[2017-06-25] MEDS ORDERED: PHENYLEPH/NS 1000 MCG/10 ML SYR IV ONE (12:00)
[2017-06-25] MEDS: SODIUM CHLOR 0.9% 1000 ML INJ 1,000 ML IV SCH ×2 (12:00→22:00)
[2017-06-25] MEDS: PANTOPRAZOLE SOD 40 MG DELAYED RELEASE TAB PO SCH (12:00)
[2017-06-25] MEDS ORDERED: ePHEDrine/NS 25 MG/5 ML SYRINGE IV ONE (12:00)
[2017-06-25] MEDS ORDERED: SODIUM CHLOR 0.9% 250 ML INJ 1,000 ML IV ONE (12:00)
[2017-06-25] MEDS ORDERED: PHENYLEPHRINE HCL 10 MG/ML VIAL IV ONE (12:00)
[2017-06-25] MEDS ORDERED: STERILE WATER FOR INJECTION 20 ML VIAL IV ONE (12:00)
[2017-06-25] MEDS ORDERED: ROCURONIUM INJ 50 MG/5 ML SYRINGE IV PUSH ONE (12:00)
[2017-06-25] MEDS ORDERED: LACTATED RINGER'S 1000 ML INJ 1,000 ML IV ONE (12:00)
--- NOTE | 2017-06-25 12:13 | MH ---
cc: Tatiana Higginbotham MD DATE OF ADMISSION: 06/25/2017 ADMITTING DIAGNOSIS: Massive head trauma, traumatic brain injury, right large subdural hematoma. HISTORY OF PRESENT ILLNESS: This unfortunate elderly lady fell under unknown circumstances at home. She was found this morning and was transferred to our institution as priority 1 trauma alert with a C-collar in place and on spinal board. On the scene, patient was unconscious with a low [place] coma scale, maybe 3 or 4, and remained so. She was intubated, ventilated, resuscitated, and then transferred to [facility]. PAST MEDICAL AND SURGICAL HISTORY: Unknown. MEDICATIONS: Unknown. ALLERGIES: UNKNOWN. SOCIAL HISTORY: Unknown. PHYSICAL EXAMINATION: GENERAL: Reveals an elderly lady, normocephalic. Trauma to the head consisted of some bruising over the forehead on the right and a little bit over the nose. Pupils are unequal, the right is blown, the left is small, about 2 mm and reactive, the right one is about 5 mm and nonreactive. Extraocular muscles cannot be tested. NECK: Appears to be supple. No signs of trauma to the neck. C-collar is repositioned. CHEST: Bilateral breath sounds. The patient has a very thin chest and signs of pulmonary cachexia. HEART: Regular rhythm. Hemodynamically, patient remains stable. EXTREMITIES: Pelvis is stable. Patient has palpable proximal and distal pulses. No vascular deficit. BACK: Normal. NEUROLOGIC: Bk Coma Scale is 3. The patient has very weak bilateral reflexes and no Babinski on either side. IMPRESSION: The patient with a significant degree of hypertension and a large subdural hematoma on the right side. The patient will be taken to the operating room immediately. Critical care time 40 minutes. Tatiana Higginbotham MD [facility] , 11:22 AM , 12:11 PM
[2017-06-25] MEDS ORDERED: DO NOT ADM ANY ANTICOAGULANT DRUGS PRN (12:33)
--- NOTE | 2017-06-25 13:08 | PD.OP ---
Operative Report Date of Surgery: Jun 25, 2017 Preoperative Diagnosis: Severe traumatic brain injury Postoperative Diagnosis: Severe traumatic brain injury Procedure: Left frontal bur hole with placement of an intracranial pressure monitor. Anesthesia: general Surgeon: Matti España Soybean Grower(s): Giovana Sidhu Operation and Findings: INTRAOPERATIVE FINDINGS Intracranial pressures of 7 mmHg. INDICATIONS FOR THE PROCEDURE The patient is an adult male who was brought to [facility] as a trauma alert with a severe traumatic brain injury and a lareg acute subdural hematoma. She had a GCS of 4 with a right pupil dilated and fixed. CT of the brain showed a large acute subdural hematoma with mass effect and midline shift. Placement of ICP monitor was indicated as recommended by the Trauma Commitee of [place] [employer] Neu[employer] Surgeonbs DETAILS OF THE SURGICAL PROCEDURE The left frontal area was shaved, prepped and draped in the usual sterile fashion. An entry point was selected behind the hairline, approximately 30 mm lateral to the midline. The incision was infiltrated with 1% lidocaine with epinephrine 1:100,000 dilution. A small incision was made with a 15 blade down to the level of the periosteum. Using a twist drill a jeevan hole was made. The dura was opened with a blunt stylet, and a Sabina bolt was secured to the bone. A fiberoptic transducer was calibrated according to the agricultural mechanic's instructions, and advanced into the parenchyma of the frontal lobe through the bolt. An intracranial pressure of 5 mmHg was achieved with a good waveform. A Betadine sterile dressing was applied. The patient tolerated the procedure well. There were no intraoperative complications. Blood loss was minimal. Matti España MD Jun 25, 2017 13:08
--- NOTE | 2017-06-25 13:12 | PD.OP ---
Operative Report Date of Surgery: Jun 25, 2017 Preoperative Diagnosis: Severe traumatic brain injury. Large right acure dubdural hematoma Postoperative Diagnosis: Severe traumatic brain injury. Large right acure dubdural hematoma Procedure: Right frontal temporal parietal decompressive craniotomy, evacuation of subdural hematoma, duroplasty Anesthesia: general endotracheal Surgeon: Matti España Women'S Garment Fitter(s): Giovana Sidhu Operation and Findings: INDICATIONS FOR THE PROCEDURE The patient is an adult female who was brought to [facility] as a trauma alert with a severe traumatic brain injury. She had a GCS of 4 with a right pupil dilated and fixed and anisocoria. CT of the brain showed a rightr hemispheric large acute subdural hematoma with mass effect and midline shift. A surgical decompression was indicated as recommended by the Trauma Commitee of [place] [employer] Neurological Surgeon[employer] in an attempt to save the patient 's life DETAILS OF THE SURGICAL PROCEDURE The patient was endotracheally intubated and mechanically ventilated. A Ortega catheter, bilateral SHAHEEN hose and sequential compression devices were placed and kept throughout the procedure. The patient was positioned supine on a 3080 table over a soft mattress and a roll underneath her right shoulder and her head turned to the left. Her eyes were tapped shut after ointment was applied by the anesthesiologist to prevent corneal abrasion. A Christine hugger was placed over the exposed lower body to maintain control of the core body temperature. The head was placed on a gel doughnut. All pressure points were carefully padded with egg crate mattress. The frontotemporal parietal area was shaved, prepped and draped in the usual sterile fashion. A standard inverted question felipe incision was outlined on the right scalp and infiltrated with 1% lidocaine with epinephrine. The skin incision was made with a #10 blade down to the level of the periosteum in the frontoparietal region and to the temporalis fascia in the temporal region. Mitchel clips were applied to the scalp. Using a Bovie, the temporalis fascia and muscle were incised and a subperiosteal dissection was performed reflecting the scalp flap anteriorly. The scalp was covered with a moist sponge and held in position using fish hooks. The TPS drill was brought to the field and a bur hole was made in the temporal region using the craniotome attachment. Then, using the footplate attachment, a large right frontotemporoparietal craniotomy flap was elevated. The dura was bulging, very tense with severe pressure and an underlying dark coloration related to the acute subdural hematoma. The dura was opened with a 15 blade and metzembaun scissors and a large subdural hematoma was found, causing significant mass effect. The hematoma was evacuated by gentle irrigation and sent to the lab for histologic analysis. The bleeding was controlled using the bipolar appliance sales associate. Then the incision was irrigated with saline solution. The dural edges were tacked to the bone. The dura was loosely reconstructed with Duragen. A 7 millimeter Bud-Gomez drain was then left in the subdural and subgaleal space and externalized through a separate stab incision. The incision was then closed in layers. 0 Vicryl in interrupted sutures were used to close the temporalis fascia. The galea was closed with interrupted 3- 0 Vicryl. Marta were applied to the skin. The drain was secured with a 3-0 nylon. At the end of the procedure, the sponge, needle and instrument counts were all correct. Estimated blood loss was less than 100 cc. No blood transfusion was given. No intraoperative complications occurred. The patient received prophylactic antibiotics. The patient was then transferred to the recovery room in stable condition. Matti España MD Jun 25, 2017 13:12
[2017-06-25] MEDS ORDERED: PHARMACY NEEDS HT/WT ENTERED SCH (14:00)
[2017-06-25 15:29] LABS: AUTOMATED NEUTROPHIL # 11.9 TH/MM3 (1.8-7.7); BASOPHIL % 0.3 % (0.0-2.0); HEMATOCRIT 26.9 % (35.0-46.0); HEMOGLOBIN 9.2 GM/DL (11.6-15.3); LYMPH % 10.5 % (9.0-44.0); LYMPHOCYTE # 1.5 TH/MM3 (1.0-4.8); MEAN CELL VOLUME 82.8 FL (80.0-100.0); MEAN CORPUSCULAR HEMOGLOBIN 28.4 PG (27.0-34.0); MEAN CORPUSCULAR HGB CONC 34.3 % (32.0-36.0); MEAN PLATELET VOLUME 8.3 FL (7.0-11.0); MONO % 7.4 % (0.0-8.0); MONOCYTE # 1.1 TH/MM3 (0-0.9); NEUT % 81.8 % (16.0-70.0); PLATELET COUNT 176 TH/MM3 (150-450); RED BLOOD COUNT 3.25 MIL/MM3 (4.00-5.30); RED CELL DISTRIBUTION WIDTH 15.3 % (11.6-17.2); WHITE BLOOD COUNT 14.5 TH/MM3 (4.0-11.0)
[2017-06-25 15:50] LABS: BICARBONATE 24.3 MEQ/L (21.0-32.0); CALCIUM 7.5 MG/DL (8.5-10.1); CREATININE 1.41 MG/DL (0.50-1.00)
[2017-06-25] MEDS ORDERED: 3% SALINE INJ 500 ML IV SCH ×3 (16:45→21:15)
--- NOTE | 2017-06-25 16:59 | PD.CONS ---
[facility] Service Critical Care Medicine Consult Requested By Patria Reason for Consult TBI, Respiratory Failure Primary Care Physician Unknown History of Present Illness Elderly woman found down at home after several hours. Brought to ED largely unresponsive. CT head reveal large traumatic SDH. Taken to OR for evacuation. Seen on arrival her to [facility] Review of Systems ROS Unobtainable. Past Family Social History Allergies: Coded Allergies: No Known Allergies (Unverified , 06/25/17) Physical Exam Vital Signs Vital Signs Date Time Temp Pulse Resp B/P (MAP) Pulse Ox O2 Delivery O2 Flow Rate FiO2 06/25/17 15:53 100 50 06/25/17 15:45 99 100 06/25/17 15:00 65 16 129/54 (79) 100 Mechanical Ventilator 50 119/56 (77) 06/25/17 14:00 65 16 123/61 (81) 100 Mechanical Ventilator 50 126/52 (76) 06/25/17 13:25 100 50 06/25/17 13:05 100 50 06/25/17 13:00 57 16 148/60 (89) 100 Mechanical Ventilator 50 139/58 (85) 06/25/17 12:33 06/25/17 12:33 95.9 52 16 128/61 (83) 100 Mechanical Ventilator 50 06/25/17 10:30 100 100 06/25/17 10:27 100 100 06/25/17 10:15 100 100 Physical Exam Head: Wrapped in dry clean dressing. Intracranial pressure bolt in place. Neck: Supple. Orally intubated with 6.5 mm endotracheal tube. Lungs: Clear bilaterally. No adventitious sounds. Good bilateral air movement. Heart: Regular rate and rhythm. Normal S1-S2. No jugular venous distention. Abdomen: Soft, nondistended, no guarding, no bowel sounds. Extremities: Warm: Well perfused: No edema. Neuro: Unresponsive status post anesthetic. Right pupil 3 mm and briskly reactive. Left pupil 2 mm and briskly reactive. Sedated. Laboratory Laboratory Tests Test 06/25/17 09:45 06/25/17 11:15 06/25/17 13:09 06/25/17 15:10 White Blood Count 12.8 14.5 Red Blood Count 4.36 3.25 Hemoglobin 12.0 9.2 Bedside Hemoglobin 11.9 Hematocrit 36.6 26.9 Bedside Hematocrit 35.0 Mean Corpuscular Volume 83.9 82.8 Mean Corpuscular Hemoglobin 27.4 28.4 Mean Corpuscular Hemoglobin Concent 32.7 34.3 Red Cell Distribution Width 15.4 15.3 Platelet Count 188 176 Mean Platelet Volume 8.3 8.3 Neutrophils (%) (Auto) 68.7 81.8 Lymphocytes (%) (Auto) 24.5 10.5 Monocytes (%) (Auto) 6.2 7.4 Eosinophils (%) (Auto) 0.0 0.0 Basophils (%) (Auto) 0.6 0.3 Neutrophils # (Auto) 8.8 11.9 Lymphocytes # (Auto) 3.1 1.5 Monocytes # (Auto) 0.8 1.1 Eosinophils # (Auto) 0.0 0.0 Basophils # (Auto) 0.1 0.0 CBC Comment DIFF FINAL DIFF FINAL Differential Comment Prothrombin Time 11.7 Prothromb Time International Ratio 1.2 Activated Partial Thromboplast Time 19.6 Bedside Sodium 146 Bedside Potassium 2.6 Bedside Chloride 106 Bedside Blood Urea Nitrogen 17 Bedside Creatinine 1.5 Bedside Glucose 229 Blood Gas Puncture Site DRAWN IN OR ART LINE Blood Gas Patient Temperature 98.6 98.6 Blood Gas HCO3 25 22 Blood Gas Base Excess 0.7 -1.4 Blood Gas Oxygen Saturation 98 98 Arterial Blood pH 7.41 7.47 Arterial Blood Partial Pressure CO2 40 30 Arterial Blood Partial Pressure O2 231 210 Arterial Blood Oxygen Content 14.8 13.2 Arterial Blood Carboxyhemoglobin 1.1 0.9 Arterial Blood Methemoglobin 1.0 1.2 Blood Gas Hemoglobin 10.4 9.2 Oxygen Delivery Device OR VENTILATOR Blood Gas Ventilator Setting OR PRVC/AC Blood Gas Inspired Oxygen 50 50 Blood Urea Nitrogen 18 Creatinine 1.41 Random Glucose 137 Calcium Level 7.5 Sodium Level 145 Potassium Level 4.0 Chloride Level 111 Carbon Dioxide Level 24.3 Anion Gap 10 Estimat Glomerular Filtration Rate 32 Result Diagram: 06/25/17 1510 06/25/17 1510 Assessment and Plan Assessment and Plan Assessment: 1. Traumatic subdural hematoma 2. Traumatic brain injury 3. Respiratory failure 4. Coma Plan: 1. PRVC ventilator mode. PEEP 5 2. Monitor and tidal CO2 and maintain PC02 and range 35-40 torr 3. Correlate end-tidal carbon dioxide with arterial blood gas 4. Insert central venous access line 5. Initiate 3% saline intravenous infusion at 30 cc/h 6. Check serum sodium and osmolality every 6 hours. Maintain osmolality and range 310-320 7. Pepcid for GI ulcer prophylaxis 8. SCD for DVT prophylaxis 9. Monitor intracranial pressure 10. Infuse 23% saline for intracranial pressure greater than 20 if osmolality less than 310. 11. Propofol and fentanyl sedation to control intracranial pressure 12. Head of bed elevated at least 30. Overall impression: This patient has a devastating head injury and presented with a profound neurologic deficit. She is critically ill after having undergone evacuation of a large subdural hematoma. We anticipate cerebral edema and complications including seizures and prolonged requirement for ventilator support. Critical care time 45 minutes aside from procedures Chato Hankins MD Jun 25, 2017 16:59
--- NOTE | 2017-06-25 17:06 | RADRPT ---
EXAM DATE/TIME: 06/25/2017 16:45 [facility] COMPARISON: CHEST SINGLE AP, June 25, 2017, 9:46. INDICATIONS : Evalaute for central line placement. MEDICAL HISTORY : None. SURGICAL HISTORY : CABG. ENCOUNTER: Subsequent ACUITY: 1 day PAIN SCORE: Non-responsive. LOCATION: chest FINDINGS: The right subclavian tip in the right atrium. No pneumothorax. Minimal parenchymal changes left bas e The heart and pulmonary vascularity are normal. The portion of the bony skeleton visualized is unrema rkable. CONCLUSION: Right subclavian line tip in the right atrium. No pneumothorax.. Benito Dai MD FACR on June 25, 2017 at 17:03 Board Certified Radiologist. This report was verified electronically.
--- NOTE | 2017-06-25 17:16 | PD.PROCEDR ---
Procedure Note Procedure Diagnosis: Traumatic brain injury Operation: Insertion of left subclavian vein central venous access line Procedure: Timeout and proper identification of patient was performed. The left chest was painted with Betadine and prepped and draped sterilely. Using a thin-walled needle the left subclavian vein was cannulated and a wire advanced into the central circulation. Dilators were passed and the triple-lumen catheter was delivered over the guidewire to the central circulation. Lumens were aspirated and flushed StatLock dressing was applied chest x-ray confirmed position of the catheter in good position Chato Hankins MD Jun 25, 2017 17:16
[2017-06-25] MEDS ORDERED: NOREPINEPHRINE INJ 4 MG in SODIUM CHLOR 0.9% 250 ML INJ 246 ML IV PRN (17:30)
[2017-06-25] MEDS ORDERED: TERBUTALINE INJ 1 MG/ML AMP SQ PRN (17:30)
--- NOTE | 2017-06-25 18:03 | PD.PROCEDR ---
Procedure Note Procedure Endotracheal tube exchange Patient with a 6.5 ETT. Patient was preoxygenated with an FiO2 of 1 prior to the procedure. Sedation was continued with propofol and fentanyl infusions. Head of the bed was left elevated. Bougie was placed through existing ET tube, existing tube was removed and the new 7.5 mm ET tube was threaded over bougie up to 23 cm at the lip. Confirmation of correct endotracheal tube placement was made by equal and bilateral breath sounds and colorimetric CO2 detection. Good return volumes on ventilator breaths. Chest x-ray was ordered. Patient maintained O2 sat at 100% throughout the procedure. Pablo Chino MD Jun 25, 2017 18:03
--- NOTE | 2017-06-25 18:40 | RADRPT ---
EXAM DATE/TIME: 06/25/2017 18:09 [facility] COMPARISON: CHEST SINGLE AP, June 25, 2017, 16:45. INDICATIONS : ET tube exchange. MEDICAL HISTORY : None. SURGICAL HISTORY : None. ENCOUNTER: Subsequent ACUITY: 1 day PAIN SCORE: Non-responsive. LOCATION: chest FINDINGS: A single view of the chest demonstrates endotracheal tube in good position. Right central line in rig ht atrium. Mild basilar atelectasis or scarring. Previous sternotomy. CONCLUSION: 1. Endotracheal tube in good position. Right central line in right atrium. Minimal basilar scarring o r atelectasis. Malik Mccann MD on June 25, 2017 at 18:36 Board Certified Radiologist. This report was verified electronically.
[2017-06-25] MEDS ORDERED: CHLORHEXIDINE 0.12% (ORAL KIT) 15 ML CUP MT SCH (20:00)
--- NOTE | 2017-06-25 20:02 | EKG ---
Date Performed: 06/25/2017 Time Performed: 10:27:33 PTAGE: 89 years EKG: SINUS BRADYCARDIA MODERATE INTRAVENTRICULAR CONDUCTION DELAY ST DEVIATION AND MODERATE T-WA VE ABNORMALITY, CONSIDER INFERIOR ISCHEMIA ABNORMAL ECG INTERPRETATION BASED ON A DEFAULT AGE OF 40 Y EARS NO PREVIOUS TRACING DOCTOR: Baljinder Hawk Interpretating Date/Time 06/25/2017 20:01:16
[2017-06-25] MEDS: SODIUM CHLORIDE 0.9% FLUSH 10 ML FLUSH IV FLUSH SCH (21:00)
[2017-06-25 21:25] LABS: PHOSPHORUS 3.2 MG/DL (2.5-4.9)
[2017-06-25] MEDS: levETIRAcetam INJ 500 MG in SODIUM CHLORIDE 0.9% INJ 100 ML IV SCH (21:41)
[2017-06-25] MEDS: CHLORHEXIDINE 0.12% (ORAL KIT) 15 ML CUP MT SCH (21:41)
[2017-06-25] MEDS: niCARdipine 25 MG/NS 250 ML Vial2Bag or IV room IV PRN ×2 (23:12)
[2017-06-26] VITALS (19 sets, daily range): BP systolic 130–148; BP diastolic 47–70; PULSE 75–104; RESP 12–13; TEMP 96–98.1; O2SAT 96–100
[2017-06-26 05:21] LABS: AUTOMATED NEUTROPHIL # 9.1 TH/MM3 (1.8-7.7); BASOPHIL # 0.1 TH/MM3 (0-0.2); BASOPHIL % 0.7 % (0.0-2.0); HEMATOCRIT 25.4 % (35.0-46.0); HEMOGLOBIN 8.5 GM/DL (11.6-15.3); LYMPH % 15.8 % (9.0-44.0); MEAN CELL VOLUME 84.1 FL (80.0-100.0); MEAN CORPUSCULAR HEMOGLOBIN 28.1 PG (27.0-34.0); MEAN CORPUSCULAR HGB CONC 33.4 % (32.0-36.0); MEAN PLATELET VOLUME 8.6 FL (7.0-11.0); MONO % 10.8 % (0.0-8.0); MONOCYTE # 1.3 TH/MM3 (0-0.9); NEUT % 72.7 % (16.0-70.0); PLATELET COUNT 159 TH/MM3 (150-450); RED BLOOD COUNT 3.02 MIL/MM3 (4.00-5.30); RED CELL DISTRIBUTION WIDTH 16.1 % (11.6-17.2); WHITE BLOOD COUNT 12.5 TH/MM3 (4.0-11.0)
[2017-06-26 05:50] LABS: BICARBONATE 22.4 MEQ/L (21.0-32.0); CALCIUM 7.4 MG/DL (8.5-10.1); CREATININE 1.26 MG/DL (0.50-1.00)
[2017-06-26 06:04] LABS: CALCIUM-PROTEIN CORRECTED 8.5 MG/DL (8.5-10.1); TOTAL PROTEIN 5.2 GM/DL (6.4-8.2)
[2017-06-26] MEDS: niCARdipine 25 MG/NS 250 ML Vial2Bag or IV room IV PRN ×6 (06:24→18:17)
[2017-06-26] MEDS ORDERED: MULT1TAB46 (07:22)
[2017-06-26] MEDS ORDERED: VITATAB43 PO (07:22)
[2017-06-26] MEDS ORDERED: BACL10TA PO (07:22)
[2017-06-26] MEDS ORDERED: ATOR10TA15 PO (07:22)
[2017-06-26] MEDS ORDERED: ALPR0.25 PO (07:22)
[2017-06-26] MEDS ORDERED: HYDR-3516 PO (07:22)
[2017-06-26] MEDS ORDERED: LISI-515 PO (07:22)
[2017-06-26] MEDS ORDERED: TRAM50TA PO (07:22)
[2017-06-26] MEDS ORDERED: METO-426 PO (07:22)
[2017-06-26] MEDS ORDERED: OMEP20CA2 (07:22)
[2017-06-26] MEDS ORDERED: TEMA15CA PO (07:22)
[2017-06-26] MEDS ORDERED: LEVE500T8 PO (07:22)
[2017-06-26] MEDS ORDERED: CHOL500022 PO (07:22)
[2017-06-26] MEDS ORDERED: K-TA10TA PO (07:22)
[2017-06-26] MEDS ORDERED: ESTR0.5T PO (07:22)
[2017-06-26] MEDS ORDERED: LEVO50TA4 PO (07:22)
[2017-06-26] MEDS ORDERED: AMLO10TA2 PO (07:22)
[2017-06-26] MEDS ORDERED: FURO20TA PO (07:22)
[2017-06-26] MEDS ORDERED: HYDR200T3 PO (07:22)
[2017-06-26] MEDS ORDERED: LAMO100T PO (07:22)
[2017-06-26] MEDS ORDERED: CLON0.2T PO (07:22)
[2017-06-26] MEDS ORDERED: DONE10TA7 PO (07:22)
[2017-06-26] MEDS: CHLORHEXIDINE 0.12% (ORAL KIT) 15 ML CUP MT SCH ×2 (08:00→20:06)
[2017-06-26] MEDS: SODIUM CHLOR 0.9% 1000 ML INJ 1,000 ML IV SCH ×2 (08:00→18:57)
[2017-06-26] MEDS: SODIUM CHLORIDE 0.9% FLUSH 10 ML FLUSH IV FLUSH SCH ×2 (08:39→22:35)
[2017-06-26] MEDS: levETIRAcetam INJ 500 MG in SODIUM CHLORIDE 0.9% INJ 100 ML IV SCH ×2 (09:15→22:34)
[2017-06-26] MEDS ORDERED: FUROSEMIDE 20 MG TAB PO SCH (10:45)
[2017-06-26] MEDS ORDERED: POTASSIUM CHLOR 40 MEQ PREMIX 100 ML IV PRN ×2 (11:00)
[2017-06-26] MEDS ORDERED: POTASSIUM CHLORIDE 25 MEQ EFFERVESCENT TAB PO PRN ×2 (11:00)
[2017-06-26] MEDS ORDERED: POTASSIUM CHLORIDE 10 MEQ CONTROLLED RELEASE TAB PO SCH (11:00)
[2017-06-26] MEDS ORDERED: POTASSIUM CHLOR 20 MEQ PREMIX 100 ML IV PRN ×2 (11:00)
[2017-06-26] MEDS ORDERED: MAGNESIUM SULFATE INJ 4 GM in SODIUM CHLORIDE 0.9% INJ 92 ML IV PRN (11:00)
[2017-06-26] MEDS ORDERED: POTASSIUM PHOSPHATE INJ 30 MMOL in SODIUM CHLOR 0.9% 250 ML INJ 250 ML IV PRN (11:00)
[2017-06-26] MEDS ORDERED: POTASSIUM PHOSPHATE MONOBASIC 500 MG TAB PO PRN (11:00)
[2017-06-26] MEDS ORDERED: MAGNESIUM OXIDE 400 MG TAB PO PRN (11:00)
[2017-06-26] MEDS ORDERED: MAGNESIUM SULFATE INJ 2 GM in SODIUM CHLORIDE 0.9% INJ 96 ML IV PRN (11:00)
[2017-06-26] MEDS ORDERED: SODIUM PHOSPHATE INJ 30 MMOL in SODIUM CHLOR 0.9% 250 ML INJ 240 ML IV PRN (11:00)
[2017-06-26] MEDS ORDERED: POTASSIUM PHOSPHATE MONOBASIC 500 MG TAB PO/TUBE PRN (11:00)
[2017-06-26] MEDS ORDERED: cloNIDine HCL 0.3 MG/24 HR PATCH T-DERMAL SCH (12:00)
[2017-06-26] MEDS: LEVOTHYROXINE SODIUM 50 MCG TAB PO SCH (12:11)
[2017-06-26] MEDS: LISINOPRIL 20 MG TAB PO SCH ×2 (12:11→22:35)
[2017-06-26] MEDS: PANTOPRAZOLE SOD 40 MG DELAYED RELEASE TAB PO SCH (12:11)
[2017-06-26] MEDS: POTASSIUM CHLORIDE 10 MEQ CONTROLLED RELEASE TAB PO SCH (12:15)
[2017-06-26] MEDS: METOPROLOL TARTRATE 5 MG/5 ML VIAL IV PUSH SCH ×3 (13:37→22:35)
--- NOTE | 2017-06-26 16:23 | HHI.CCPN ---
Subjective Remarks/Hospital Course Elderly woman found down at home after several hours. Brought to ED largely unresponsive. CT head reveal large traumatic SDH. Taken to OR for evacuation. Seen on arrival her to [facility] 06/26: Gas exchange acceptable. ICP control has required numerous ventilatory and osmolal manipulations. Objective Vital Signs Date Time Temp Pulse Resp B/P (MAP) Pulse Ox O2 Delivery O2 Flow Rate FiO2 06/26/17 14:00 75 06/26/17 13:37 100 40 06/26/17 13:27 144/49 06/26/17 12:00 98.1 13 06/26/17 07:00 Mechanical Ventilator Intake and Output 06/26/17 06/26/17 06/27/17 08:00 16:00 00:00 Intake Total 1101 ml Output Total 930 ml Balance 171 ml Result Diagram: 06/26/17 0500 06/26/17 1100 Other Results Laboratory Tests Test 06/25/17 16:54 06/26/17 04:29 Blood Gas Puncture Site ART LINE ART LINE Blood Gas Patient Temperature 98.6 98.6 Blood Gas HCO3 22 mmol/L (22-26) 21 mmol/L (22-26) Blood Gas Base Excess -1.2 mmol/L (-2-2) -2.4 mmol/L (-2-2) Blood Gas Oxygen Saturation 98 % (90-100) 98 % (90-100) Arterial Blood pH 7.49 (7.380-7.420) 7.43 (7.380-7.420) Arterial Blood Partial Pressure CO2 29 mmHg (38-42) 33 mmHg (38-42) Arterial Blood Partial Pressure O2 214 mmHg (61-120) 176 mmHg (61-120) Arterial Blood Oxygen Content 12.9 Vol % (12.0-20.0) 12.5 Vol % (12.0-20.0) Arterial Blood Carboxyhemoglobin 1.3 % (0-4) 1.1 % (0-4) Arterial Blood Methemoglobin 0.7 % (0-2) 1.0 % (0-2) Blood Gas Hemoglobin 9.0 G/DL (12.0-16.0) 8.8 G/DL (12.0-16.0) Oxygen Delivery Device VENTILATOR VENTILATOR Blood Gas Ventilator Setting SEE COMMENTS PRVC/AC Blood Gas Inspired Oxygen 50 % 40 % Objective Remarks Head: Wrapped in dry clean dressing. Intracranial pressure bolt in place. Neck: Supple. Orally intubated with 6.5 mm endotracheal tube. Exchanged for 8.0 tube. Lungs: Clear bilaterally. No adventitious sounds. Good bilateral air movement. Heart: Regular rate and rhythm. Normal S1-S2. No JVD Abdomen: Soft, nondistended, no guarding, no bowel sounds. Extremities: Warm: Well perfused: No edema. Neuro: Unresponsive status post anesthetic. Right pupil 2 mm and briskly reactive. Left pupil 2 mm and briskly reactive. Lightly sedated for ICP control and vent synchrony. A/P Assessment and Plan -Assessment: 1. Traumatic subdural hematoma 2. Traumatic brain injury 3. Respiratory failure 4. Coma Plan: 1. PRVC ventilator mode. PEEP 5. Start SBTs. 2. Monitor and tidal CO2 and maintain PC02 and range 35-40 torr 3. Correlate end-tidal carbon dioxide with arterial blood gas 4. Insert central venous access line 5. Initiate 3% saline intravenous infusion at 30 cc/h 6. Check serum sodium and osmolality every 6 hours. Maintain osmolality and range 310-320 7. Pepcid for GI ulcer prophylaxis 8. SCD for DVT prophylaxis 9. Monitor intracranial pressure 10. Infuse 23% saline for intracranial pressure greater than 20 if osmolality less than 310. 11. Propofol and fentanyl sedation to control intracranial pressure 12. Head of bed elevated at least 30. Overall impression: This patient is critically ill after a severe traumatic head injury and presented with a profound neurologic deficit. She has undergone evacuation of a large subdural hematoma. We anticipate cerebral edema. Critical care time 40 mins Chato Hankins MD Jun 26, 2017 16:23
--- NOTE | 2017-06-26 16:50 | PD.CONS ---
Consult Service Palliative Care Consult Requested By ANGÉLICA Roper/Dr. Higginbotham. Primary Care Physician Jonny Mcmillan MD Reason for Consultation a. To assist with evaluation and management of symptoms including: Shortness of breath. b. To assist medical decision maker(s) with: better understanding of current medical conditions; weighing benefits/burdens of medical treatment options; making medical treatment decisions. . HPI History of Present Illness Mrs. Uribe is a 77-year-old female with a medical history significant for history of right-sided meningioma, prior CVA, hypertension, hyperlipidemia, GERD , anxiety and mild dementia. Patient was found on the floor at home by her , EMS was called. Patient was found minimally responsive and was emergently intubated at the scene. CT revealing large subdural hematoma on the right measuring 2.5 cm, significant mass effect with 1.4 cm of [id number] shift. Abdominal/pelvic CT negative for acute process. Chest CT negative for acute process, descending thoracic aorta aneurysm measuring 3.[address] revealing significant degenerative changes at C5-C6 and C6-C7, negative for acute process. Trauma, Dr. Higginbotham consulted. Neurosurgery, Dr. España was consulted. Patient underwent right frontal temporal parietal decompressive craniectomy, evacuation of subdural hematoma, duroplasty as well as left frontal jeevan hole with placement of an intracranial pressure monitor. Critical care, Dr. Hankins was consulted for further medical management. Palliative care has been consulted for further clarifications of goals of care, emotional support given traumatic brain injury. Reviewed patient's past medical history and acute hospitalizations. Recent prior subdural hematoma, patient presented to ED on 04/16/17 following a fall and head trauma. Reports a multiple falls secondary to unstable gait. She went to [facility] ED where CT of the head revealed a moderate left subdural hematoma. However, patient was reported to leave AMA. Patient sustained a secondary fall hitting her head and reported progressive headaches with speech difficulties. Follow-up CT revealing large left chronic subdural hygroma with acute components with significant mass-effect and 7-8 mm midline shift. She was evaluated by neurosurgery, Dr. España and underwent left frontal craniotomy for evacuation of subdural hematoma. Patient was discharged home with home health on 04/20/17. Telephone conversation with patient's Hemanth Uribe. In this first visit, reviewed the role of palliative care in advanced illness in regards to emotional support as well as support surrounding goals of care and advance care planning. receptive to palliative care consultation. Obtained patient' s past medical history and psychosocial history. Reviewed events leading to this acute hospitalization, clinical course and current recommendations. Patient 's 's report that after discharge patient home in April, patient became progressively weaker requiring assistance with ADLs. also reporting that patient was having frequent episodes of confusion, restlessness and hallucinations. She followed up with neurosurgery as an outpatient, no focal findings on examination. However, reporting persistent headaches. She was referred for evaluation by orthopedic surgeon secondary to worsening knee pain. Reviewed that patient remains critically ill, overall prognosis is guarded given large subdural hemorrhage on an elderly patient with multiple comorbidities at baseline. Goal of therapy at this time is to continue aggressive management, allow a few days for clinical/neurological improvement. reports that patient's daughter Ameena may come to [place] this next Friday , son Aditya unable to come at this time. to meet with palliative care tomorrow 06/27 at 2 PM. Case reviewed in great detail with bedside RN Samina. Left message to neurosurgery Bonny Salmon to discuss case. . Function/Cognitive Trajectory Patient's 's report that after discharge patient home in April, patient became progressively weaker requiring assistance with ADLs. also reporting that patient was having frequent episodes of confusion, restlessness and hallucinations. Patient with episodes of bladder incontinence. Requiring standby assistance with dressing and bathing. Cognitive decline reported, mild dementia at baseline. . Review of Systems ROS Limitations: Clinical Condition, Intubated, Unresponsive Constitutional: COMPLAINS OF: Pain, Generalized weakness, DENIES: Fever, Change in appetite, Night Sweats Endocrine: DENIES: Abnorml menstrual pattern Eyes: DENIES: Eye inflammation Ears, nose, mouth, throat: DENIES: Nasal discharge, Oral lesions, Running Nose , Epistaxis Respiratory: DENIES: Cough, Wheezing, Shortness of breath Cardiovascular: DENIES: Chest pain, Orthopnea Gastrointestinal: COMPLAINS OF: Constipation, DENIES: Bloody stools, Nausea, Difficulty Swallowing Genitourinary: COMPLAINS OF: Urinary incontinence, DENIES: Hematuria Musculoskeletal: COMPLAINS OF: Muscle aches, Stiffness, Decreased range of motion Integumentary: DENIES: Rash Hematologic/Lymphatics: COMPLAINS OF: Bruising Immunologic/Allergic: DENIES: Eczema Neurologic: COMPLAINS OF: Headache, Poor Balance, DENIES: Speech Problems, Tremor Psychiatric: COMPLAINS OF: Anxiety, Confusion, Hallucinations, Agitation Past Family Social History Coded Allergies: No Known Allergies (Unverified , 06/25/17) Past Medical History Right sided meningioma CVA Hypertension Hyperlipidemia Hypothyroidism GERD Anxiety Prior acute subdural hematoma s/p craniotomy on 04/16/17 Chronic knee pain Anxiety . Past Surgical History Craniotomy and evacuation of subdural hematoma on 04/16/17 Appendectomy Aortic aneurysm repair Hysterectomy Cholecystectomy Tonsillectomy . Reported Medications Multi Vitamin Daily (Multiple Vitamin) 1 Tab Tab Vitamin P70-Saswr Acid (Cobalamine Combinations) 500-400 Mcg Tab 1 Tab PO DAILY Vitamin D3 Maximum Strength (Cholecalciferol) 5,000 Unit Cap 5,000 Units PO DAILY Levetiracetam 500 Mg Tab 500 Mg PO BID Hydrocodone-Acetaminophen 5-325 mg Tab 1 Tab PO Q4H PRN Furosemide 20 Mg Tab 20 Mg PO DAILY Baclofen 10 Mg Tab 10 Mg PO TID K-Tab (Potassium Chloride) 10 Meq Tab 10 Meq PO DAILY Temazepam 15 Mg Cap 15 Mg PO HS PRN Tramadol (Tramadol HCl) 50 Mg Tab 50 Mg PO Q6H PRN Omeprazole 20 Mg Cap Metoprolol Tartrate 75 Mg Tab 75 Mg PO BID Lisinopril 20 Mg Tab 20 Mg PO BID Levothyroxine (Levothyroxine Sodium) 50 Mcg Tab 50 Mcg PO DAILY Lamotrigine 100 Mg Tab 100 Mg PO BID Hydroxychloroquine (Hydroxychloroquine Sulfate) 200 Mg Tab 200 Mg PO BID Estradiol 0.5 Mg Tab 0.5 Mg PO DAILY Donepezil 10 Mg Tab 10 Mg PO HS Clonidine (Clonidine HCl) 0.2 Mg Tab 0.3 Mg PO TID Atorvastatin (Atorvastatin Calcium) 10 Mg Tab 10 Mg PO HS Amlodipine (Amlodipine Besylate) 10 Mg Tab 10 Mg PO DAILY Alprazolam 0.25 Mg Tab 0.25 Mg PO Q6H PRN . Current Medications Medications (Trade) Dose Ordered Sig/Felice Route Start Time Stop Time Status Last Admin Sodium Chloride 1,000 ml @ 100 mls/hr Q10H IV 06/25/17 12:00 06/26/17 08:00 (NS Flush) 2 ml UNSCH PRN IV FLUSH 06/25/17 11:15 (NS Flush) 2 ml BID IV FLUSH 06/25/17 21:00 06/26/17 08:39 (Zofran Inj) 4 mg Q6H PRN IV PUSH 06/25/17 11:15 (Protonix) 40 mg Q24H PO 06/25/17 12:00 06/26/17 12:11 (Narcan Inj) 0.4 mg UNSCH PRN IV PUSH 06/25/17 11:15 (Peridex 0.12% Liq) 15 ml BID@08,20 MT 06/25/17 20:00 06/26/17 08:00 Propofol 100 ml @ 0 mls/hr TITRATE PRN IV 06/25/17 16:45 06/26/17 09:51 Fentanyl Citrate 250 ml @ 5 mls/hr TITRATE PRN IV 06/25/17 16:45 06/26/17 13:28 Norepinephrine Bitartrate 4 mg/ Sodium Chloride 250 ml @ 7.5 mls/hr TITRATE PRN IV 06/25/17 17:30 (Brethine Inj) 1 mg UNSCH PRN SQ 06/25/17 17:30 Levetriacetam 500 mg/Sodium Chloride 105 ml @ 420 mls/hr Q12HR IV 06/25/17 20:00 06/26/17 09:15 Nicardipine HCl 25 mg/Sodium Chloride 250 ml @ 50 mls/hr TITRATE PRN IV 06/25/17 21:00 06/26/17 13:27 Sodium Chloride 500 ml @ 30 mls/hr CONTINUOUS IV 06/25/17 21:15 (Catapres-Tts 0.3 Mg Patch.7d) 1 patch Q7D T-DERMAL 06/26/17 12:00 (Lopressor Inj) 5 mg Q6H IV PUSH 06/26/17 11:00 06/26/17 13:37 (Norvasc) 10 mg DAILY PO 06/26/17 10:45 06/26/17 12:11 (Lipitor) 10 mg HS PO 06/26/17 21:00 (Lasix) 20 mg DAILY PO 06/26/17 10:45 06/26/17 12:11 (Synthroid) 50 mcg DAILY@0600 PO 06/26/17 10:45 06/26/17 12:11 (Prinivil) 20 mg BID PO 06/26/17 10:45 06/26/17 12:11 (KCl) 10 meq DAILY PO 06/26/17 10:45 06/26/17 12:15 Potassium Chloride 100 ml @ 50 mls/hr Q2H PRN IV 06/26/17 11:00 Potassium Chloride 100 ml @ 50 mls/hr Q2H PRN IV 06/26/17 11:00 (K-Lyte Cl Eff) 50 meq UNSCH PRN PO 06/26/17 11:00 Potassium Chloride 100 ml @ 25 mls/hr UNSCH PRN IV 06/26/17 11:00 Potassium Chloride 100 ml @ 50 mls/hr Q2H PRN IV 06/26/17 11:00 Magnesium Sulfate 4 gm/Sodium Chloride 100 ml @ 50 mls/hr UNSCH PRN IV 06/26/17 11:00 (Mag-Ox) 800 mg UNSCH PRN PO 06/26/17 11:00 Magnesium Sulfate 2 gm/Sodium Chloride 100 ml @ 50 mls/hr UNSCH PRN IV 06/26/17 11:00 (K-Phos) 2,000 mg Q4H PRN PO 06/26/17 11:00 Sodium Phosphate 30 mmol/Sodium Chloride 250 ml @ 42 mls/hr UNSCH PRN IV 06/26/17 11:00 (K-Phos) 2,000 mg UNSCH PRN PO/TUBE 06/26/17 11:00 Potassium Phosphate 30 mmol/ Sodium Chloride 260 ml @ 42 mls/hr UNSCH PRN IV 06/26/17 11:00 (K-Lyte Cl Eff) 50 meq ONCE PRN PO 06/26/17 11:00 06/26/17 18:00 Miscellaneous Information 1 Q7D T-DERMAL 07/03/17 12:00 Family History Patient has 2 children who are alive and well. . Substance Use Tobacco: Alcohol: Prescription med abuse: Illicits: Psychosocial History Patient originally from [place]. Moved to [place] 23 years ago. to current for the past 23 years. Has 2 biological children, daughter Ameena resides in [place], son Aditya resides in [place]. 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 . Spiritual/Cultural Factors Denominational melita. . Living Will: Copy in medical record Health Care Surrogate: Copy in medical record Health Care Surrogate(s): Patient's reports that advance directives has been completed. Pending copy. . Family/friends goals: Aggressive management, allow a few more days for clinical improvement. . Ethical and Legal Issues No ethical legal issues identified. . Physical Exam Vital Signs Date Time Temp Pulse Resp B/P (MAP) Pulse Ox O2 Delivery O2 Flow Rate FiO2 06/26/17 14:00 75 06/26/17 13:37 100 40 06/26/17 13:27 86 144/49 06/26/17 12:00 98.1 92 13 138/48 (78) 100 138/48 (78) 06/26/17 12:00 92 06/26/17 11:39 100 40 06/26/17 11:39 100 40 06/26/17 10:00 85 06/26/17 08:29 100 40 06/26/17 08:00 83 06/26/17 08:00 97.3 83 13 148/50 (82) 100 148/50 (82) 06/26/17 07:00 100 Mechanical Ventilator 42 06/26/17 06:24 83 147/53 06/26/17 06:00 79 06/26/17 04:10 100 40 06/26/17 04:00 97.7 77 13 136/52 (80) 100 06/26/17 04:00 77 06/26/17 02:00 77 06/26/17 01:09 100 50 06/26/17 00:00 77 06/26/17 00:00 96.0 77 13 130/54 (79) 100 06/25/17 23:12 82 143/59 06/25/17 22:00 76 06/25/17 21:14 100 50 06/25/17 21:14 100 50 06/25/17 20:00 98.1 88 13 146/61 (89) 100 06/25/17 19:00 100 Mechanical Ventilator 50 06/25/17 18:00 88 06/25/17 17:06 98 50 06/25/17 16:00 96.1 76 14 138/66 (90) 100 06/25/17 16:00 76 06/25/17 16:00 100 Mechanical Ventilator 40 Exam CONSTITUTIONAL/GENERAL: This is an adequately nourished elderly female in no apparent distress. TUBES/LINES/DRAINS: ETT, NG, Ortega catheter, PIV's, central line to right subclavian, 2 THANG drainage from head, ICP monitor. SKIN: No jaundice, rashes, or lesions. Ecchymoses on upper and lower extremities. Large area of ecchymosis to right arm. Skin temperature appropriate. Not diaphoretic. HEAD: Head wrapped with clean and dry dressing. 2 THANG drainages with serosanguineous output. ICP monitoring probe. EYES: No scleral icterus. No injection or drainage. Mild periorbital edema bilaterally. ENT: Unable to evaluate hearing secondary to clinical condition. Nose without bleeding or purulent drainage. Moist oral mucosa. NECK: Trachea midline. Supple, nontender. CARDIOVASCULAR: Regular rate and rhythm without murmurs. Peripheral pulses symmetric. RESPIRATORY/CHEST: Symmetric, unlabored respirations. Coarse bilaterally. Endotracheally intubated on mechanical ventilation. GASTROINTESTINAL: Abdomen soft, non-tender, nondistended. Bowel sounds present. GENITOURINARY: Without palpable bladder distension. Ortega catheter in place. MUSCULOSKELETAL: Extremities without clubbing, cyanosis. No mottling or clubbing. NEUROLOGICAL: Sedated. Unresponsive to verbal or tactile stimuli. PSYCHIATRIC: Unable to evaluate secondary to clinical condition. . Diagnostic Tests Laboratory Laboratory Tests Test 06/25/17 09:45 06/25/17 11:15 06/25/17 13:09 06/25/17 15:10 White Blood Count 12.8 TH/MM3 (4.0-11.0) 14.5 TH/MM3 (4.0-11.0) Red Blood Count 4.36 MIL/MM3 (4.00-5.30) 3.25 MIL/MM3 (4.00-5.30) Hemoglobin 12.0 GM/DL (11.6-15.3) 9.2 GM/DL (11.6-15.3) Bedside Hemoglobin 11.9 G/DL (11.6-15.3) Hematocrit 36.6 % (35.0-46.0) 26.9 % (35.0-46.0) Bedside Hematocrit 35.0 % (35.0-46.0) Mean Corpuscular Volume 83.9 FL (80.0-100.0) 82.8 FL (80.0-100.0) Mean Corpuscular Hemoglobin 27.4 PG (27.0-34.0) 28.4 PG (27.0-34.0) Mean Corpuscular Hemoglobin Concent 32.7 % (32.0-36.0) 34.3 % (32.0-36.0) Red Cell Distribution Width 15.4 % (11.6-17.2) 15.3 % (11.6-17.2) Platelet Count 188 TH/MM3 (150-450) 176 TH/MM3 (150-450) Mean Platelet Volume 8.3 FL (7.0-11.0) 8.3 FL (7.0-11.0) Neutrophils (%) (Auto) 68.7 % (16.0-70.0) 81.8 % (16.0-70.0) Lymphocytes (%) (Auto) 24.5 % (9.0-44.0) 10.5 % (9.0-44.0) Monocytes (%) (Auto) 6.2 % (0.0-8.0) 7.4 % (0.0-8.0) Eosinophils (%) (Auto) 0.0 % (0.0-4.0) 0.0 % (0.0-4.0) Basophils (%) (Auto) 0.6 % (0.0-2.0) 0.3 % (0.0-2.0) Neutrophils # (Auto) 8.8 TH/MM3 (1.8-7.7) 11.9 TH/MM3 (1.8-7.7) Lymphocytes # (Auto) 3.1 TH/MM3 (1.0-4.8) 1.5 TH/MM3 (1.0-4.8) Monocytes # (Auto) 0.8 TH/MM3 (0-0.9) 1.1 TH/MM3 (0-0.9) Eosinophils # (Auto) 0.0 TH/MM3 (0-0.4) 0.0 TH/MM3 (0-0.4) Basophils # (Auto) 0.1 TH/MM3 (0-0.2) 0.0 TH/MM3 (0-0.2) CBC Comment DIFF FINAL DIFF FINAL Differential Comment Prothrombin Time 11.7 SEC (9.8-11.6) Prothromb Time International Ratio 1.2 RATIO Activated Partial Thromboplast Time 19.6 SEC (24.3-30.1) Bedside Sodium 146 MMOL/L (137-144) Bedside Potassium 2.6 MMOL/L (3.6-5.0) Bedside Chloride 106 MMOL/L (102-111) Bedside Blood Urea Nitrogen 17 MG/DL (5-21) Bedside Creatinine 1.5 MG/DL (0.6-1.3) Bedside Glucose 229 MG/DL (68-110) Blood Gas Puncture Site DRAWN IN OR ART LINE Blood Gas Patient Temperature 98.6 98.6 Blood Gas HCO3 25 mmol/L (22-26) 22 mmol/L (22-26) Blood Gas Base Excess 0.7 mmol/L (-2-2) -1.4 mmol/L (-2-2) Blood Gas Oxygen Saturation 98 % (90-100) 98 % (90-100) Arterial Blood pH 7.41 (7.380-7.420) 7.47 (7.380-7.420) Arterial Blood Partial Pressure CO2 40 mmHg (38-42) 30 mmHg (38-42) Arterial Blood Partial Pressure O2 231 mmHg (61-120) 210 mmHg (61-120) Arterial Blood Oxygen Content 14.8 Vol % (12.0-20.0) 13.2 Vol % (12.0-20.0) Arterial Blood Carboxyhemoglobin 1.1 % (0-4) 0.9 % (0-4) Arterial Blood Methemoglobin 1.0 % (0-2) 1.2 % (0-2) Blood Gas Hemoglobin 10.4 G/DL (12.0-16.0) 9.2 G/DL (12.0-16.0) Oxygen Delivery Device OR VENTILATOR Blood Gas Ventilator Setting OR [facility]/AC Blood Gas Inspired Oxygen 50 % 50 % Blood Urea Nitrogen 18 MG/DL (7-18) Creatinine 1.41 MG/DL (0.50-1.00) Random Glucose 137 MG/DL (74-106) Calcium Level 7.5 MG/DL (8.5-10.1) Sodium Level 145 MEQ/L (136-145) Potassium Level 4.0 MEQ/L (3.5-5.1) Chloride Level 111 MEQ/L (98-107) Carbon Dioxide Level 24.3 MEQ/L (21.0-32.0) Anion Gap 10 MEQ/L (5-15) Estimat Glomerular Filtration Rate 32 ML/MIN (>89) Test 06/25/17 16:54 06/25/17 19:00 06/26/17 00:49 06/26/17 04:29 Blood Gas Puncture Site ART LINE ART LINE Blood Gas Patient Temperature 98.6 98.6 Blood Gas HCO3 22 mmol/L (22-26) 21 mmol/L (22-26) Blood Gas Base Excess -1.2 mmol/L (-2-2) -2.4 mmol/L (-2-2) Blood Gas Oxygen Saturation 98 % (90-100) 98 % (90-100) Arterial Blood pH 7.49 (7.380-7.420) 7.43 (7.380-7.420) Arterial Blood Partial Pressure CO2 29 mmHg (38-42) 33 mmHg (38-42) Arterial Blood Partial Pressure O2 214 mmHg (61-120) 176 mmHg (61-120) Arterial Blood Oxygen Content 12.9 Vol % (12.0-20.0) 12.5 Vol % (12.0-20.0) Arterial Blood Carboxyhemoglobin 1.3 % (0-4) 1.1 % (0-4) Arterial Blood Methemoglobin 0.7 % (0-2) 1.0 % (0-2) Blood Gas Hemoglobin 9.0 G/DL (12.0-16.0) 8.8 G/DL (12.0-16.0) Oxygen Delivery Device VENTILATOR VENTILATOR Blood Gas Ventilator Setting SEE COMMENTS PRVC/AC Blood Gas Inspired Oxygen 50 % 40 % Sodium Level 146 MEQ/L (136-145) 153 MEQ/L (136-145) Serum Osmolality 318 MOSM/KG (275-295) 318 MOSM/KG (275-295) Phosphorus Level 3.2 MG/DL (2.5-4.9) Magnesium Level 2.0 MG/DL (1.5-2.5) Test 06/26/17 05:00 06/26/17 11:00 White Blood Count 12.5 TH/MM3 (4.0-11.0) Red Blood Count 3.02 MIL/MM3 (4.00-5.30) Hemoglobin 8.5 GM/DL (11.6-15.3) Hematocrit 25.4 % (35.0-46.0) Mean Corpuscular Volume 84.1 FL (80.0-100.0) Mean Corpuscular Hemoglobin 28.1 PG (27.0-34.0) Mean Corpuscular Hemoglobin Concent 33.4 % (32.0-36.0) Red Cell Distribution Width 16.1 % (11.6-17.2) Platelet Count 159 TH/MM3 (150-450) Mean Platelet Volume 8.6 FL (7.0-11.0) Neutrophils (%) (Auto) 72.7 % (16.0-70.0) Lymphocytes (%) (Auto) 15.8 % (9.0-44.0) Monocytes (%) (Auto) 10.8 % (0.0-8.0) Eosinophils (%) (Auto) 0.0 % (0.0-4.0) Basophils (%) (Auto) 0.7 % (0.0-2.0) Neutrophils # (Auto) 9.1 TH/MM3 (1.8-7.7) Lymphocytes # (Auto) 2.0 TH/MM3 (1.0-4.8) Monocytes # (Auto) 1.3 TH/MM3 (0-0.9) Eosinophils # (Auto) 0.0 TH/MM3 (0-0.4) Basophils # (Auto) 0.1 TH/MM3 (0-0.2) CBC Comment DIFF FINAL Differential Comment Blood Urea Nitrogen 11 MG/DL (7-18) Creatinine 1.26 MG/DL (0.50-1.00) Random Glucose 129 MG/DL (74-106) Total Protein 5.2 GM/DL (6.4-8.2) Calcium Level 7.4 MG/DL (8.5-10.1) Phosphorus Level 3.0 MG/DL (2.5-4.9) 2.5 MG/DL (2.5-4.9) Magnesium Level 2.0 MG/DL (1.5-2.5) Sodium Level 154 MEQ/L (136-145) 155 MEQ/L (136-145) Potassium Level 3.4 MEQ/L (3.5-5.1) Chloride Level 122 MEQ/L (98-107) Carbon Dioxide Level 22.4 MEQ/L (21.0-32.0) Anion Gap 10 MEQ/L (5-15) Estimat Glomerular Filtration Rate 37 ML/MIN (>89) Serum Osmolality 320 MOSM/KG (275-295) 319 MOSM/KG (275-295) Protein Corrected Calcium 8.5 MG/DL (8.5-10.1) Result Diagram: 06/26/17 0500 06/26/17 1100 Imaging Last Impressions Pelvis X-Ray 06/25/17946 Signed Impressions: Service Date/Time: Sunday, June 25, 2017 09:46 - CONCLUSION: Artifact, negative for acute process Benito Dai MD FACR Head CT 06/25/17946 Signed Impressions: Service Date/Time: Sunday, June 25, 2017 10:00 - CONCLUSION: 1. Large subdural hematoma on the right measuring 2.1 cm in thickness. There is significant mass effect with 1.4 cm of right to left falcine shift. There is effacement of the perimesencephalic cisterns indicating some degree of downward herniation. There is fairly diffuse edema within the white matter. 2. Small rim of extra-axial hemorrhage along the left hemisphere as well measuring approximately 1-2 mm in thickness. 3. Punctate areas of intraparenchymal hemorrhage in the left occipital cortex and medial aspect of the right temporal cortex. John Dai MD Chest X-Ray 06/25/17946 Signed Impressions: Service Date/Time: Sunday, June 25, 2017 09:46 - CONCLUSION: Satisfactory endotracheal tube positioning. Grossly negative trauma chest Martin Altamirano MD Chest CT 06/25/17946 Signed Impressions: Service Date/Time: Sunday, June 25, 2017 10:05 - CONCLUSION: 1. There is an abnormal appearance of the ascending aorta suggesting previous repair of the aortic root possibly secondary to either aneurysmal dilation or an old dissection. There is no evidence of rupture of the aortic root. The arch is aneurysmal at 4.1 cm. The descending thoracic aorta is aneurysmal at 3.5 cm. 2. The lungs are clear. John Dai MD Cervical Spine CT 06/25/17946 Signed Impressions: Service Date/Time: Sunday, June 25, 2017 10:00 - CONCLUSION: Significant degenerative changes at C5-C6 and C6-C7. Negative for acute fracture. Benito Dai MD FACR Abdomen/Pelvis CT 06/25/17 0000 Signed Impressions: Service Date/Time: Sunday, June 25, 2017 10:05 - CONCLUSION: Negative for acute traumatic injury. Extensive atherosclerotic vascular calcifications. 4 cm cystic mass right adnexa region Benito Dai MD FACR Procedures * 06/25/17: Endotracheal intubation * 06/25/17: Left frontal bur hole with placement of an intracranial pressure monitor. * 06/25/17: Right frontal temporal parietal decompressive cranictomy, evacuation of subdural hematoma, duroplasty * 06/25/17: Left subclavian central line placement * 06/25/17: Endotracheal tube exchange . Patient/Family Conference Present at Family Conference: Hemanth Uribe . Family Conference Time (mins): 44 Family Conference Location: Telephone Issues Discussed: * Palliative care role, purpose, approach * Additional medical, psychosocial, and spiritual history * Patients general health, functional status, and cognitive changes in the months leading up to the current hospitalization * Patient/family understanding of the current medical problems * Patient/family understanding of prognosis -guarded prognosis * Patients goals of care as best understood from advance directives and/or conversations and/or values * Questions answered to the best of my ability * Palliative care contact information provided . Assessment and Plan Disease Oriented Problem List: (1) Traumatic subdural hematoma (2) Traumatic brain injury (3) Respiratory failure (4) Hypertension (5) Chronic kidney disease (6) History of CVA (cerebrovascular accident) (7) History of meningioma Symptom Scale: (1) Debility 0-10 Scale: Unable to quantify (2) Dyspnea 0-10 Scale: Unable to quantify Pertinent Non-Medical Issues Psychosocial: Patient originally from [place]. Moved to [place] 23 years ago. to current for the past 23 years. Has 2 biological children, daughter Ameena resides in [place], son Aditya resides in [place]. 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 Spiritual: Denominational melita. Legal: Advance directives reported as completed. Pending copy. Ethical issues impacting care: No ethical issues identified. . Important Contacts Hemanth , . . Prognosis Mrs. Uribe is a 77-year-old female with a medical history significant for history of right-sided meningioma, prior CVA, hypertension, hyperlipidemia, GERD , anxiety and mild dementia. Patient was found on the floor at home by her , EMS was called. CT revealing large subdural hematoma, she underwent right frontal temporal parietal decompressive craniectomy, evacuation of subdural hematoma, duroplasty as well as left frontal jeevan hole with placement of an intracranial pressure monitor. Patient with recent previous subdural hematoma status post craniotomy for evacuation on 04/16/17. Prognosis is guarded at this time given massive head trauma/traumatic brain injury, multiple comorbidities, physical deconditioning and advanced age. . Code Status: Full Code Plan * CODE STATUS: Full code. * HEALTHCARE DECISION-MAKING: Patient unable to participating medical decision making secondary to clinical condition. Not likely to regain capacity given severity of brain injury. Advanced directives reported as completed, Hemanth Uribe presents himself as healthcare surrogate decision maker. Pending copy of advance directives. * GOALS OF CARE: Aggressive at this time, electing to allow a few more days for clinical/neurological improvement. Receptive to palliative care follow -ups for goals of care conversation once prognosis is determined, will follow- up with neurosurgery for guidance. Palliative care to met with patient's on 06/27 at 2:00 PM for emotional support and discuss current medical management. * SYMPTOMS: = Dyspnea: Patient remains endotracheally intubated on mechanical ventilation. As per trauma team, anticipated prolonged ventilation support given devastating brain injury. = Debility: Progressive. Worsen since April 2017 status post craniotomy for evacuation of subdural hematoma. * Case discussed with bedside RN Samina, telephone call to neurosurgery -left message to MILAGROS Oliver. * Palliative care contact information has been provided to patient and family. * Palliative care will continue to follow up for further clarification of goals of care as patient's clinical course continues to evolve. . Time Spent Total Floor Time (mins): 81 (Total time to include reviewing summarization of available medical records to include prior acute hospitalizations, physical exam , goals of care conversation with patient's , case discussion with bedside RN.) >50% Counseling/Coord of Care: Yes Thank you for the opportunity to participate in the care of Ms. Uribe. Attestation To help prompt me to consider important information that might be impacting today's encounter and assessment, information from prior notes written by myself or my colleagues may have been "brought forward" into today's note. My signature on this note, however, is an attestation that I personally performed the exam, history, and/or decision-making noted today, and, unless otherwise indicated, the interactions with patient, family, and staff as well as the review of records all occurred today. I also attest that the listed assessment and stated plan reflect my best clinical judgment today based on the combination of historical information, prior notes, and today's exam/ interactions. When time spent is documented, it refers only to time spent today by the signer, or if indicated, combined time spent today by collaborating physician/nurse practitioner. Jazlyn Cole Jun 26, 2017 16:50
--- NOTE | 2017-06-26 17:28 | HHI.NSPN ---
(Bonny Salmon) Note Status Status: Progress Note (Bonny Salmon) Interval History Interval History Ms. Uribe is an adult female who was brought to [facility] as a trauma alert with a severe traumatic brain injury. She had a GCS of 4 with a right pupil dilated and fixed and anisocoria. CT of the brain showed a right hemispheric large acute subdural hematoma with mass effect and midline shift. She underwent an emergent right frontal temporal parietal decompressive craniotomy, evacuation of subdural hematoma, duroplasty with placement of ICP monitor on Jun 25, 2017 for large right subdural hematoma 06/26: intubated, sedated, ICPs currently 10. pupils now 3 mm bilateral (Bonny Salmon) Labs, Micro, & Vital Signs Results Date Time Temp Pulse Resp B/P (MAP) Pulse Ox O2 Delivery O2 Flow Rate FiO2 06/26/17 14:00 75 06/26/17 13:37 100 40 06/26/17 13:27 86 144/49 06/26/17 12:00 98.1 92 13 138/48 (78) 100 138/48 (78) 06/26/17 12:00 92 06/26/17 11:39 100 40 06/26/17 11:39 100 40 06/26/17 10:00 85 06/26/17 08:29 100 40 06/26/17 08:00 83 06/26/17 08:00 97.3 83 13 148/50 (82) 100 148/50 (82) 06/26/17 07:00 100 Mechanical Ventilator 42 06/26/17 06:24 83 147/53 06/26/17 06:00 79 06/26/17 04:10 100 40 06/26/17 04:00 97.7 77 13 136/52 (80) 100 06/26/17 04:00 77 06/26/17 02:00 77 06/26/17 01:09 100 50 06/26/17 00:00 77 06/26/17 00:00 96.0 77 13 130/54 (79) 100 06/25/17 23:12 82 143/59 06/25/17 22:00 76 06/25/17 21:14 100 50 06/25/17 21:14 100 50 06/25/17 20:00 98.1 88 13 146/61 (89) 100 06/25/17 19:00 100 Mechanical Ventilator 50 06/25/17 18:00 88 Constitutional Vital Signs Date Time Temp Pulse Resp B/P (MAP) Pulse Ox O2 Delivery O2 Flow Rate FiO2 06/26/17 14:00 75 06/26/17 13:37 100 40 06/26/17 13:27 86 144/49 06/26/17 12:00 98.1 92 13 138/48 (78) 100 138/48 (78) 06/26/17 12:00 92 06/26/17 11:39 100 40 06/26/17 11:39 100 40 06/26/17 10:00 85 06/26/17 08:29 100 40 06/26/17 08:00 83 06/26/17 08:00 97.3 83 13 148/50 (82) 100 148/50 (82) 06/26/17 07:00 100 Mechanical Ventilator 42 06/26/17 06:24 83 147/53 06/26/17 06:00 79 06/26/17 04:10 100 40 06/26/17 04:00 97.7 77 13 136/52 (80) 100 06/26/17 04:00 77 06/26/17 02:00 77 06/26/17 01:09 100 50 06/26/17 00:00 77 06/26/17 00:00 96.0 77 13 130/54 (79) 100 06/25/17 23:12 82 143/59 06/25/17 22:00 76 06/25/17 21:14 100 50 06/25/17 21:14 100 50 06/25/17 20:00 98.1 88 13 146/61 (89) 100 06/25/17 19:00 100 Mechanical Ventilator 50 06/25/17 18:00 88 (Bonny Salmon) Physical Exam Ms. Uribe is intubated and sedated. ICP = 10 Right flap is soft, Wounds clean and dry. Cranial Nerves: Pupils 2-3 mm bilaterally. Motor: His muscle tone and bulk are normal. well sedated, no spontaneous movements (Bonny Salmon) Medications Current Medications Current Medications Medications (Trade) Dose Ordered Sig/Felice Route PRN Reason Start Time Stop Time Status Last Admin Dose Admin Sodium Chloride 1,000 ml @ 100 mls/hr Q10H IV 06/25/17 12:00 06/26/17 08:00 Sodium Chloride (NS Flush) 2 ml UNSCH PRN IV FLUSH FLUSH AFTER USING IV ACCESS 06/25/17 11:15 Sodium Chloride (NS Flush) 2 ml BID IV FLUSH 06/25/17 21:00 06/26/17 08:39 Ondansetron HCl (Zofran Inj) 4 mg Q6H PRN IV PUSH NAUSEA OR VOMITING 06/25/17 11:15 Pantoprazole Sodium (Protonix) 40 mg Q24H PO 06/25/17 12:00 06/26/17 12:11 Naloxone HCl (Narcan Inj) 0.4 mg UNSCH PRN IV PUSH SEE LABEL COMMENTS 06/25/17 11:15 Chlorhexidine Gluconate (Peridex 0.12% Liq) 15 ml BID@08,20 MT 06/25/17 20:00 06/26/17 08:00 Propofol 100 ml @ 0 mls/hr TITRATE PRN IV SEDATION 06/25/17 16:45 06/26/17 09:51 Fentanyl Citrate 250 ml @ 5 mls/hr TITRATE PRN IV SEDATION 06/25/17 16:45 06/26/17 13:28 Norepinephrine Bitartrate 4 mg/ Sodium Chloride 250 ml @ 7.5 mls/hr TITRATE PRN IV Blood pressure management 06/25/17 17:30 Terbutaline Sulfate (Brethine Inj) 1 mg UNSCH PRN SQ For Extravasation 06/25/17 17:30 Levetriacetam 500 mg/Sodium Chloride 105 ml @ 420 mls/hr Q12HR IV 06/25/17 20:00 06/26/17 09:15 Nicardipine HCl 25 mg/Sodium Chloride 250 ml @ 50 mls/hr TITRATE PRN IV Blood Pressure Management 06/25/17 21:00 06/26/17 13:27 Sodium Chloride 500 ml @ 30 mls/hr CONTINUOUS IV 06/25/17 21:15 Clonidine (Catapres-Tts 0.3 Mg Patch.7d) 1 patch Q7D T-DERMAL 06/26/17 12:00 06/26/17 16:25 Metoprolol Tartrate (Lopressor Inj) 5 mg Q6H IV PUSH 06/26/17 11:00 06/26/17 13:37 Amlodipine Besylate (Norvasc) 10 mg DAILY PO 06/26/17 10:45 06/26/17 12:11 Atorvastatin Calcium (Lipitor) 10 mg HS PO 06/26/17 21:00 Furosemide (Lasix) 20 mg DAILY PO 06/26/17 10:45 06/26/17 12:11 Levothyroxine Sodium (Synthroid) 50 mcg DAILY@0600 PO 06/26/17 10:45 06/26/17 12:11 Lisinopril (Prinivil) 20 mg BID PO 06/26/17 10:45 06/26/17 12:11 Potassium Chloride (KCl) 10 meq DAILY PO 06/26/17 10:45 06/26/17 12:15 Potassium Chloride 100 ml @ 50 mls/hr Q2H PRN IV For Potassium 2.8 - 3.2 mEq/L 06/26/17 11:00 Potassium Chloride 100 ml @ 50 mls/hr Q2H PRN IV For Potassium 2.8 - 3.2 mEq/L 06/26/17 11:00 Potassium Bicarb/ Potassium Chloride (K-Lyte Cl Eff) 50 meq UNSCH PRN PO For Potassium 3.3 - 3.5 mEq/L 06/26/17 11:00 Potassium Chloride 100 ml @ 25 mls/hr UNSCH PRN IV For Potassium 3.3 - 3.5 mEq/L 06/26/17 11:00 Potassium Chloride 100 ml @ 50 mls/hr Q2H PRN IV For Potassium 3.3 - 3.5 mEq/L 06/26/17 11:00 Magnesium Sulfate 4 gm/Sodium Chloride 100 ml @ 50 mls/hr UNSCH PRN IV For Magnesium 0.9 - 1.1 mg/dL 06/26/17 11:00 Magnesium Oxide (Mag-Ox) 800 mg UNSCH PRN PO For Magnesium 1.2 - 1.6 mg/dL 06/26/17 11:00 Magnesium Sulfate 2 gm/Sodium Chloride 100 ml @ 50 mls/hr UNSCH PRN IV For Magnesium 1.2 - 1.6 mg/dL 06/26/17 11:00 Potassium Phosphate (K-Phos) 2,000 mg Q4H PRN PO For Phosphorus < 2.5 mg/dL 06/26/17 11:00 Sodium Phosphate 30 mmol/Sodium Chloride 250 ml @ 42 mls/hr UNSCH PRN IV For Phosphorus < 2.5 mg/dL 06/26/17 11:00 Potassium Phosphate (K-Phos) 2,000 mg UNSCH PRN PO/TUBE SEE LABEL COMMENTS 06/26/17 11:00 Potassium Phosphate 30 mmol/ Sodium Chloride 260 ml @ 42 mls/hr UNSCH PRN IV SEE LABEL COMMENTS 06/26/17 11:00 Potassium Bicarb/ Potassium Chloride (K-Lyte Cl Eff) 50 meq ONCE PRN PO Electrolyte replacement 06/26/17 11:00 06/26/17 18:00 Miscellaneous Information 1 Q7D T-DERMAL 07/03/17 12:00 (Bonny Salmon) Medical Decision Making MDM Remarks 77 y/o female s/p emergent right frontal temporal parietal decompressive craniotomy, evacuation of subdural hematoma, duroplasty with placement of ICP monitor 06/25/17 (Bonny Salmon) Plan Plan Remarks cont ICP monitoring cont critical care management nonchemical dvt prophylaxis serial neuro checks (Bonny Salmon) Attending Statement The exam, history, and the medical decision-making described in the above note were completed with the assistance of the mid-level provider. I reviewed and agree with the findings presented. I attest that I had a [id number] encounter with the patient on the same day, and personally performed and documented my assessment and findings in the medical record. (Matti España MD) Bonny Salmon Jun 26, 2017 17:28 Matti España MD Jun 29, 2017 13:56
[2017-06-26 17:58] LABS: MAGNESIUM 1.8 MG/DL (1.5-2.5); PHOSPHORUS 2.4 MG/DL (2.5-4.9)
[2017-06-26] MEDS: ATORVASTATIN 10 MG TAB PO SCH (22:35)
[2017-06-27] VITALS (19 sets, daily range): BP systolic 91–159; BP diastolic 66–87; PULSE 82–120; RESP 10–14; TEMP 97.6–98.3; O2SAT 100
[2017-06-27] MEDS: niCARdipine 25 MG/NS 250 ML Vial2Bag or IV room IV PRN ×6 (01:38→18:56)
--- NOTE | 2017-06-27 04:39 | RADRPT ---
EXAM DATE/TIME: 06/27/2017 03:02 [place] COMPARISON: CT THORAX W CONTRAST, June 25, 2017, 10:05. CHEST SINGLE AP, June 25, 2017, 16:45. CHEST SINGLE A P, June 25, 2017, 18:09. INDICATIONS : Follow up trauma. MEDICAL HISTORY : None. SURGICAL HISTORY : CABG. ENCOUNTER: Subsequent ACUITY: 3 days PAIN SCORE: Non-responsive. LOCATION: Bilateral chest FINDINGS: A single AP semierect portable view of the chest was obtained and again demonstrates the endotracheal tube in place with the tip approximately 2 cm above the nick. There has been interval placement of a nasogastric tube is seen coursing through the esophagus into the stomach. The right subclavian domenic tral venous line remains in place. The heart size remains mildly prominent the patient is status post median sternotomy. Atherosclerotic changes are again noted involving the aorta with dilatation. Ther e is no visualized pneumothorax. There are no confluent infiltrates. CONCLUSION: No significant change. Roderick Poole MD on June 27, 2017 at 4:36 Board Certified Radiologist. This report was verified electronically.
[2017-06-27 04:49] LABS: AUTOMATED NEUTROPHIL # 15.1 TH/MM3 (1.8-7.7); BASOPHIL # 0.1 TH/MM3 (0-0.2); BASOPHIL % 0.7 % (0.0-2.0); HEMATOCRIT 24.5 % (35.0-46.0); HEMOGLOBIN 7.8 GM/DL (11.6-15.3); LYMPH % 10.2 % (9.0-44.0); LYMPHOCYTE # 1.9 TH/MM3 (1.0-4.8); MEAN CELL VOLUME 85.8 FL (80.0-100.0); MEAN CORPUSCULAR HEMOGLOBIN 27.3 PG (27.0-34.0); MEAN CORPUSCULAR HGB CONC 31.8 % (32.0-36.0); MEAN PLATELET VOLUME 8.5 FL (7.0-11.0); MONO % 9.9 % (0.0-8.0); MONOCYTE # 1.9 TH/MM3 (0-0.9); NEUT % 79.2 % (16.0-70.0); PLATELET COUNT 194 TH/MM3 (150-450); RED BLOOD COUNT 2.86 MIL/MM3 (4.00-5.30); RED CELL DISTRIBUTION WIDTH 16.3 % (11.6-17.2)
[2017-06-27 05:19] LABS: BICARBONATE 21.7 MEQ/L (21.0-32.0); CALCIUM 7.8 MG/DL (8.5-10.1); CREATININE 1.49 MG/DL (0.50-1.00); PHOSPHORUS 3.2 MG/DL (2.5-4.9)
[2017-06-27] MEDS: SODIUM CHLOR 0.9% 1000 ML INJ 1,000 ML IV SCH (06:03)
[2017-06-27] MEDS: METOPROLOL TARTRATE 5 MG/5 ML VIAL IV PUSH SCH ×4 (06:03→22:27)
[2017-06-27] MEDS: LEVOTHYROXINE SODIUM 50 MCG TAB PO SCH (06:04)
[2017-06-27] MEDS: CHLORHEXIDINE 0.12% (ORAL KIT) 15 ML CUP MT SCH ×2 (07:38→19:22)
--- NOTE | 2017-06-27 08:20 | HHI.CCPN ---
Subjective Remarks/Hospital Course Elderly woman found down at home after several hours. Brought to ED largely unresponsive. CT head reveal large traumatic SDH. Taken to OR for evacuation. Seen on arrival her to [facility] 06/26: Gas exchange acceptable. ICP control has required numerous ventilatory and osmolal manipulations. : Opens eyes, osmolality well concentrated. BP controlled. Objective Vital Signs Date Time Temp Pulse Resp B/P (MAP) Pulse Ox O2 Delivery O2 Flow Rate FiO2 06/27/17 06:00 82 06/27/17 05:29 100 40 06/27/17 04:00 97.7 12 136/68 (90) 06/26/17 19:00 Mechanical Ventilator Intake and Output 06/27/17 06/27/17 06/28/17 08:00 16:00 00:00 Intake Total 1250 ml Output Total 440 ml Balance 810 ml Result Diagram: 06/27/17 0440 06/27/17 0440 Other Results Laboratory Tests Test 06/27/17 04:45 Blood Gas Puncture Site RT FEMORAL Blood Gas Patient Temperature 98.6 Blood Gas HCO3 19 mmol/L (22-26) Blood Gas Base Excess -5.9 mmol/L (-2-2) Blood Gas Oxygen Saturation 97 % (90-100) Arterial Blood pH 7.31 (7.380-7.420) Arterial Blood Partial Pressure CO2 40 mmHg (38-42) Arterial Blood Partial Pressure O2 161 mmHg (61-120) Arterial Blood Oxygen Content 12.0 Vol % (12.0-20.0) Arterial Blood Carboxyhemoglobin 1.1 % (0-4) Arterial Blood Methemoglobin 0.9 % (0-2) Blood Gas Hemoglobin 8.5 G/DL (12.0-16.0) Oxygen Delivery Device VENTILATOR Blood Gas Ventilator Setting Blood Gas Inspired Oxygen 40 % Objective Remarks Head: Wrapped in dry clean dressing. Intracranial pressure bolt in place. Neck: Supple. Orally intubated with 6.5 mm endotracheal tube. Exchanged for 8.0 tube. Lungs: Clear bilaterally. No adventitious sounds. Good bilateral air movement. Heart: Regular rate and rhythm. Normal S1-S2. No JVD Abdomen: Soft, nondistended, no guarding, present bowel sounds. Extremities: Warm: Well perfused, No edema. Neuro: Opens eyes. Pupils 2 mm, reactive. Lightly sedated for ICP control and vent synchrony. A/P Assessment and Plan Assessment: 1. Traumatic subdural hematoma 2. Traumatic brain injury 3. Respiratory failure 4. Coma Plan: 1. PRVC ventilator mode. PEEP 5. SBTs 10/5. 2. Monitor and tidal CO2 and maintain PC02 and range 35-40 torr 3. Correlate end-tidal carbon dioxide with arterial blood gas 4. Insert central venous access line 5. Initiate 3% saline intravenous infusion at 30 cc/h 6. Check serum sodium and osmolality every 6 hours. Maintain osmolality and range 310-320 7. Pepcid for GI ulcer prophylaxis 8. SCD for DVT prophylaxis 9. Monitor intracranial pressure 10. Infuse 23% saline for intracranial pressure greater than 20 if osmolality less than 310. 11. Propofol and fentanyl sedation to control intracranial pressure 12. Head of bed elevated at least 30. 13. Decrease 3% rate to 10. Overall impression: This patient is critically ill after a severe traumatic head injury having presented with a profound neurologic deficit. She has undergone evacuation of a large subdural hematoma. We anticipate cerebral edema but so far ICP control has been acceptable. Critical care time 38 mins Chato Hankins MD Jun 27, 2017 08:20
[2017-06-27] MEDS: SODIUM CHLORIDE 0.9% FLUSH 10 ML FLUSH IV FLUSH SCH ×2 (09:00→20:01)
[2017-06-27] MEDS: POTASSIUM CHLORIDE 10 MEQ CONTROLLED RELEASE TAB PO SCH (09:14)
[2017-06-27] MEDS: LISINOPRIL 20 MG TAB PO SCH ×2 (09:15→20:02)
[2017-06-27] MEDS: levETIRAcetam INJ 500 MG in SODIUM CHLORIDE 0.9% INJ 100 ML IV SCH ×2 (09:16→20:01)
[2017-06-27] MEDS: FUROSEMIDE 20 MG/2 ML VIAL IV PUSH SCH (09:43)
[2017-06-27] MEDS: PANTOPRAZOLE SOD 40 MG DELAYED RELEASE TAB PO SCH (11:31)
--- NOTE | 2017-06-27 15:06 | HHI.HCPN ---
Reason for visit a. To assist with evaluation and management of symptoms including: Shortness of breath. b. To assist medical decision maker(s) with: better understanding of current medical conditions; weighing benefits/burdens of medical treatment options; making medical treatment decisions. . Subjective/Interval History Palliative care follow-up for further clarification of goals of care. Patient seen in surgical ICU. Remains endotracheally intubated on mechanical ventilation. Of sedation. Bedside RN reports that patient is following some simple commands. During my visit, patient briefly opening eyes to verbal stimuli. She remains on Cardene drip to control her blood pressure. CPAP trial earlier this morning, she was able to tolerate approximately 30 minutes. She is back on full support. Chest x-ray today revealing no significant changes. Laboratory workup today revealing persistent leukocytosis 19.0, Hgb 7.8 from 8.5 yesterday, platelet count 194. BUN/creatinine 18/1.49. She is afebrile, stable hemodynamically. Currently on 40% FiO2. Met with patient's Hemanth Uribe. Medical update provided. reports that after patient's brain bleed status post decompressive craniotomy in April, patient's quality of life has been "very poor". reports that patient was frequently confused, requiring increasing assistance with ADLs. verbalized feeling guilty regarding patient's condition as patient "made [him] promise that [he] would not let her be on life support again ". Reviewed recommendations from top ironer and neurosurgery to allow a few more days for clinical improvement, medically extubate if tolerated. Patient's electing to change CODE STATUS to intubation only, NO cardiac code. CODE STATUS to be changed to DNR/DNI if patient is medically extubated. also requesting no blood products or additional invasive procedures/ interventions such as tracheostomy or PEG tube placement. Palliative care to meet with patient's on Friday 06/30 at 10 AM for follow-up. Case discussed with bedside RN and Dr. Hankins. . Family/friend interactions See interval note. . Advance Directives Living Will: Copy in medical record Health Care Surrogate: Copy in medical record Advance Directive Specifics Date completed: 06/23/1995. . Health Care Surrogate(s): Patient has elected her Hemanth Uribe as healthcare surrogate decision maker, alternate surrogate is daughter Elena Gardenia Benevento. . Documented care wishes: Living will with standard verbiage as it pertains to terminal condition. . Significant change in goals: No cardiac code. Allow a few more days for clinical improvement, no additional invasive interventions/procedures, no blood products. . Objective Vital Signs Date Time Temp Pulse Resp B/P (MAP) Pulse Ox O2 Delivery O2 Flow Rate FiO2 06/27/17 14:00 96 06/27/17 12:00 92 06/27/17 12:00 40 06/27/17 12:00 97.6 95 10 151/66 (94) 100 91/87 (88) 06/27/17 11:43 100 40 06/27/17 11:43 100 40 06/27/17 10:41 91 151/67 06/27/17 10:00 96 06/27/17 08:21 40 06/27/17 08:21 100 40 06/27/17 08:00 97.8 93 10 157/69 (98) 100 103/67 (79) 06/27/17 08:00 96 06/27/17 08:00 40 06/27/17 07:00 100 Mechanical Ventilator 40 06/27/17 06:00 82 06/27/17 05:29 100 40 06/27/17 04:37 100 40 06/27/17 04:00 97.7 106 12 136/68 (90) 100 06/27/17 04:00 40 06/27/17 04:00 82 06/27/17 02:00 98 06/27/17 01:38 90 151/70 06/27/17 00:21 100 40 06/27/17 00:00 109 06/27/17 00:00 97.7 109 12 147/68 (94) 100 06/26/17 23:50 92 150/65 06/26/17 22:00 96 06/26/17 20:00 102 06/26/17 20:00 100 40 06/26/17 20:00 97.9 102 12 146/70 (95) 100 06/26/17 20:00 100 40 06/26/17 20:00 40 06/26/17 19:00 100 Mechanical Ventilator 40 06/26/17 18:22 100 40 06/26/17 18:17 109 131/87 06/26/17 18:00 104 06/26/17 16:00 75 06/26/17 16:00 97.7 81 12 144/47 (79) 100 144/47 (79) Intake & Output 06/27/17 06/27/17 07:00 19:00 Intake Total 1355 ml Output Total 440 ml Balance 915 ml IV Total 1355 ml Output Urine Total 300 ml Gastric Drainage Total 100 ml Drainage Total 40 ml # Bowel Movements 0 Physical Exam CONSTITUTIONAL/GENERAL: This is an adequately nourished elderly female in no apparent distress. TUBES/LINES/DRAINS: ETT, NG, Ortega catheter, PIV's, central line to right subclavian, 2 THANG drainage from head, ICP monitor. SKIN: No jaundice, rashes, or lesions. Ecchymoses on upper and lower extremities. Large area of ecchymosis to right arm. Skin temperature appropriate. Not diaphoretic. HEAD: Head wrapped with clean and dry dressing. 2 THANG drainages with serosanguineous output. ICP monitoring probe. EYES: No scleral icterus. No injection or drainage. Mild periorbital edema bilaterally. ENT: Unable to evaluate hearing secondary to clinical condition. Nose without bleeding or purulent drainage. Moist oral mucosa. NECK: Trachea midline. Supple, nontender. CARDIOVASCULAR: Regular rate and rhythm without murmurs. Peripheral pulses symmetric. RESPIRATORY/CHEST: Symmetric, unlabored respirations. Coarse bilaterally. Endotracheally intubated on mechanical ventilation. GASTROINTESTINAL: Abdomen soft, non-tender, nondistended. Bowel sounds present. GENITOURINARY: Without palpable bladder distension. Ortega catheter in place. MUSCULOSKELETAL: Extremities without clubbing, cyanosis. No mottling or clubbing. NEUROLOGICAL: Briefly opening eyes to verbal stimuli. PSYCHIATRIC: Unable to evaluate secondary to clinical condition. . Diagnostic Tests Laboratory Laboratory Tests Test 06/25/17 09:45 06/25/17 11:15 06/25/17 13:09 06/25/17 15:10 White Blood Count 12.8 TH/MM3 (4.0-11.0) 14.5 TH/MM3 (4.0-11.0) Red Blood Count 4.36 MIL/MM3 (4.00-5.30) 3.25 MIL/MM3 (4.00-5.30) Hemoglobin 12.0 GM/DL (11.6-15.3) 9.2 GM/DL (11.6-15.3) Bedside Hemoglobin 11.9 G/DL (11.6-15.3) Hematocrit 36.6 % (35.0-46.0) 26.9 % (35.0-46.0) Bedside Hematocrit 35.0 % (35.0-46.0) Mean Corpuscular Volume 83.9 FL (80.0-100.0) 82.8 FL (80.0-100.0) Mean Corpuscular Hemoglobin 27.4 PG (27.0-34.0) 28.4 PG (27.0-34.0) Mean Corpuscular Hemoglobin Concent 32.7 % (32.0-36.0) 34.3 % (32.0-36.0) Red Cell Distribution Width 15.4 % (11.6-17.2) 15.3 % (11.6-17.2) Platelet Count 188 TH/MM3 (150-450) 176 TH/MM3 (150-450) Mean Platelet Volume 8.3 FL (7.0-11.0) 8.3 FL (7.0-11.0) Neutrophils (%) (Auto) 68.7 % (16.0-70.0) 81.8 % (16.0-70.0) Lymphocytes (%) (Auto) 24.5 % (9.0-44.0) 10.5 % (9.0-44.0) Monocytes (%) (Auto) 6.2 % (0.0-8.0) 7.4 % (0.0-8.0) Eosinophils (%) (Auto) 0.0 % (0.0-4.0) 0.0 % (0.0-4.0) Basophils (%) (Auto) 0.6 % (0.0-2.0) 0.3 % (0.0-2.0) Neutrophils # (Auto) 8.8 TH/MM3 (1.8-7.7) 11.9 TH/MM3 (1.8-7.7) Lymphocytes # (Auto) 3.1 TH/MM3 (1.0-4.8) 1.5 TH/MM3 (1.0-4.8) Monocytes # (Auto) 0.8 TH/MM3 (0-0.9) 1.1 TH/MM3 (0-0.9) Eosinophils # (Auto) 0.0 TH/MM3 (0-0.4) 0.0 TH/MM3 (0-0.4) Basophils # (Auto) 0.1 TH/MM3 (0-0.2) 0.0 TH/MM3 (0-0.2) CBC Comment DIFF FINAL DIFF FINAL Differential Comment Prothrombin Time 11.7 SEC (9.8-11.6) Prothromb Time International Ratio 1.2 RATIO Activated Partial Thromboplast Time 19.6 SEC (24.3-30.1) Bedside Sodium 146 MMOL/L (137-144) Bedside Potassium 2.6 MMOL/L (3.6-5.0) Bedside Chloride 106 MMOL/L (102-111) Bedside Blood Urea Nitrogen 17 MG/DL (5-21) Bedside Creatinine 1.5 MG/DL (0.6-1.3) Bedside Glucose 229 MG/DL (68-110) Blood Gas Puncture Site DRAWN IN OR ART LINE Blood Gas Patient Temperature 98.6 98.6 Blood Gas HCO3 25 mmol/L (22-26) 22 mmol/L (22-26) Blood Gas Base Excess 0.7 mmol/L (-2-2) -1.4 mmol/L (-2-2) Blood Gas Oxygen Saturation 98 % (90-100) 98 % (90-100) Arterial Blood pH 7.41 (7.380-7.420) 7.47 (7.380-7.420) Arterial Blood Partial Pressure CO2 40 mmHg (38-42) 30 mmHg (38-42) Arterial Blood Partial Pressure O2 231 mmHg (61-120) 210 mmHg (61-120) Arterial Blood Oxygen Content 14.8 Vol % (12.0-20.0) 13.2 Vol % (12.0-20.0) Arterial Blood Carboxyhemoglobin 1.1 % (0-4) 0.9 % (0-4) Arterial Blood Methemoglobin 1.0 % (0-2) 1.2 % (0-2) Blood Gas Hemoglobin 10.4 G/DL (12.0-16.0) 9.2 G/DL (12.0-16.0) Oxygen Delivery Device OR VENTILATOR Blood Gas Ventilator Setting OR PRVC/AC Blood Gas Inspired Oxygen 50 % 50 % Blood Urea Nitrogen 18 MG/DL (7-18) Creatinine 1.41 MG/DL (0.50-1.00) Random Glucose 137 MG/DL (74-106) Calcium Level 7.5 MG/DL (8.5-10.1) Sodium Level 145 MEQ/L (136-145) Potassium Level 4.0 MEQ/L (3.5-5.1) Chloride Level 111 MEQ/L (98-107) Carbon Dioxide Level 24.3 MEQ/L (21.0-32.0) Anion Gap 10 MEQ/L (5-15) Estimat Glomerular Filtration Rate 32 ML/MIN (>89) Test 06/25/17 16:54 06/25/17 19:00 06/26/17 00:49 06/26/17 04:29 Blood Gas Puncture Site ART LINE ART LINE Blood Gas Patient Temperature 98.6 98.6 Blood Gas HCO3 22 mmol/L (22-26) 21 mmol/L (22-26) Blood Gas Base Excess -1.2 mmol/L (-2-2) -2.4 mmol/L (-2-2) Blood Gas Oxygen Saturation 98 % (90-100) 98 % (90-100) Arterial Blood pH 7.49 (7.380-7.420) 7.43 (7.380-7.420) Arterial Blood Partial Pressure CO2 29 mmHg (38-42) 33 mmHg (38-42) Arterial Blood Partial Pressure O2 214 mmHg (61-120) 176 mmHg (61-120) Arterial Blood Oxygen Content 12.9 Vol % (12.0-20.0) 12.5 Vol % (12.0-20.0) Arterial Blood Carboxyhemoglobin 1.3 % (0-4) 1.1 % (0-4) Arterial Blood Methemoglobin 0.7 % (0-2) 1.0 % (0-2) Blood Gas Hemoglobin 9.0 G/DL (12.0-16.0) 8.8 G/DL (12.0-16.0) Oxygen Delivery Device VENTILATOR VENTILATOR Blood Gas Ventilator Setting SEE COMMENTS PRVC/AC Blood Gas Inspired Oxygen 50 % 40 % Sodium Level 146 MEQ/L (136-145) 153 MEQ/L (136-145) Serum Osmolality 318 MOSM/KG (275-295) 318 MOSM/KG (275-295) Phosphorus Level 3.2 MG/DL (2.5-4.9) Magnesium Level 2.0 MG/DL (1.5-2.5) Test 06/26/17 05:00 06/26/17 11:00 06/26/17 17:15 06/27/17 04:40 White Blood Count 12.5 TH/MM3 (4.0-11.0) 19.0 TH/MM3 (4.0-11.0) Red Blood Count 3.02 MIL/MM3 (4.00-5.30) 2.86 MIL/MM3 (4.00-5.30) Hemoglobin 8.5 GM/DL (11.6-15.3) 7.8 GM/DL (11.6-15.3) Hematocrit 25.4 % (35.0-46.0) 24.5 % (35.0-46.0) Mean Corpuscular Volume 84.1 FL (80.0-100.0) 85.8 FL (80.0-100.0) Mean Corpuscular Hemoglobin 28.1 PG (27.0-34.0) 27.3 PG (27.0-34.0) Mean Corpuscular Hemoglobin Concent 33.4 % (32.0-36.0) 31.8 % (32.0-36.0) Red Cell Distribution Width 16.1 % (11.6-17.2) 16.3 % (11.6-17.2) Platelet Count 159 TH/MM3 (150-450) 194 TH/MM3 (150-450) Mean Platelet Volume 8.6 FL (7.0-11.0) 8.5 FL (7.0-11.0) Neutrophils (%) (Auto) 72.7 % (16.0-70.0) 79.2 % (16.0-70.0) Lymphocytes (%) (Auto) 15.8 % (9.0-44.0) 10.2 % (9.0-44.0) Monocytes (%) (Auto) 10.8 % (0.0-8.0) 9.9 % (0.0-8.0) Eosinophils (%) (Auto) 0.0 % (0.0-4.0) 0.0 % (0.0-4.0) Basophils (%) (Auto) 0.7 % (0.0-2.0) 0.7 % (0.0-2.0) Neutrophils # (Auto) 9.1 TH/MM3 (1.8-7.7) 15.1 TH/MM3 (1.8-7.7) Lymphocytes # (Auto) 2.0 TH/MM3 (1.0-4.8) 1.9 TH/MM3 (1.0-4.8) Monocytes # (Auto) 1.3 TH/MM3 (0-0.9) 1.9 TH/MM3 (0-0.9) Eosinophils # (Auto) 0.0 TH/MM3 (0-0.4) 0.0 TH/MM3 (0-0.4) Basophils # (Auto) 0.1 TH/MM3 (0-0.2) 0.1 TH/MM3 (0-0.2) CBC Comment DIFF FINAL DIFF FINAL Differential Comment Blood Urea Nitrogen 11 MG/DL (7-18) 18 MG/DL (7-18) Creatinine 1.26 MG/DL (0.50-1.00) 1.49 MG/DL (0.50-1.00) Random Glucose 129 MG/DL (74-106) 132 MG/DL (74-106) Total Protein 5.2 GM/DL (6.4-8.2) Calcium Level 7.4 MG/DL (8.5-10.1) 7.8 MG/DL (8.5-10.1) Phosphorus Level 3.0 MG/DL (2.5-4.9) 2.5 MG/DL (2.5-4.9) 2.4 MG/DL (2.5-4.9) 3.2 MG/DL (2.5-4.9) Magnesium Level 2.0 MG/DL (1.5-2.5) 1.8 MG/DL (1.5-2.5) 2.0 MG/DL (1.5-2.5) Sodium Level 154 MEQ/L (136-145) 155 MEQ/L (136-145) 155 MEQ/L (136-145) 155 MEQ/L (136-145) Potassium Level 3.4 MEQ/L (3.5-5.1) 3.4 MEQ/L (3.5-5.1) Chloride Level 122 MEQ/L (98-107) 125 MEQ/L (98-107) Carbon Dioxide Level 22.4 MEQ/L (21.0-32.0) 21.7 MEQ/L (21.0-32.0) Anion Gap 10 MEQ/L (5-15) 8 MEQ/L (5-15) Estimat Glomerular Filtration Rate 37 ML/MIN (>89) 34 ML/MIN (>89) Serum Osmolality 320 MOSM/KG (275-295) 319 MOSM/KG (275-295) 317 MOSM/KG (275-295) 319 MOSM/KG (275-295) Protein Corrected Calcium 8.5 MG/DL (8.5-10.1) Test 06/27/17 04:45 Blood Gas Puncture Site RT FEMORAL Blood Gas Patient Temperature 98.6 Blood Gas HCO3 19 mmol/L (22-26) Blood Gas Base Excess -5.9 mmol/L (-2-2) Blood Gas Oxygen Saturation 97 % (90-100) Arterial Blood pH 7.31 (7.380-7.420) Arterial Blood Partial Pressure CO2 40 mmHg (38-42) Arterial Blood Partial Pressure O2 161 mmHg (61-120) Arterial Blood Oxygen Content 12.0 Vol % (12.0-20.0) Arterial Blood Carboxyhemoglobin 1.1 % (0-4) Arterial Blood Methemoglobin 0.9 % (0-2) Blood Gas Hemoglobin 8.5 G/DL (12.0-16.0) Oxygen Delivery Device VENTILATOR Blood Gas Ventilator Setting Blood Gas Inspired Oxygen 40 % Result Diagram: 06/27/17 0440 06/27/17 0440 Imaging Last 24 hours Impressions Chest X-Ray 06/27/17 0600 Signed Impressions: Service Date/Time: Tuesday, June 27, 2017 03:02 - CONCLUSION: No significant change. Roderick Poole MD Procedures * 06/25/17: Endotracheal intubation * 06/25/17: Left frontal bur hole with placement of an intracranial pressure monitor. * 06/25/17: Right frontal temporal parietal decompressive cranictomy, evacuation of subdural hematoma, duroplasty * 06/25/17: Left subclavian central line placement * 06/25/17: Endotracheal tube exchange . Assessment and Plan Disease Oriented Problem List: (1) Traumatic subdural hematoma (2) Traumatic brain injury (3) Respiratory failure (4) Hypertension (5) Chronic kidney disease (6) History of CVA (cerebrovascular accident) (7) History of meningioma Symptom Scale: (1) Debility 0-10 Scale: Unable to quantify (2) Dyspnea 0-10 Scale: Unable to quantify Pertinent Non-Medical Issues Psychosocial: Patient originally from [place]. Moved to [place] 23 years ago. to current for the past 23 years. Has 2 biological children, daughter Ameena resides in [place], son Aditya resides in [place]. 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 No service. Spiritual: Spiritism melita. Legal: Advance directives reported as completed. Pending copy. Ethical issues impacting care: No ethical issues identified. . Important Contacts Hemanth , . . Prognosis Mrs. Uribe is a 77-year-old female with a medical history significant for history of right-sided meningioma, prior CVA, hypertension, hyperlipidemia, GERD , anxiety and mild dementia. Patient was found on the floor at home by her , EMS was called. CT revealing large subdural hematoma, she underwent right frontal temporal parietal decompressive craniectomy, evacuation of subdural hematoma, duroplasty as well as left frontal jeevan hole with placement of an intracranial pressure monitor. Patient with recent previous subdural hematoma status post craniotomy for evacuation on 04/16/17. Prognosis is guarded at this time given massive head trauma/traumatic brain injury, multiple comorbidities, physical deconditioning and advanced age. . Code Status: Alternative Code Plan * CODE STATUS: NO cardiac code. Intubation only. == requesting DNR/DNI/ do NOT reintubate if patient is medically extubated. * HEALTHCARE DECISION-MAKING: Patient unable to participating medical decision making secondary to clinical condition. Not likely to regain capacity given severity of brain injury. Advanced directives completed. Patient has elected her Hemanth Uribe as healthcare surrogate decision maker, alternate surrogate is daughter Elena Villanueva. has fully accepted this role. * GOALS OF CARE: Patient's Hemanth Uribe acting as healthcare surrogate decision maker has elected to continue current management short of NO cardiac resuscitation (intubation only), allow a few more days for clinical improvement with hopes of medical extubation. As per , code status to be changed to DNR/DNI if patient is medically extubated (DO NOT REINTUBATE). also requesting NO blood products, NO additional invasive procedures/ interventions such as tracheostomy or PEG tube placement. likely to transition to comfort-directed care if patient is unable to medically extubate or in the setting of additional complications or decline. Palliative care to meet with patient's on Friday 06/30 at 10 AM for follow-up. * SYMPTOMS: = Dyspnea: Patient remains endotracheally intubated on mechanical ventilation. CPAP trial this morning, tolerated aprox 30 min. Ongoing trials. = Debility: Progressive. Worsen since April 2017 status post craniotomy for evacuation of subdural hematoma. * Case discussed with bedside RN and Dr. Hankins. * Palliative care contact information has been provided to patient and family. * Palliative care will continue to follow up for further clarification of goals of care as patient's clinical course continues to evolve. . Time Spent Total Floor Time (mins): 41 (Total time to include review medical records, physical exam, goals of care conversation with patient's , case discussion with bedside RN and Dr. Hankins.) >50% Counseling/Coord of Care: Yes Attestation To help prompt me to consider important information that might be impacting today's encounter and assessment, information from prior notes written by myself or my colleagues may have been "brought forward" into today's note. My signature on this note, however, is an attestation that I personally performed the exam, history, and/or decision-making noted today, and, unless otherwise indicated, the interactions with patient, family, and staff as well as the review of records all occurred today. I also attest that the listed assessment and stated plan reflect my best clinical judgment today based on the combination of historical information, prior notes, and today's exam/ interactions. When time spent is documented, it refers only to time spent today by the signer, or if indicated, combined time spent today by collaborating physician/nurse practitioner. Jazlyn Cole Jun 27, 2017 15:06
--- NOTE | 2017-06-27 16:08 | HHI.NSPN ---
History Interval History Status post craniotomy for subdural hematoma. Nurses report no significant change System Review Comments Unchanged Exam Results Vital Signs Date Time Temp Pulse Resp B/P (MAP) Pulse Ox O2 Delivery O2 Flow Rate FiO2 06/27/17 14:00 96 06/27/17 12:00 40 06/27/17 12:00 97.6 10 151/66 (94) 100 91/87 (88) 06/27/17 07:00 Mechanical Ventilator Intake and Output 06/27/17 06/27/17 06/28/17 08:00 16:00 00:00 Intake Total 1250 ml Output Total 440 ml Balance 810 ml Physical Examination Patient remains obtunded. ICP is controlled Remains sedated Medical Decision Making Impression and Plan Patient appears stable. ICP is controlled Continue close support Billy Hernandez MD Jun 27, 2017 16:08
--- NOTE | 2017-06-27 18:41 | HHI.CCPN ---
Subjective Brief History Unfortunately 77-year-old lady found at home unconscious and transferred to our institution from another hospital According to the medics patient had Bk Coma Scale of 3 and right pupil first fixed and dilated She was transferred to our institution as priority 1 trauma alert resuscitated and worked up Patient is found to have large right subdural hematoma with a shift Immediately taken to the operating room for emergency right craniotomy with subdural hematoma evacuation and a left frontal jeevan hole placement with intracranial pressure monitor 24 Hour Review/Hospital Course 06/27/2017 Since arrival patient has been in the ICU intubated ventilated Neuroprotective measures including propofol and fentanyl ICP remains very low 3% hypertonic saline at 30 cc/h Hemodynamically patient is stable however quite hypertensive requiring multiple antihypertensives including Lopressor Amlodipine Lisinopril Patient was placed on nicardipine drip and today this was removed due better control the blood pressure Remains on the ventilator on assist control ventilation CPAP trial patient is apneic Renal function preserved Plan Patient remains ventilatory dependent all the sedation has been removedBut patient is not responding to any stimuli [place] Coma Scale remains 3 Low hemoglobin especially in this age group however there is express wish for patient not to have any blood or blood products and we are finding out whether she is [facility] Objective Vital Signs Date Time Temp Pulse Resp B/P (MAP) Pulse Ox O2 Delivery O2 Flow Rate FiO2 06/27/17 18:00 120 06/27/17 17:29 100 30 06/27/17 16:00 98.3 14 150/67 (94) 06/27/17 07:00 Mechanical Ventilator Intake and Output 06/27/17 06/27/17 06/28/17 08:00 16:00 00:00 Intake Total 1250 ml 0 ml Output Total 440 ml 550 ml Balance 810 ml -550 ml Result Diagram: 06/27/17 0440 06/27/17 0440 Other Results Laboratory Tests Test 06/27/17 04:45 Blood Gas Puncture Site RT FEMORAL Blood Gas Patient Temperature 98.6 Blood Gas HCO3 19 mmol/L (22-26) Blood Gas Base Excess -5.9 mmol/L (-2-2) Blood Gas Oxygen Saturation 97 % (90-100) Arterial Blood pH 7.31 (7.380-7.420) Arterial Blood Partial Pressure CO2 40 mmHg (38-42) Arterial Blood Partial Pressure O2 161 mmHg (61-120) Arterial Blood Oxygen Content 12.0 Vol % (12.0-20.0) Arterial Blood Carboxyhemoglobin 1.1 % (0-4) Arterial Blood Methemoglobin 0.9 % (0-2) Blood Gas Hemoglobin 8.5 G/DL (12.0-16.0) Oxygen Delivery Device VENTILATOR Blood Gas Ventilator Setting Blood Gas Inspired Oxygen 40 % Imaging Last 24 hours Impressions Chest X-Ray 06/27/17 0600 Signed Impressions: Service Date/Time: Tuesday, June 27, 2017 03:02 - CONCLUSION: No significant change. 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 arrival patient has been in the ICU intubated ventilated Neuroprotective measures including propofol and fentanyl ICP remains very low 3% hypertonic saline at 30 cc/h Hemodynamic/Cardiac Hemodynamically patient is stable however quite hypertensive requiring multiple antihypertensives including Lopressor Amlodipine Lisinopril Patient was placed on nicardipine drip and today this was removed due better control the blood pressure Pulmonary/Respiratory Remains on the ventilator on assist control ventilation Bilateral good breath sounds CPAP trial patient is apneic Abdomen/GI Nutrition Abdomen soft Patient has palpable small infrarenal abdominal aortic aneurysm measuring about 3.5 cm which does not require any further clinical or diagnostic workup Renal/I&O Renal function preserved Assessment and Plan Attestation Plan Patient remains ventilatory dependent all the sedation has been removedBut patient is not responding to any stimuli [place] Coma Scale remains 3 Low hemoglobin especially in this age group however there is express wish for patient not to have any blood or blood products and we are finding out whether she is [facility] This patient has a very poor prognosis in face of her age and severe injuries Mortality in this situation is 90% within 30 days Critical care time 32 minutes Tatiana Higginbotham MD Jun 27, 2017 18:41
[2017-06-27] MEDS: ATORVASTATIN 10 MG TAB PO SCH (20:02)
[2017-06-28] VITALS (16 sets, daily range): BP systolic 102–164; BP diastolic 63–97; PULSE 92–141; RESP 14–16; TEMP 97.9–98.7; O2SAT 95–100
[2017-06-28] MEDS: SODIUM CHLOR 0.9% 1000 ML INJ 1,000 ML IV SCH ×2 (01:00→18:06)
[2017-06-28] MEDS: niCARdipine 25 MG/NS 250 ML Vial2Bag or IV room IV PRN ×6 (02:07→22:10)
[2017-06-28] MEDS: METOPROLOL TARTRATE 5 MG/5 ML VIAL IV PUSH SCH ×5 (04:15→21:09)
[2017-06-28] MEDS: LEVOTHYROXINE SODIUM 50 MCG TAB PO SCH (04:15)
[2017-06-28 04:25] LABS: AUTOMATED NEUTROPHIL # 18.7 TH/MM3 (1.8-7.7); BASOPHIL # 0.1 TH/MM3 (0-0.2); BASOPHIL % 0.3 % (0.0-2.0); HEMATOCRIT 25.6 % (35.0-46.0); HEMOGLOBIN 8.3 GM/DL (11.6-15.3); LYMPH % 4.9 % (9.0-44.0); MEAN CELL VOLUME 86.6 FL (80.0-100.0); MEAN CORPUSCULAR HGB CONC 32.3 % (32.0-36.0); MEAN PLATELET VOLUME 8.2 FL (7.0-11.0); MONOCYTE # 1.5 TH/MM3 (0-0.9); NEUT % 87.8 % (16.0-70.0); PLATELET COUNT 213 TH/MM3 (150-450); RED BLOOD COUNT 2.95 MIL/MM3 (4.00-5.30); RED CELL DISTRIBUTION WIDTH 16.7 % (11.6-17.2); WHITE BLOOD COUNT 21.3 TH/MM3 (4.0-11.0)
[2017-06-28 04:38] LABS: BICARBONATE 18.1 MEQ/L (21.0-32.0); CALCIUM 8.5 MG/DL (8.5-10.1); CREATININE 1.87 MG/DL (0.50-1.00); MAGNESIUM 2.1 MG/DL (1.5-2.5); PHOSPHORUS 3.9 MG/DL (2.5-4.9)
[2017-06-28] MEDS: CHLORHEXIDINE 0.12% (ORAL KIT) 15 ML CUP MT SCH ×2 (08:00→20:00)
[2017-06-28] MEDS: SODIUM CHLORIDE 0.9% FLUSH 10 ML FLUSH IV FLUSH SCH ×2 (09:00→21:00)
[2017-06-28] MEDS: POTASSIUM CHLORIDE 10 MEQ CONTROLLED RELEASE TAB PO SCH (09:00)
[2017-06-28] MEDS: levETIRAcetam INJ 500 MG in SODIUM CHLORIDE 0.9% INJ 100 ML IV SCH ×2 (09:25→21:10)
[2017-06-28] MEDS: FUROSEMIDE 20 MG/2 ML VIAL IV PUSH SCH (09:26)
[2017-06-28] MEDS: LISINOPRIL 20 MG TAB PO SCH ×2 (09:27→21:10)
[2017-06-28] MEDS: POTASSIUM CHLORIDE 25 MEQ EFFERVESCENT TAB NG SCH (10:45)
--- NOTE | 2017-06-28 11:38 | HHI.CCPN ---
Subjective Remarks/Hospital Course Elderly woman found down at home after several hours. Brought to ED largely unresponsive. CT head reveal large traumatic SDH. Taken to OR for evacuation. Seen on arrival her to [facility] 06/26: Gas exchange acceptable. ICP control has required numerous ventilatory and osmolal manipulations. : Opens eyes, osmolality well concentrated. BP controlled. 06/28: ICPs are adequately controlled, serum adequately concentrated, patient opens eyes spontaneously and appears to track. Objective Vital Signs Date Time Temp Pulse Resp B/P (MAP) Pulse Ox O2 Delivery O2 Flow Rate FiO2 06/28/17 10:00 40 06/28/17 08:00 98.5 103 14 152/66 (94) 100 06/28/17 07:00 Mechanical Ventilator Intake and Output 06/28/17 06/28/17 06/29/17 08:00 16:00 00:00 Output Total 1130 ml Balance -1130 ml Result Diagram: 06/28/17 0410 06/28/17 0410 Other Results Laboratory Tests Test 06/28/17 05:00 Blood Gas Puncture Site RIGHT PEDAL Blood Gas Patient Temperature 98.6 Blood Gas HCO3 17 mmol/L (22-26) Blood Gas Base Excess -8.5 mmol/L (-2-2) Blood Gas Oxygen Saturation 97 % (90-100) Arterial Blood pH 7.31 (7.380-7.420) Arterial Blood Partial Pressure CO2 33 mmHg (38-42) Arterial Blood Partial Pressure O2 125 mmHg (61-120) Arterial Blood Oxygen Content 14.6 Vol % (12.0-20.0) Arterial Blood Carboxyhemoglobin 1.0 % (0-4) Arterial Blood Methemoglobin 0.8 % (0-2) Blood Gas Hemoglobin 10.6 G/DL (12.0-16.0) Oxygen Delivery Device VENTILATOR Blood Gas Ventilator Setting PRVC/AC Blood Gas Inspired Oxygen 30 % Objective Remarks Head: Wrapped in dry clean dressing. Intracranial pressure bolt in place. Neck: Supple. Orally intubated with 6.5 mm endotracheal tube. Exchanged for 8.0 tube. Lungs: Clear bilaterally. No adventitious sounds. Good bilateral air movement. Heart: Regular rate and rhythm. Normal S1-S2. No JVD Abdomen: Soft, nondistended, no guarding, present bowel sounds. Extremities: Warm: Well perfused, No edema. Neuro: Opens eyes. Pupils 2 mm, reactive. Lightly sedated for ICP control and vent synchrony. Appears to track with her eyes. A/P Assessment and Plan Assessment: 1. Traumatic subdural hematoma 2. Traumatic brain injury 3. Respiratory failure 4. Coma Plan: 1. PRVC ventilator mode. PEEP 5. SBTs 10/5. 2. Monitor and tidal CO2 and maintain PC02 and range 35-40 torr 3. Correlate end-tidal carbon dioxide with arterial blood gas 4. Insert central venous access line 5. Initiate 3% saline intravenous infusion at 30 cc/h 6. Check serum sodium and osmolality every 6 hours. Maintain osmolality and range 310-320 7. Pepcid for GI ulcer prophylaxis 8. SCD for DVT prophylaxis 9. Monitor intracranial pressure 10. Infuse 23% saline for intracranial pressure greater than 20 if osmolality less than 310. 11. Propofol and fentanyl sedation to control intracranial pressure 12. Head of bed elevated at least 30. 13. Decrease 3% rate to 10. Overall impression: This patient is critically ill after a severe traumatic head injury having presented with a profound neurologic deficit. She has undergone evacuation of a large subdural hematoma. We anticipate cerebral edema but so far ICP control has been acceptable, helped by decompressive maneuver with bone flap removal. Critical care time 37 mins Chato Hankins MD Jun 28, 2017 11:38
[2017-06-28] MEDS: PANTOPRAZOLE SOD 40 MG DELAYED RELEASE TAB PO SCH (11:40)
[2017-06-28] MEDS ORDERED: AMIODARONE INJ 450 MG in DEXTROSE 5% IN WATE(EXCEL) INJ 241 ML IV PRN ×2 (14:33)
[2017-06-28] MEDS: AMIODARONE INJ 450 MG in SODIUM CHLOR 0.9% (EXCEL) INJ 250 ML IV PRN ×2 (15:27→22:10)
--- NOTE | 2017-06-28 15:31 | HHI.NSPN ---
History Interval History Status post craniotomy for subdural hematoma. Nurses report no significant change Exam Results Vital Signs Date Time Temp Pulse Resp B/P (MAP) Pulse Ox O2 Delivery O2 Flow Rate FiO2 06/28/17 14:59 134 150/72 06/28/17 14:45 100 30 06/28/17 12:00 97.9 16 06/28/17 07:00 Mechanical Ventilator Intake and Output 06/28/17 06/28/17 06/29/17 08:00 16:00 00:00 Intake Total 250 ml 100 ml Output Total 1130 ml Balance -880 ml 100 ml Physical Examination Patient remains obtunded. ICP is controlled Remains sedated Medical Decision Making Impression and Plan Patient appears stable. ICP is controlled Continue close support Repeat CT in Billy Hernandez MD Jun 28, 2017 15:31
[2017-06-28 15:44] LABS: MAGNESIUM 2.1 MG/DL (1.5-2.5)
[2017-06-28 15:47] LABS: TROPONIN I 0.12 NG/ML (0.02-0.05)
--- NOTE | 2017-06-28 20:43 | HHI.CCPN ---
Subjective Brief History Unfortunately 77-year-old lady found at home unconscious and transferred to our institution from another hospital According to the medics patient had Bk Coma Scale of 3 and right pupil first fixed and dilated She was transferred to our institution as priority 1 trauma alert resuscitated and worked up Patient is found to have large right subdural hematoma with a shift Immediately taken to the operating room for emergency right craniotomy with subdural hematoma evacuation and a left frontal jeevan hole placement with intracranial pressure monitor 24 Hour Review/Hospital Course 06/27/2017 Since arrival patient has been in the ICU intubated ventilated Neuroprotective measures including propofol and fentanyl ICP remains very low 3% hypertonic saline at 30 cc/h Hemodynamically patient is stable however quite hypertensive requiring multiple antihypertensives including Lopressor Amlodipine Lisinopril Patient was placed on nicardipine drip and today this was removed due better control the blood pressure Remains on the ventilator on assist control ventilation CPAP trial patient is apneic Renal function preserved Plan Patient remains ventilatory dependent all the sedation has been removedBut patient is not responding to any stimuli [place] Coma Scale remains 3 Low hemoglobin especially in this age group however there is express wish for patient not to have any blood or blood products and we are finding out whether she is Christian 06/28/2017 Patient slightly more awake today opens her eyes but she did not follow any commands in my presence Hemodynamically stable however developed A. fib with RVR this afternoon Placed on amiodarone drip protocol maintaining blood pressure Bilateral breath sounds remains on assist control ventilatory mode Renal function preserved Patient is somewhat anemic but there is a clear warning in the chart the patient refuses blood or blood products In face of patient's age and general status as well as prospects of recovery the care is been discussed with her by neurosurgeon Dr. España and decision was made to go ahead for about 3 days and if patient does not significantly improve not to escalate care further I will discuss this with her again tomorrow and I will follow his wishes Objective Vital Signs Date Time Temp Pulse Resp B/P (MAP) Pulse Ox O2 Delivery O2 Flow Rate FiO2 06/28/17 19:39 100 40 06/28/17 16:00 98.0 129 14 164/97 (119) 06/28/17 07:00 Mechanical Ventilator Intake and Output 06/28/17 06/28/17 06/29/17 08:00 16:00 00:00 Intake Total 250 ml 100 ml Output Total 1130 ml 1775 ml Balance -880 ml 100 ml -1775 ml Result Diagram: 06/28/17 0410 06/28/17 0410 Other Results Laboratory Tests Test 06/28/17 05:00 Blood Gas Puncture Site RIGHT PEDAL Blood Gas Patient Temperature 98.6 Blood Gas HCO3 17 mmol/L (22-26) Blood Gas Base Excess -8.5 mmol/L (-2-2) Blood Gas Oxygen Saturation 97 % (90-100) Arterial Blood pH 7.31 (7.380-7.420) Arterial Blood Partial Pressure CO2 33 mmHg (38-42) Arterial Blood Partial Pressure O2 125 mmHg (61-120) Arterial Blood Oxygen Content 14.6 Vol % (12.0-20.0) Arterial Blood Carboxyhemoglobin 1.0 % (0-4) Arterial Blood Methemoglobin 0.8 % (0-2) Blood Gas Hemoglobin 10.6 G/DL (12.0-16.0) Oxygen Delivery Device VENTILATOR Blood Gas Ventilator Setting PRVC/AC Blood Gas Inspired Oxygen 30 % Exam ANIMAL NUTRITION CONSULTANT Intubated ventilated small dose fentanyl Hemodynamic/Cardiac Hemodynamically intact Went to A. fib with RVR which is now controlled with amiodarone Pulmonary/Respiratory Bilateral breath sounds Abdomen/GI Nutrition Abdomen soft Renal/I&O Renal function preserved with slight bump in the creatinine probably some underlying renal insufficiency Assessment and Plan Attestation Will discuss care further with tomorrow In this particular unfortunate lady with this degree of injury and in face of her age recovery prognosis is very poor She remains DNR Critical care 32 minutes Tatiana Higginbotham MD Jun 28, 2017 20:43
[2017-06-28] MEDS: ATORVASTATIN 10 MG TAB PO SCH (21:10)
[2017-06-29] VITALS (15 sets, daily range): BP systolic 118–150; BP diastolic 56–71; PULSE 89–100; RESP 13–17; TEMP 98–99.2; O2SAT 100
--- NOTE | 2017-06-29 05:12 | RADRPT ---
EXAM DATE/TIME: 06/29/2017 04:21 [place] COMPARISON: CT BRAIN W/O CONTRAST, June 25, 2017, 10:00. INDICATIONS : Follow up bilateral subdural hematomas. RADIATION DOSE: 56.35 CTDIvol (mGy) MEDICAL HISTORY : Cardiovascular disease. Hypertension. Seizures. SURGICAL HISTORY : Cholecystectomy. Hysterectomy. ENCOUNTER: Subsequent ACUITY: 2 days PAIN SCALE: Non-responsive LOCATION: cranial TECHNIQUE: Multiple contiguous axial images were obtained of the head. Using automated exposure control and adj ustment of the mA and/or kV according to patient size, radiation dose was kept as low as reasonably a chievable to obtain optimal diagnostic quality images. DICOM format image data is available electro nically for review and comparison. FINDINGS: There are interval postsurgical changes status post right frontal and parietal craniotomy. The p reviously noted large right subdural hematoma has been drained and a smaller residual subdural high d ensity hematoma is now present extending over the frontal, parietal and temporal lobes measuring up t o approximately 9 mm in greatest diameter. On the prior study the subdural hematoma measured up to 2. 1 cm. There is a decreased mass effect and midline shift with no significant residual. The ventricula r system is within normal limits. There is subarachnoid hemorrhage over the cerebellar tentorium. CONCLUSION: 1. Status post interval right craniotomy. 2. Interval decrease in size of the previous noted right subdural hematoma with a smaller residual hi gh density subdural hematoma over the right frontal, parietal and temporal lobes. 3. Decreased mass effect and midline shift with no significant residual shift. Roderick Poole MD on June 29, 2017 at 5:06 Board Certified Radiologist. This report was verified electronically.
[2017-06-29 05:14] LABS: AUTOMATED NEUTROPHIL # 17.6 TH/MM3 (1.8-7.7); BASOPHIL # 0.1 TH/MM3 (0-0.2); BASOPHIL % 0.2 % (0.0-2.0); HEMATOCRIT 25.3 % (35.0-46.0); HEMOGLOBIN 8.1 GM/DL (11.6-15.3); LYMPH % 5.9 % (9.0-44.0); LYMPHOCYTE # 1.2 TH/MM3 (1.0-4.8); MEAN CELL VOLUME 86.4 FL (80.0-100.0); MEAN CORPUSCULAR HEMOGLOBIN 27.8 PG (27.0-34.0); MEAN CORPUSCULAR HGB CONC 32.2 % (32.0-36.0); MEAN PLATELET VOLUME 8.2 FL (7.0-11.0); MONOCYTE # 1.4 TH/MM3 (0-0.9); NEUT % 86.9 % (16.0-70.0); PLATELET COUNT 214 TH/MM3 (150-450); RED BLOOD COUNT 2.93 MIL/MM3 (4.00-5.30); RED CELL DISTRIBUTION WIDTH 16.6 % (11.6-17.2); WHITE BLOOD COUNT 20.3 TH/MM3 (4.0-11.0)
[2017-06-29 05:44] LABS: BICARBONATE 18.7 MEQ/L (21.0-32.0); CALCIUM 8.6 MG/DL (8.5-10.1); CREATININE 1.88 MG/DL (0.50-1.00); PHOSPHORUS 4.5 MG/DL (2.5-4.9)
[2017-06-29] MEDS: LEVOTHYROXINE SODIUM 50 MCG TAB PO SCH (06:00)
[2017-06-29] MEDS: METOPROLOL TARTRATE 5 MG/5 ML VIAL IV PUSH SCH ×4 (06:39→22:05)
[2017-06-29] MEDS: CHLORHEXIDINE 0.12% (ORAL KIT) 15 ML CUP MT SCH ×2 (08:00→20:00)
[2017-06-29] MEDS: SODIUM CHLORIDE 0.9% FLUSH 10 ML FLUSH IV FLUSH SCH ×2 (09:00→22:03)
[2017-06-29] MEDS: POTASSIUM CHLORIDE 25 MEQ EFFERVESCENT TAB NG SCH (09:18)
[2017-06-29] MEDS: FUROSEMIDE 20 MG/2 ML VIAL IV PUSH SCH (09:18)
[2017-06-29] MEDS: LISINOPRIL 20 MG TAB PO SCH ×2 (09:19→22:06)
[2017-06-29] MEDS: levETIRAcetam INJ 500 MG in SODIUM CHLORIDE 0.9% INJ 100 ML IV SCH ×2 (09:21→22:02)
[2017-06-29] MEDS: niCARdipine 25 MG/NS 250 ML Vial2Bag or IV room IV PRN ×4 (09:23→15:34)
--- NOTE | 2017-06-29 09:30 | HHI.CCPN ---
Subjective Remarks/Hospital Course Elderly woman found down at home after several hours. Brought to ED largely unresponsive. CT head reveal large traumatic SDH. Taken to OR for evacuation. Seen on arrival her to [facility] 06/26: Gas exchange acceptable. ICP control has required numerous ventilatory and osmolal manipulations. : Opens eyes, osmolality well concentrated. BP controlled. 06/28: ICPs are adequately controlled, serum adequately concentrated, patient opens eyes spontaneously and appears to track. 06/29:ICP controlled. Opens eyes, tracks. Failed CPAP yesterday. is getting anxious to extubate - states she would never want this. Objective Vital Signs Date Time Temp Pulse Resp B/P (MAP) Pulse Ox O2 Delivery O2 Flow Rate FiO2 06/29/17 07:25 35 06/29/17 07:20 100 06/29/17 07:00 Mechanical Ventilator 06/29/17 06:00 98 06/29/17 04:00 98.7 14 119/57 (77) Intake and Output 06/29/17 06/29/17 06/30/17 08:00 16:00 00:00 Intake Total 0 ml Output Total 550 ml Balance -550 ml Result Diagram: 06/29/17 0455 06/29/17 0455 Other Results Laboratory Tests Test 06/29/17 06:29 Blood Gas Puncture Site RT BRACHIAL Blood Gas Patient Temperature 98.6 Blood Gas HCO3 17 mmol/L (22-26) Blood Gas Base Excess -7.7 mmol/L (-2-2) Blood Gas Oxygen Saturation 87 % (90-100) Arterial Blood pH 7.33 (7.380-7.420) Arterial Blood Partial Pressure CO2 33 mmHg (38-42) Arterial Blood Partial Pressure O2 60 mmHg (61-120) Arterial Blood Oxygen Content 10.2 Vol % (12.0-20.0) Arterial Blood Carboxyhemoglobin 1.2 % (0-4) Arterial Blood Methemoglobin 0.7 % (0-2) Blood Gas Hemoglobin 8.3 G/DL (12.0-16.0) Oxygen Delivery Device VENTILATOR Blood Gas Ventilator Setting SEE COMMENT Blood Gas Inspired Oxygen 40 % Objective Remarks Head: Wrapped in dry clean dressing. Intracranial pressure bolt in place. Neck: Supple. Orally intubated with 6.5 mm endotracheal tube. Exchanged for 8.0 tube. Lungs: Clear bilaterally. No adventitious sounds. Good bilateral air movement. Heart: Regular rate and rhythm. Normal S1-S2. No JVD Abdomen: Soft, nondistended, no guarding, present bowel sounds. Extremities: Warm: Well perfused, No edema. Neuro: Opens eyes. Pupils 2 mm, reactive. Lightly sedated for vent synchrony. Appears to track with her eyes. A/P Assessment and Plan Assessment: 1. Traumatic subdural hematoma 2. Traumatic brain injury 3. Respiratory failure 4. Coma Plan: 1. PRVC ventilator mode. PEEP 5. SBTs 15/5. 2. Monitor and tidal CO2 and maintain PC02 and range 35-40 torr 3. Correlate end-tidal carbon dioxide with arterial blood gas 4. Insert central venous access line 5. Initiate 3% saline intravenous infusion at 30 cc/h 6. Check serum sodium and osmolality every 6 hours. Maintain osmolality and range 310-320 7. Pepcid for GI ulcer prophylaxis 8. SCD for DVT prophylaxis 9. Monitor intracranial pressure 10. Infuse 23% saline for intracranial pressure greater than 20 if osmolality less than 310. 11. Propofol and fentanyl sedation to control intracranial pressure 12. Head of bed elevated at least 30. 13. Decrease 3% rate. Overall impression: She has undergone evacuation of a large subdural hematoma. Family deciding long-term care. Will sign off. Chato Hankins MD Jun 29, 2017 09:30
[2017-06-29] MEDS: PANTOPRAZOLE SOD 40 MG DELAYED RELEASE TAB PO SCH (12:00)
--- NOTE | 2017-06-29 12:04 | HHI.NSPN ---
History Interval History Status post craniotomy for subdural hematoma. Nurses report mild improvement Exam Results Vital Signs Date Time Temp Pulse Resp B/P (MAP) Pulse Ox O2 Delivery O2 Flow Rate FiO2 06/29/17 09:23 96 121/58 06/29/17 08:00 35 06/29/17 07:20 100 06/29/17 07:00 Mechanical Ventilator 06/29/17 04:00 98.7 14 Intake and Output 06/29/17 06/29/17 06/30/17 08:00 16:00 00:00 Intake Total 0 ml Output Total 550 ml Balance -550 ml Physical Examination Patient remains lethargic. Opens eyes and follow some simple commands. ICP is controlled Remains sedated. Medical Decision Making Impression and Plan Patient appears stable. ICP is controlled. Mild neurological improvement 1 of the drains had little output and was removed Continue close support Billy Hernandez MD Jun 29, 2017 12:04
--- NOTE | 2017-06-29 14:16 | HHI.CCPN ---
Subjective Brief History Unfortunately 77-year-old lady found at home unconscious and transferred to our institution from another hospital According to the medics patient had Bk Coma Scale of 3 and right pupil first fixed and dilated She was transferred to our institution as priority 1 trauma alert resuscitated and worked up Patient is found to have large right subdural hematoma with a shift Immediately taken to the operating room for emergency right craniotomy with subdural hematoma evacuation and a left frontal jeevan hole placement with intracranial pressure monitor 24 Hour Review/Hospital Course 06/27/2017 Since arrival patient has been in the ICU intubated ventilated Neuroprotective measures including propofol and fentanyl ICP remains very low 3% hypertonic saline at 30 cc/h Hemodynamically patient is stable however quite hypertensive requiring multiple antihypertensives including Lopressor Amlodipine Lisinopril Patient was placed on nicardipine drip and today this was removed due better control the blood pressure Remains on the ventilator on assist control ventilation CPAP trial patient is apneic Renal function preserved Plan Patient remains ventilatory dependent all the sedation has been removedBut patient is not responding to any stimuli [place] Coma Scale remains 3 Low hemoglobin especially in this age group however there is express wish for patient not to have any blood or blood products and we are finding out whether she is Hoahaoism 06/28/2017 Patient slightly more awake today opens her eyes but she did not follow any commands in my presence Hemodynamically stable however developed A. fib with RVR this afternoon Placed on amiodarone drip protocol maintaining blood pressure Bilateral breath sounds remains on assist control ventilatory mode Renal function preserved Patient is somewhat anemic but there is a clear warning in the chart the patient refuses blood or blood products In face of patient's age and general status as well as prospects of recovery the care is been discussed with her by neurosurgeon Dr. España and decision was made to go ahead for about 3 days and if patient does not significantly improve not to escalate care further I will discuss this with her again tomorrow and I will follow his wishes 06/29/2017 Patient remains neurologically unchanged Opens eyes occasionally does not track Told that she follows occasional command but I have not seen myself Remains of any sedation Sodium 1 56 mEq/L and serum osmolality 325 mOsm per liter I have sat down with her and discussed the situation at length. Patient apparently is living well and states he would never wanted her to be like this and neither would she Therefore patient remains DNR we will not escalate the therapy and tomorrow will organize meeting with palliative care at which point probably patient will be disconnected from further support and allowed to pass in peace Objective Vital Signs Date Time Temp Pulse Resp B/P (MAP) Pulse Ox O2 Delivery O2 Flow Rate FiO2 06/29/17 12:00 35 06/29/17 09:23 96 121/58 06/29/17 07:20 100 06/29/17 07:00 Mechanical Ventilator 06/29/17 04:00 98.7 14 Intake and Output 06/29/17 06/29/17 06/30/17 08:00 16:00 00:00 Intake Total 0 ml Output Total 550 ml Balance -550 ml Result Diagram: 06/29/17 0455 06/29/17 0455 Other Results Laboratory Tests Test 06/29/17 06:29 Blood Gas Puncture Site RT BRACHIAL Blood Gas Patient Temperature 98.6 Blood Gas HCO3 17 mmol/L (22-26) Blood Gas Base Excess -7.7 mmol/L (-2-2) Blood Gas Oxygen Saturation 87 % (90-100) Arterial Blood pH 7.33 (7.380-7.420) Arterial Blood Partial Pressure CO2 33 mmHg (38-42) Arterial Blood Partial Pressure O2 60 mmHg (61-120) Arterial Blood Oxygen Content 10.2 Vol % (12.0-20.0) Arterial Blood Carboxyhemoglobin 1.2 % (0-4) Arterial Blood Methemoglobin 0.7 % (0-2) Blood Gas Hemoglobin 8.3 G/DL (12.0-16.0) Oxygen Delivery Device VENTILATOR Blood Gas Ventilator Setting SEE COMMENT Blood Gas Inspired Oxygen 40 % Exam OFFSET PRESSMAN Opens eyes does not follow commands in my presence Hemodynamic/Cardiac Hemodynamically stable requiring some antihypertensives Pulmonary/Respiratory Bilateral breath sounds does not breathe over the ventilator Abdomen/GI Nutrition Abdomen soft Renal/I&O Renal function somewhat impaired with prerenal disease creatinine 1.8 BUN 39 Assessment and Plan Attestation As above noted patient is living will and will likely go to terminal care with palliative care tomorrow Critical care 32 minutes Tatiana Higginbotham MD Jun 29, 2017 14:16
--- NOTE | 2017-06-29 19:57 | EKG ---
Date Performed: 06/28/2017 Time Performed: 14:34:34 PTAGE: 77 years EKG: Atrial fibrillation with rapid ventricular response. Extensive ST-T changes may be due to m yocardial ischemia Compared to previous tracing, the patient is now in atrial fibrillation with a rap id ventricular response Abnormal ECG PREVIOUS TRACING : 06/25/17 @ 1027 DOCTOR: Madhuri Hu Interpretating Date/Time 06/29/2017 19:57:11
[2017-06-29] MEDS ORDERED: MAGNESIUM HYDROXIDE SUSP 30 ML CUP PO SCH (21:00)
[2017-06-29] MEDS ORDERED: DOCUSATE SODIUM 50 MG/SENNA 8.6 MG TAB PO SCH (21:00)
[2017-06-29] MEDS ORDERED: FAMOTIDINE 20 MG TAB PO SCH (21:00)
[2017-06-29] MEDS: ATORVASTATIN 10 MG TAB PO SCH (22:04)
[2017-06-30] VITALS (10 sets, daily range): BP systolic 59–133; BP diastolic 38–69; PULSE 53–116; RESP 18–22; TEMP 97.6–98.2; O2SAT 100
[2017-06-30] MEDS: LEVOTHYROXINE SODIUM 50 MCG TAB PO SCH (05:54)
[2017-06-30] MEDS: METOPROLOL TARTRATE 5 MG/5 ML VIAL IV PUSH SCH ×2 (05:54→10:46)
[2017-06-30 06:31] LABS: BICARBONATE 17.6 MEQ/L (21.0-32.0); CALCIUM 8.7 MG/DL (8.5-10.1); CREATININE 2.33 MG/DL (0.50-1.00); PHOSPHORUS 5.2 MG/DL (2.5-4.9)
[2017-06-30 07:02] LABS: BASOPHIL % 0.1 % (0.0-2.0); HEMATOCRIT 27.7 % (35.0-46.0); HEMOGLOBIN 8.8 GM/DL (11.6-15.3); LYMPH % 6.8 % (9.0-44.0); LYMPHOCYTE # 1.3 TH/MM3 (1.0-4.8); MEAN CELL VOLUME 86.4 FL (80.0-100.0); MEAN CORPUSCULAR HEMOGLOBIN 27.6 PG (27.0-34.0); MEAN CORPUSCULAR HGB CONC 31.9 % (32.0-36.0); MEAN PLATELET VOLUME 8.4 FL (7.0-11.0); MONO % 6.8 % (0.0-8.0); MONOCYTE # 1.3 TH/MM3 (0-0.9); NEUT % 86.3 % (16.0-70.0); PLATELET COUNT 219 TH/MM3 (150-450); RED CELL DISTRIBUTION WIDTH 16.6 % (11.6-17.2); WHITE BLOOD COUNT 19.7 TH/MM3 (4.0-11.0)
[2017-06-30] MEDS: levETIRAcetam INJ 500 MG in SODIUM CHLORIDE 0.9% INJ 100 ML IV SCH (09:00)
--- NOTE | 2017-06-30 10:33 | HHI.HCPN ---
Reason for visit a. To assist with evaluation and management of symptoms including: Shortness of breath. b. To assist medical decision maker(s) with: better understanding of current medical conditions; weighing benefits/burdens of medical treatment options; making medical treatment decisions. . Subjective/Interval History Palliative care follow-up for further clarification of goals of care. Patient remains intubated on mechanical ventilation. Has failed CPAP trials over the weekend. Clinical course complicated by A fib with RVR and elevated troponin. EKG 06/[address]-T changes likely related to myocardial ischemia. 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 Laboratory workup today revealing persistent leukocytosis 19.7, Hgb 8.[address] count 219. BUN/creat 59/ 2.33. Head CT follow-up 06/29 revealing interval decrease in size of the previous noted subdural hematoma with a smaller residual s/p right craniotomy. Patient remains off sedation, eyes open. Not tracking for me or following any commands. Met with patient's Hemanth Uribe. Medical update provided. reports that as per further discussion with attending Dr. Higginbotham and additional family over the weekend, he has decided to transition patient to comfort-directed care/withdrawal of life support given poor prognosis for a meaningful recovery and patient's known wishes as stated in her living will. reports that after patent's 1st subdural hematoma s/p cranio in April , her quality of life was very poor and she was not able to recuperate from it. verbalized that patient made him promise to never keep her on life support if her prognosis is poor. Ongoing emotional support and active listening provided to . Case discussed with bedside RN, Dr. Higginbotham and Dr. Stephens. . Family/friend interactions See interval note. Advance Directives Living Will: Copy in medical record Health Care Surrogate: Copy in medical record Advance Directive Specifics Date completed: 06/23/1995. . Health Care Surrogate(s): Patient has elected her Hemanth Uribe as healthcare surrogate decision maker, alternate surrogate is daughter Elena Villanueva. . Documented care wishes: Living will with standard verbiage as it pertains to terminal condition. . Significant change in goals: Comfort-directed care/withdrawal of life support. . Objective Vital Signs Date Time Temp Pulse Resp B/P (MAP) Pulse Ox O2 Delivery O2 Flow Rate FiO2 06/30/17 07:45 100 30 06/30/17 07:45 100 30 06/30/17 07:38 30 06/30/17 06:00 97 06/30/17 06:00 30 06/30/17 04:00 30 06/30/17 04:00 92 06/30/17 04:00 98.2 87 22 121/59 (79) 100 06/30/17 03:21 100 30 06/30/17 02:00 95 06/30/17 00:00 98.0 97 18 133/69 (90) 100 06/30/17 00:00 97 06/30/17 00:00 30 06/29/17 23:28 100 30 06/29/17 22:00 89 06/29/17 20:00 98.2 93 13 118/56 (76) 100 06/29/17 20:00 30 06/29/17 20:00 97 06/29/17 19:59 100 30 06/29/17 19:00 10 Mechanical Ventilator 30 06/29/17 16:00 40 06/29/17 16:00 98.1 98 17 127/61 (83) 100 06/29/17 15:34 102 122/62 06/29/17 15:11 100 35 06/29/17 14:20 40 06/29/17 12:00 35 06/29/17 12:00 98.0 90 14 127/ 100 Intake & Output 06/30/17 06/30/17 07:00 19:00 Intake Total 0 ml Output Total 475 ml Balance -475 ml Intake Oral 0 ml Output Urine Total 300 ml Gastric Drainage Total 100 ml Drainage Total 75 ml # Bowel Movements 0 Physical Exam CONSTITUTIONAL/GENERAL: This is an adequately nourished elderly female in no apparent distress. TUBES/LINES/DRAINS: ETT, NG, Ortega catheter, PIV's, central line to right subclavian, THANG drainage head. SKIN: No jaundice, rashes, or lesions. Ecchymoses on upper and lower extremities. Large area of ecchymosis to right arm. Skin temperature appropriate. Not diaphoretic. HEAD: Head wrapped with clean and dry dressing. THANG drainages with serosanguineous output. EYES: No scleral icterus. No injection or drainage. Mild periorbital edema bilaterally. ENT: Unable to evaluate hearing secondary to clinical condition. Nose without bleeding or purulent drainage. Moist oral mucosa. NECK: Trachea midline. Supple, nontender. CARDIOVASCULAR: Regular rate and rhythm without murmurs. Peripheral pulses symmetric. RESPIRATORY/CHEST: Symmetric, unlabored respirations. Coarse bilaterally. Endotracheally intubated on mechanical ventilation. GASTROINTESTINAL: Abdomen soft, non-tender, nondistended. Bowel sounds present. GENITOURINARY: Without palpable bladder distension. Ortega catheter in place. MUSCULOSKELETAL: Extremities without clubbing, cyanosis. No mottling or clubbing. NEUROLOGICAL: eyes open, not tracking or following any commands. Off sedation for over 72 hours. PSYCHIATRIC: Unable to evaluate secondary to clinical condition. . Diagnostic Tests Laboratory Laboratory Tests Test 06/28/17 04:10 06/28/17 05:00 06/28/17 14:45 06/28/17 23:59 White Blood Count 21.3 TH/MM3 (4.0-11.0) Red Blood Count 2.95 MIL/MM3 (4.00-5.30) Hemoglobin 8.3 GM/DL (11.6-15.3) Hematocrit 25.6 % (35.0-46.0) Mean Corpuscular Volume 86.6 FL (80.0-100.0) Mean Corpuscular Hemoglobin 28.0 PG (27.0-34.0) Mean Corpuscular Hemoglobin Concent 32.3 % (32.0-36.0) Red Cell Distribution Width 16.7 % (11.6-17.2) Platelet Count 213 TH/MM3 (150-450) Mean Platelet Volume 8.2 FL (7.0-11.0) Neutrophils (%) (Auto) 87.8 % (16.0-70.0) Lymphocytes (%) (Auto) 4.9 % (9.0-44.0) Monocytes (%) (Auto) 7.0 % (0.0-8.0) Eosinophils (%) (Auto) 0.0 % (0.0-4.0) Basophils (%) (Auto) 0.3 % (0.0-2.0) Neutrophils # (Auto) 18.7 TH/MM3 (1.8-7.7) Lymphocytes # (Auto) 1.0 TH/MM3 (1.0-4.8) Monocytes # (Auto) 1.5 TH/MM3 (0-0.9) Eosinophils # (Auto) 0.0 TH/MM3 (0-0.4) Basophils # (Auto) 0.1 TH/MM3 (0-0.2) CBC Comment DIFF FINAL Differential Comment Blood Urea Nitrogen 25 MG/DL (7-18) Creatinine 1.87 MG/DL (0.50-1.00) Random Glucose 141 MG/DL (74-106) Calcium Level 8.5 MG/DL (8.5-10.1) Phosphorus Level 3.9 MG/DL (2.5-4.9) 3.8 MG/DL (2.5-4.9) Magnesium Level 2.1 MG/DL (1.5-2.5) 2.1 MG/DL (1.5-2.5) Sodium Level 154 MEQ/L (136-145) Potassium Level 3.6 MEQ/L (3.5-5.1) Chloride Level 124 MEQ/L (98-107) Carbon Dioxide Level 18.1 MEQ/L (21.0-32.0) Anion Gap 12 MEQ/L (5-15) Estimat Glomerular Filtration Rate 26 ML/MIN (>89) Serum Osmolality 325 MOSM/KG (275-295) Blood Gas Puncture Site RIGHT PEDAL Blood Gas Patient Temperature 98.6 Blood Gas HCO3 17 mmol/L (22-26) Blood Gas Base Excess -8.5 mmol/L (-2-2) Blood Gas Oxygen Saturation 97 % (90-100) Arterial Blood pH 7.31 (7.380-7.420) Arterial Blood Partial Pressure CO2 33 mmHg (38-42) Arterial Blood Partial Pressure O2 125 mmHg (61-120) Arterial Blood Oxygen Content 14.6 Vol % (12.0-20.0) Arterial Blood Carboxyhemoglobin 1.0 % (0-4) Arterial Blood Methemoglobin 0.8 % (0-2) Blood Gas Hemoglobin 10.6 G/DL (12.0-16.0) Oxygen Delivery Device VENTILATOR Blood Gas Ventilator Setting PRVC/AC Blood Gas Inspired Oxygen 30 % Troponin I 0.12 NG/ML (0.02-0.05) Test 06/29/17 04:55 06/29/17 06:29 06/30/17 05:30 White Blood Count 20.3 TH/MM3 (4.0-11.0) 19.7 TH/MM3 (4.0-11.0) Red Blood Count 2.93 MIL/MM3 (4.00-5.30) 3.20 MIL/MM3 (4.00-5.30) Hemoglobin 8.1 GM/DL (11.6-15.3) 8.8 GM/DL (11.6-15.3) Hematocrit 25.3 % (35.0-46.0) 27.7 % (35.0-46.0) Mean Corpuscular Volume 86.4 FL (80.0-100.0) 86.4 FL (80.0-100.0) Mean Corpuscular Hemoglobin 27.8 PG (27.0-34.0) 27.6 PG (27.0-34.0) Mean Corpuscular Hemoglobin Concent 32.2 % (32.0-36.0) 31.9 % (32.0-36.0) Red Cell Distribution Width 16.6 % (11.6-17.2) 16.6 % (11.6-17.2) Platelet Count 214 TH/MM3 (150-450) 219 TH/MM3 (150-450) Mean Platelet Volume 8.2 FL (7.0-11.0) 8.4 FL (7.0-11.0) Neutrophils (%) (Auto) 86.9 % (16.0-70.0) 86.3 % (16.0-70.0) Lymphocytes (%) (Auto) 5.9 % (9.0-44.0) 6.8 % (9.0-44.0) Monocytes (%) (Auto) 7.0 % (0.0-8.0) 6.8 % (0.0-8.0) Eosinophils (%) (Auto) 0.0 % (0.0-4.0) 0.0 % (0.0-4.0) Basophils (%) (Auto) 0.2 % (0.0-2.0) 0.1 % (0.0-2.0) Neutrophils # (Auto) 17.6 TH/MM3 (1.8-7.7) 17.0 TH/MM3 (1.8-7.7) Lymphocytes # (Auto) 1.2 TH/MM3 (1.0-4.8) 1.3 TH/MM3 (1.0-4.8) Monocytes # (Auto) 1.4 TH/MM3 (0-0.9) 1.3 TH/MM3 (0-0.9) Eosinophils # (Auto) 0.0 TH/MM3 (0-0.4) 0.0 TH/MM3 (0-0.4) Basophils # (Auto) 0.1 TH/MM3 (0-0.2) 0.0 TH/MM3 (0-0.2) CBC Comment DIFF FINAL DIFF FINAL Differential Comment Blood Urea Nitrogen 39 MG/DL (7-18) 59 MG/DL (7-18) Creatinine 1.88 MG/DL (0.50-1.00) 2.33 MG/DL (0.50-1.00) Random Glucose 130 MG/DL (74-106) 128 MG/DL (74-106) Calcium Level 8.6 MG/DL (8.5-10.1) 8.7 MG/DL (8.5-10.1) Phosphorus Level 4.5 MG/DL (2.5-4.9) 5.2 MG/DL (2.5-4.9) Sodium Level 156 MEQ/L (136-145) 157 MEQ/L (136-145) Potassium Level 3.5 MEQ/L (3.5-5.1) 3.9 MEQ/L (3.5-5.1) Chloride Level 124 MEQ/L (98-107) 125 MEQ/L (98-107) Carbon Dioxide Level 18.7 MEQ/L (21.0-32.0) 17.6 MEQ/L (21.0-32.0) Anion Gap 13 MEQ/L (5-15) 14 MEQ/L (5-15) Estimat Glomerular Filtration Rate 26 ML/MIN (>89) 20 ML/MIN (>89) Blood Gas Puncture Site RT BRACHIAL Blood Gas Patient Temperature 98.6 Blood Gas HCO3 17 mmol/L (22-26) Blood Gas Base Excess -7.7 mmol/L (-2-2) Blood Gas Oxygen Saturation 87 % (90-100) Arterial Blood pH 7.33 (7.380-7.420) Arterial Blood Partial Pressure CO2 33 mmHg (38-42) Arterial Blood Partial Pressure O2 60 mmHg (61-120) Arterial Blood Oxygen Content 10.2 Vol % (12.0-20.0) Arterial Blood Carboxyhemoglobin 1.2 % (0-4) Arterial Blood Methemoglobin 0.7 % (0-2) Blood Gas Hemoglobin 8.3 G/DL (12.0-16.0) Oxygen Delivery Device VENTILATOR Blood Gas Ventilator Setting SEE COMMENT Blood Gas Inspired Oxygen 40 % Result Diagram: 06/30/17 0530 06/30/17 0530 Imaging Last [address] 06/29/17 0600 Signed Impressions: Service Date/Time: Thursday, June 29, 2017 04:21 - CONCLUSION: 1. Status post interval right craniotomy. 2. Interval decrease in size of the previous noted right subdural hematoma with a smaller residual high density subdural hematoma over the right frontal, parietal and temporal lobes. 3. Decreased mass effect and midline shift with no significant residual shift. Rodreick Poole MD Procedures * 06/25/17: Endotracheal intubation * 06/25/17: Left frontal bur hole with placement of an intracranial pressure monitor. * 06/25/17: Right frontal temporal parietal decompressive cranictomy, evacuation of subdural hematoma, duroplasty * 06/25/17: Left subclavian central line placement * 06/25/17: Endotracheal tube exchange . Assessment and Plan Disease Oriented Problem List: (1) Traumatic subdural hematoma (2) Traumatic brain injury (3) Respiratory failure (4) Hypertension (5) Chronic kidney disease (6) History of CVA (cerebrovascular accident) (7) History of meningioma Symptom Scale: (1) Debility 0-10 Scale: Unable to quantify (2) Dyspnea 0-10 Scale: Unable to quantify Pertinent Non-Medical Issues Psychosocial: Patient originally from [place]. Moved to [place] 23 years ago. to current for the past 23 years. Has 2 biological children, daughter Ameena resides in [place], son Aditya resides in [place]. 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 No service. Spiritual: Sabianist melita. Legal: Advance directives reported as completed. Pending copy. Ethical issues impacting care: No ethical issues identified. . Important Contacts Hemanth , . . Prognosis Mrs. Uribe is a 77-year-old female with a medical history significant for history of right-sided meningioma, prior CVA, hypertension, hyperlipidemia, GERD , anxiety and mild dementia. Patient was found on the floor at home by her , EMS was called. CT revealing large subdural hematoma, she underwent right frontal temporal parietal decompressive craniectomy, evacuation of subdural hematoma, duroplasty as well as left frontal jeevan hole with placement of an intracranial pressure monitor. Patient with recent previous subdural hematoma status post craniotomy for evacuation on 04/16/17. Prognosis is guarded at this time given massive head trauma/traumatic brain injury, multiple comorbidities, physical deconditioning and advanced age. . Code Status: No Code Plan * CODE STATUS: No code. * HEALTHCARE DECISION-MAKING: Patient unable to participating medical decision making secondary to clinical condition. Will not to regain capacity given severity of brain injury. Advanced directives completed. Patient has elected her Hemanth Uribe as healthcare surrogate decision maker, alternate surrogate is daughter Elena Villanueva. has fully accepted this role. * GOALS OF CARE: Patient's Hemanth Uribe acting as healthcare surrogate decision maker has elected to transition patient to comfort-directed care/withdrawal of life support given overall poor prognosis for a meaningful recovery and patient's known wishes as stated in her living will. Exhibits B & C signed. Anticipatory guidance provided. * SYMPTOMS: Comfort-directed medication for pain, anxiety and shortness of breath on board. * Spiritual services offered and accepted. Chemical Dependency Therapist Paddy consulted. * Case discussed with bedside RN Debo, Dr. Higginbotham and Dr. Stephens. * Palliative care contact information has been provided to patient and family. * Palliative care will continue to follow up for further clarification of goals of care as patient's clinical course continues to evolve. . Time Spent Total Floor Time (mins): 45 (Total time to inclure review of medical records, physical exam, GOC conversation with , case discussion with bedside RN, attending Dr. Higginbotham and Dr. Stephens. ) >50% Counseling/Coord of Care: Yes Attestation To help prompt me to consider important information that might be impacting today's encounter and assessment, information from prior notes written by myself or my colleagues may have been "brought forward" into today's note. My signature on this note, however, is an attestation that I personally performed the exam, history, and/or decision-making noted today, and, unless otherwise indicated, the interactions with patient, family, and staff as well as the review of records all occurred today. I also attest that the listed assessment and stated plan reflect my best clinical judgment today based on the combination of historical information, prior notes, and today's exam/ interactions. When time spent is documented, it refers only to time spent today by the signer, or if indicated, combined time spent today by collaborating physician/nurse practitioner. Jazlyn Cole Jun 30, 2017 10:33
[2017-06-30] MEDS ORDERED: LORazepam 2 MG/ML VIAL IV PUSH ONE ×2 (10:45→11:00)
[2017-06-30] MEDS ORDERED: HYOSCYAMINE 0.5 MG/ML AMP IV PUSH ONE (10:45)
[2017-06-30] MEDS ORDERED: HYDROmorphone HCL PF 2 MG/ML VIAL IV PUSH ONE ×2 (10:45→11:00)
[2017-06-30] MEDS: CHLORHEXIDINE 0.12% (ORAL KIT) 15 ML CUP MT SCH (10:45)
[2017-06-30] MEDS ORDERED: FUROSEMIDE 20 MG/2 ML VIAL IV PUSH PRN (11:15)
[2017-06-30] MEDS ORDERED: HYOSCYAMINE 0.5 MG/ML AMP IV PUSH PRN (11:15)
[2017-06-30] MEDS ORDERED: LORazepam 2 MG/ML VIAL IV PUSH PRN ×3 (11:15)
[2017-06-30] MEDS ORDERED: HYDROmorphone HCL PF 2 MG/ML VIAL IV PUSH PRN ×2 (11:15)
[2017-06-30] MEDS ORDERED: ACETAMINOPHEN 650 MG SUPP RECTAL PRN (11:15)
[2017-06-30] MEDS ORDERED: BISACODYL 10 MG SUPP RECTAL PRN (11:15)
[2017-06-30] MEDS ORDERED: LORazepam 2 MG/ML VIAL IV PUSH SCH (12:00)
[2017-06-30] MEDS ORDERED: HYDROmorphone HCL PF 2 MG/ML VIAL IV PUSH SCH (12:00)
--- NOTE | 2017-06-30 13:27 | HHI.NSPN ---
(Bonny Salmon) Note Status Status: Progress Note (Bonny Salmon) Interval History Interval History Ms. Uribe is an adult female who was brought to [facility] as a trauma alert with a severe traumatic brain injury. She had a GCS of 4 with a right pupil dilated and fixed and anisocoria. CT of the brain showed a right hemispheric large acute subdural hematoma with mass effect and midline shift. She underwent an emergent right frontal temporal parietal decompressive craniotomy, evacuation of subdural hematoma, duroplasty with placement of ICP monitor on Jun 25, 2017 for large right subdural hematoma 06/26: intubated, sedated, ICPs currently 10. pupils now 3 mm bilateral 06/30: ICPs controlled. Remains intubated and sedated. Mildly opens eyes. (Bonny Slamon) Labs, Micro, & Vital Signs Results Date Time Temp Pulse Resp B/P (MAP) Pulse Ox O2 Delivery O2 Flow Rate FiO2 06/30/17 11:32 Room Air 21 06/30/17 07:45 100 30 06/30/17 07:45 100 30 06/30/17 07:38 30 06/30/17 06:00 97 06/30/17 06:00 30 06/30/17 04:00 30 06/30/17 04:00 92 06/30/17 04:00 98.2 87 22 121/59 (79) 100 06/30/17 03:21 100 30 06/30/17 02:00 95 06/30/17 00:00 98.0 97 18 133/69 (90) 100 06/30/17 00:00 97 06/30/17 00:00 30 06/29/17 23:28 100 30 06/29/17 22:00 89 06/29/17 20:00 98.2 93 13 118/56 (76) 100 06/29/17 20:00 30 06/29/17 20:00 97 06/29/17 19:59 100 30 06/29/17 19:00 10 Mechanical Ventilator 30 06/29/17 16:00 40 06/29/17 16:00 98.1 98 17 127/61 (83) 100 06/29/17 15:34 102 122/62 06/29/17 15:11 100 35 06/29/17 14:20 40 07/01/17 07:00 Intake Total 121 ml Balance 121 ml Constitutional Vital Signs Date Time Temp Pulse Resp B/P (MAP) Pulse Ox O2 Delivery O2 Flow Rate FiO2 06/30/17 11:32 Room Air 21 06/30/17 07:45 100 30 06/30/17 07:45 100 30 06/30/17 07:38 30 06/30/17 06:00 97 06/30/17 06:00 30 06/30/17 04:00 30 06/30/17 04:00 92 06/30/17 04:00 98.2 87 22 121/59 (79) 100 06/30/17 03:21 100 30 06/30/17 02:00 95 06/30/17 00:00 98.0 97 18 133/69 (90) 100 06/30/17 00:00 97 06/30/17 00:00 30 06/29/17 23:28 100 30 06/29/17 22:00 89 06/29/17 20:00 98.2 93 13 118/56 (76) 100 06/29/17 20:00 30 06/29/17 20:00 97 06/29/17 19:59 100 30 06/29/17 19:00 10 Mechanical Ventilator 30 06/29/17 16:00 40 06/29/17 16:00 98.1 98 17 127/61 (83) 100 06/29/17 15:34 102 122/62 06/29/17 15:11 100 35 06/29/17 14:20 40 07/01/17 07:00 Intake Total 121 ml Balance 121 ml (Bonny Salmon) Review of Systems ROS Limitations: Intubated (Bonny Salmon) Physical Exam Intubated, mildly sedated Right craniectomy site slightly sunken, soft to palpate. Wounds are healing well ICPs controlled Minimal eye opening, currently not following commands for testing (Bonny Salmon) Medications Current Medications Current Medications Medications (Trade) Dose Ordered Sig/Felice Route PRN Reason Start Time Stop Time Status Last Admin Dose Admin Naloxone HCl (Narcan Inj) 0.4 mg UNSCH PRN IV PUSH SEE LABEL COMMENTS 06/25/17 11:15 Chlorhexidine Gluconate (Peridex 0.12% Liq) 15 ml BID@08,20 MT 06/25/17 20:00 06/30/17 10:45 Levetriacetam 500 mg/Sodium Chloride 105 ml @ 420 mls/hr Q12HR IV 06/25/17 20:00 06/29/17 22:02 Clonidine (Catapres-Tts 0.3 Mg Patch.7d) 1 patch Q7D T-DERMAL 06/26/17 12:00 06/26/17 16:25 Miscellaneous Information 1 Q7D T-DERMAL 07/03/17 12:00 Hydromorphone HCl (Dilaudid Pf Inj) 1 mg Q4HR IV PUSH 06/30/17 12:00 Hydromorphone HCl (Dilaudid Pf Inj) 1 mg Q30M PRN IV PUSH SEE LABEL COMMENTS 06/30/17 11:15 Hydromorphone HCl (Dilaudid Pf Inj) 2 mg Q30M PRN IV PUSH SEE LABEL COMMENTS 06/30/17 11:15 Lorazepam (Ativan Inj) 1 mg Q4HR IV PUSH 06/30/17 12:00 Lorazepam (Ativan Inj) 1 mg Q1H PRN IV PUSH SEE LABEL COMMENTS 06/30/17 11:15 Lorazepam (Ativan Inj) 2 mg Q1H PRN IV PUSH SEE LABEL COMMENTS 06/30/17 11:15 Lorazepam (Ativan Inj) 2 mg Q15M PRN IV PUSH SEIZURES 06/30/17 11:15 Hyoscyamine Sulfate (Levsin Inj) 0.25 mg Q4H PRN IV PUSH SECRETIONS 06/30/17 11:15 Acetaminophen (Tylenol Supp) 650 mg Q4H PRN RECTAL FEVER 06/30/17 11:15 Furosemide (Lasix Inj) 20 mg Q6H PRN IV PUSH Pulmonary Congestion 06/30/17 11:15 Bisacodyl (Dulcolax Supp) 10 mg DAILY PRN RECTAL CONSTIPATION 06/30/17 11:15 (Bonny Salmon) Medical Decision Making MDM Remarks 77 y/o female s/p emergent right frontal temporal parietal decompressive craniotomy, evacuation of subdural hematoma, duroplasty with placement of ICP monitor 06/25/17 (Bonny Salmon) Plan Plan Remarks ICP monitor discontinued, continue neuro checks and follow-up examination sedation and vent weaning as tolerated cont critical care management (Bonny Salmon) Attending Statement The exam, history, and the medical decision-making described in the above note were completed with the assistance of the mid-level provider. I reviewed and agree with the findings presented. I attest that I had a [id number] encounter with the patient on the same day, and personally performed and documented my assessment and findings in the medical record. (Matti España MD) Bonny Salmon Jun 30, 2017 13:27 Matti España MD Jun 30, 2017 19:31
--- NOTE | 2017-06-30 17:11 | HHI.DS ---
Discharge Summary Admission Date Jun 25, 2017 at 10:28 Discharge Date: Jun 30, 2017 Admitting Diagnosis Subduran hematoma (1) Respiratory failure ICD Code: J96.90 - Respiratory failure, unspecified, unspecified whether with hypoxia or hypercapnia Diagnosis: Principal Status: Acute (2) Traumatic brain injury ICD Code: S06.9X9A - Unspecified intracranial injury with loss of consciousness of unspecified duration, initial encounter Diagnosis: Principal Status: Acute Brief History Fall. CBC/BMP: 06/30/17 0530 06/30/17 0530 Significant Findings Laboratory Tests Test 06/28/17 04:10 06/28/17 05:00 06/28/17 14:45 06/28/17 23:59 White Blood Count 21.3 TH/MM3 (4.0-11.0) Red Blood Count 2.95 MIL/MM3 (4.00-5.30) Hemoglobin 8.3 GM/DL (11.6-15.3) Hematocrit 25.6 % (35.0-46.0) Neutrophils (%) (Auto) 87.8 % (16.0-70.0) Lymphocytes (%) (Auto) 4.9 % (9.0-44.0) Neutrophils # (Auto) 18.7 TH/MM3 (1.8-7.7) Monocytes # (Auto) 1.5 TH/MM3 (0-0.9) Blood Urea Nitrogen 25 MG/DL (7-18) Creatinine 1.87 MG/DL (0.50-1.00) Random Glucose 141 MG/DL (74-106) Sodium Level 154 MEQ/L (136-145) Chloride Level 124 MEQ/L (98-107) Carbon Dioxide Level 18.1 MEQ/L (21.0-32.0) Estimat Glomerular Filtration Rate 26 ML/MIN (>89) Serum Osmolality 325 MOSM/KG (275-295) Blood Gas HCO3 17 mmol/L (22-26) Blood Gas Base Excess -8.5 mmol/L (-2-2) Arterial Blood pH 7.31 (7.380-7.420) Arterial Blood Partial Pressure CO2 33 mmHg (38-42) Arterial Blood Partial Pressure O2 125 mmHg (61-120) Blood Gas Hemoglobin 10.6 G/DL (12.0-16.0) Troponin I 0.12 NG/ML (0.02-0.05) Test 06/29/17 04:55 06/29/17 06:29 06/30/17 05:30 White Blood Count 20.3 TH/MM3 (4.0-11.0) 19.7 TH/MM3 (4.0-11.0) Red Blood Count 2.93 MIL/MM3 (4.00-5.30) 3.20 MIL/MM3 (4.00-5.30) Hemoglobin 8.1 GM/DL (11.6-15.3) 8.8 GM/DL (11.6-15.3) Hematocrit 25.3 % (35.0-46.0) 27.7 % (35.0-46.0) Neutrophils (%) (Auto) 86.9 % (16.0-70.0) 86.3 % (16.0-70.0) Lymphocytes (%) (Auto) 5.9 % (9.0-44.0) 6.8 % (9.0-44.0) Neutrophils # (Auto) 17.6 TH/MM3 (1.8-7.7) 17.0 TH/MM3 (1.8-7.7) Monocytes # (Auto) 1.4 TH/MM3 (0-0.9) 1.3 TH/MM3 (0-0.9) Blood Urea Nitrogen 39 MG/DL (7-18) 59 MG/DL (7-18) Creatinine 1.88 MG/DL (0.50-1.00) 2.33 MG/DL (0.50-1.00) Random Glucose 130 MG/DL (74-106) 128 MG/DL (74-106) Sodium Level 156 MEQ/L (136-145) 157 MEQ/L (136-145) Chloride Level 124 MEQ/L (98-107) 125 MEQ/L (98-107) Carbon Dioxide Level 18.7 MEQ/L (21.0-32.0) 17.6 MEQ/L (21.0-32.0) Estimat Glomerular Filtration Rate 26 ML/MIN (>89) 20 ML/MIN (>89) Blood Gas HCO3 17 mmol/L (22-26) Blood Gas Base Excess -7.7 mmol/L (-2-2) Blood Gas Oxygen Saturation 87 % (90-100) Arterial Blood pH 7.33 (7.380-7.420) Arterial Blood Partial Pressure CO2 33 mmHg (38-42) Arterial Blood Partial Pressure O2 60 mmHg (61-120) Arterial Blood Oxygen Content 10.2 Vol % (12.0-20.0) Blood Gas Hemoglobin 8.3 G/DL (12.0-16.0) Mean Corpuscular Hemoglobin Concent 31.9 % (32.0-36.0) Phosphorus Level 5.2 MG/DL (2.5-4.9) Hospital Course [facility] [place]: This is an Unfortunately 77-year-old lady found at home unconscious and transferred to our institution from another hospital According to the medics patient had Bk Coma Scale of 3 and right pupil first fixed and dilated She was transferred to our institution as priority 1 trauma alert resuscitated and worked up Patient is found to have large right subdural hematoma with a shift Immediately taken to the operating room for emergency right craniotomy with subdural hematoma evacuation and a left frontal jeevan hole placement with intracranial pressure monitor 24 Hour Review/Hospital Course 06/27/2017 Since arrival patient has been in the ICU intubated ventilated Neuroprotective measures including propofol and fentanyl ICP remains very low 3% hypertonic saline at 30 cc/h Hemodynamically patient is stable however quite hypertensive requiring multiple antihypertensives including Lopressor Amlodipine Lisinopril Patient was placed on nicardipine drip and today this was removed due better control the blood pressure Remains on the ventilator on assist control ventilation CPAP trial patient is apneic Renal function preserved Plan Patient remains ventilatory dependent all the sedation has been removedBut patient is not responding to any stimuli Bk Coma Scale remains 3 Low hemoglobin especially in this age group however there is express wish for patient not to have any blood or blood products and we are finding out whether she is Oriental orthodox 06/28/2017 Patient slightly more awake today opens her eyes but she did not follow any commands in my presence Hemodynamically stable however developed A. fib with RVR this afternoon Placed on amiodarone drip protocol maintaining blood pressure Bilateral breath sounds remains on assist control ventilatory mode Renal function preserved Patient is somewhat anemic but there is a clear warning in the chart the patient refuses blood or blood products In face of patient's age and general status as well as prospects of recovery the care is been discussed with her by neurosurgeon Dr. España and decision was made to go ahead for about 3 days and if patient does not significantly improve not to escalate care further I will discuss this with her again tomorrow and I will follow his wishes 06/29/2017 Patient remains neurologically unchanged Opens eyes occasionally does not track Told that she follows occasional command but I have not seen myself Remains of any sedation Sodium 1 56 mEq/L and serum osmolality 325 mOsm per liter I have sat down with her and discussed the situation at length. Patient apparently is living well and states he would never wanted her to be like this and neither would she Therefore patient remains DNR we will not escalate the therapy and tomorrow will organize meeting with palliative care at which point probably patient will be disconnected from further support and allowed to pass in peace 06/30/2017 Palliative care is assisting with comfort care and management. The decision to withdraw care is made by the patient's and transition to comfort care. The patient is extubated and allowed to naturally and with dignity in the presence of her . 06/30/2017 @ 1135 the patient is pronounced . No response to pain. No corneal reflex. Gag reflex. No cough reflex. No spontaneous respirations. No apical pulse. environmental monitoring technician shows asystole in 2 leads. May Bre rest in peace. Pt Condition on Discharge: Deteriorating Yazmin Roper Jun 30, 2017 17:11
[2017-07-03] MEDS ORDERED: REMOVE OLD CATAPRES (CLONIDINE) PATCH T-DERMAL SCH (12:00)
== END 2017-06-30 11:35 | disposition expired | DRG 25 ==
LOC: NEPI 09:46 → NEDA 10:28 → MERGE 10:28 → EDBD 10:28 → N03B 15:47
PROVIDERS: ADMIT Surgery; ATTEND Surgery
PROC: 00H032Z Insertion of Monitoring Device into Brain, Percutaneous Approach (ICD-10-PCS; 2017-06-25)
PROC: 4A103BD Monitoring of Intracranial Pressure, Percutaneous Approach (ICD-10-PCS; 2017-06-25)
PROC: 05H633Z Insertion of Infusion Device into Left Subclavian Vein, Percutaneous Approach (ICD-10-PCS; 2017-06-25)
PROC: 5A1945Z Respiratory Ventilation, 24-96 Consecutive Hours (ICD-10-PCS; 2017-06-25)
PROC: 0B21XEZ Change Endotracheal Airway in Trachea, External Approach (ICD-10-PCS; 2017-06-25)
PROC: 00C40ZZ Extirpation of Matter from Intracranial Subdural Space, Open Approach (ICD-10-PCS; principal; 2017-06-25 10:39)
DX: S06.5X9A Traumatic subdural hemorrhage with loss of consciousness of unspecified duration, initial encounter (principal); J96.90 Respiratory failure, unspecified, unspecified whether with hypoxia or hypercapnia; Z99.11 Dependence on respirator [ventilator] status; N18.9 Chronic kidney disease, unspecified; R29.6 Repeated falls; Z66 Do not resuscitate; W19.XXXA Unspecified fall, initial encounter; Y93.9 Activity, unspecified; Y92.008 Other place in unspecified non-institutional (private) residence as the place of occurrence of the external cause; Z51.5 Encounter for palliative care; E78.5 Hyperlipidemia, unspecified; I12.9 Hypertensive chronic kidney disease with stage 1 through stage 4 chronic kidney disease, or unspecified chronic kidney disease; K21.9 Gastro-esophageal reflux disease without esophagitis; F03.90 Unspecified dementia, unspecified severity, without behavioral disturbance, psychotic disturbance, mood disturbance, and anxiety; F41.9 Anxiety disorder, unspecified; I71.2 Thoracic aortic aneurysm, without rupture; M25.569 Pain in unspecified knee; R32 Unspecified urinary incontinence; E03.9 Hypothyroidism, unspecified; I46.9 Cardiac arrest, cause unspecified; I48.91 Unspecified atrial fibrillation; D64.9 Anemia, unspecified; Z86.73 Personal history of transient ischemic attack (TIA), and cerebral infarction without residual deficits; Z86.011 Personal history of benign neoplasm of the brain; Z53.1 Procedure and treatment not carried out because of patient's decision for reasons of belief and group pressure
CPT/HCPCS: 31500; 36600; 70450; 71045; 71260; 72125; 72170; 74177; 80048; 82805; 82948; 83735; 83930; 84100; 84155; 84295; 84484; 85025; 85610; 85730; 86850; 86900; 86901; 88304; 90471; 90715; 93005; 94002; 94003; 94770; 96374; 99291; G0390; J0282; J0690; J1170; J1580; J1940; J1953; J2060; J2150; J2370; J3010; J3370; J3480; J7030; J7050; J7120; Q9967